=== PATIENT | female | born 1950 | race Caucasian/White ===

== ENCOUNTER 2022-11-05 07:15 | Outpatient (REF) | payer MEDICARE, OTHER, SELFPAY ==
[2022-11-05 08:05] LABS: Bilirubin Urine NEGATIVE (NEGATIVE); Blood Urine NEGATIVE (NEGATIVE); Clarity Urine CLEAR (CLEAR); Color Urine LT. YELLOW (YELLOW); Glucose Urine UA NEGATIVE (NEGATIVE); Ketones Urine NEGATIVE (NEGATIVE); Leukocyte Esterase Urine TRACE (NEGATIVE); Nitrite Urine NEGATIVE (NEGATIVE); Protein Urine NEGATIVE (NEG/TRACE); Specific Gravity Urine 1.015 (1.005-1.025); Urobilinogen Urine 0.2 EU/dL (0.2-1.0)
[2022-11-05 08:38] LABS: Bacteria Urine NONE SEEN #/HPF (NONE SEEN); Mucus Urine NONE SEEN (NONE SEEN); RBC Urine 0-2 #/HPF (0-2); WBC Urine 0-2 #/HPF (NONE SEEN)
[2022-11-05 08:39] LABS: Squamous Epithelial Cell Urine RARE #/LPF (NONE/RARE); Transitional Epi Cells Urine RARE #/LPF (NONE SEEN)
[2022-11-05 08:40] LABS: Cast Seen? NONE SEEN #/LPF (NONE SEEN); Crystals Seen? None Seen #/HPF (None Seen); Urine Culture Indicated ALREADY ORDERED
== END 2022-11-05 07:16 | disposition home or self-care (01) ==
LOC: LAB 07:15
PROVIDERS: PCP Internal Medicine; Visit Provider Internal Medicine
DX: R39.15 Urgency of urination (principal)
CPT/HCPCS: 81001; 87086

== ENCOUNTER 2022-11-24 14:41 | Outpatient (OUT) | payer MEDICARE, OTHER, SELFPAY | END 2022-11-24 14:42 | disposition home or self-care (01) | LOC: PST 14:42 | PROVIDERS: PCP Internal Medicine; Visit Provider Surgery | DX: Z01.818 Encounter for other preprocedural examination (principal); Z12.11 Encounter for screening for malignant neoplasm of colon; R13.14 Dysphagia, pharyngoesophageal phase ==

== ENCOUNTER 2022-12-03 07:36 | Day surgery (SDC) | payer MEDICARE, OTHER, SELFPAY ==
--- NOTE | 2022-12-03 | OP_ITS ---
OPERATION DATE: ??12/03/2022 PREOPERATIVE DIAGNOSIS:? Dysphagia, colorectal screening. POSTOPERATIVE DIAGNOSIS:? Antral gastritis, mild, as well as small hiatal hernia and redundant colon. PROCEDURE:? EGD with antral biopsy and colonoscopy to cecum. SURGEON:? Hayden Boston M.D. ANESTHESIA:? Monitored anesthesia care. ESTIMATED BLOOD LOSS:? Less than 1 mL. INDICATIONS AND CONSENT:? Patient is a 72-year-old female with intermittent dysphagia, as well as need for colorectal screening.? Indications, risks, benefits, alternatives of proceeding with EGD and colonoscopy were explained extensively to the patient, including the risks of bleeding, aspiration, esophageal/gastric/duodenal or colonic perforation or anesthetic complications.? All of her questions were answered.? Informed consent was obtained. PROCEDURE:? Patient brought to the operating room, placed in the left lateral decubitus position.? Monitored anesthesia care was provided.? Bite block was placed in the patient?s mouth.? Scope was inserted into the oropharynx.? Under direct visualization, it was advanced into the esophagus, past the cricopharyngeus, down to the stomach.? The stomach was insufflated with air.? The pylorus was traversed down to the descending portion of the duodenum.? There was no evidence of duodenitis or ulceration.? There was no scarring within the pyloric channel.?? Scope was pulled back into the stomach and retroflexed.? There was noted to be a small, sliding type hiatal hernia.? There was mild antral gastritis without ulcerations or bleeding.? Biopsy was obtained x2 with the pediatric cold biopsy forceps with good hemostasis.? The GE junction was noted at approximately 34 cm.? There was no distal esophagitis or Vicente?s changes. ?The remainder of the esophagus was unremarkable.? The scope was then withdrawn.? Patient was then positioned for colonoscopy.? Rectal exam was performed, which showed no masses or blood.? The scope was inserted into the anal canal.? Under direct visualization, it was advanced.? With the aid of abdominal compression, it was advanced to the cecum where cecal markings were clearly identified.? There was noted to be a good prep.? Upon withdrawal of the scope, mucosal surfaces were carefully examined.? There were no mass lesions or polyps.? No inflammatory changes or ulcerations.? No significant diverticulosis.? There was noted to be a redundant colon with spasm.? The scope was retroflexed in the anal canal.? There was no significant hemorrhoidal disease.? The scope was then withdrawn.? The patient tolerated procedure well, was sent to recovery room in good condition. f/u colonoscopy should be in 10 years if patient is in good health CC:? Dr. Michael GRIMM
[2022-12-03 08:01] VITALS: BP 124/57; PULSE 78; RESP 16; TEMP 36.1; O2SAT 100; BMI 24.5
[2022-12-03] MEDS: LACTATED RINGER'S SOLUTION 1,000 ML 50 ML IV (08:24)
[2022-12-03 10:16] VITALS: BP 95/62; PULSE 78; RESP 18; TEMP 36.1; O2SAT 100
[2022-12-03 10:31] VITALS: BP 102/65; PULSE 72; RESP 16; O2SAT 99
[2022-12-03 10:46] VITALS: BP 122/73; PULSE 72; RESP 16; O2SAT 100
== END 2022-12-03 10:46 | disposition home or self-care (01) ==
PROVIDERS: PCP Internal Medicine; Visit Provider Surgery
PROC: (CPT 43239; principal; 2022-12-03 08:45)
DX: Z12.11 Encounter for screening for malignant neoplasm of colon (principal); R13.14 Dysphagia, pharyngoesophageal phase; K29.50 Unspecified chronic gastritis without bleeding; K44.9 Diaphragmatic hernia without obstruction or gangrene; Q43.8 Other specified congenital malformations of intestine; D64.9 Anemia, unspecified; F41.9 Anxiety disorder, unspecified; K21.9 Gastro-esophageal reflux disease without esophagitis; Z94.89 Other transplanted organ and tissue status; Z86.010 Personal history of colon polyps; E03.9 Hypothyroidism, unspecified; C90.00 Multiple myeloma not having achieved remission; Z86.711 Personal history of pulmonary embolism; G47.30 Sleep apnea, unspecified; G62.9 Polyneuropathy, unspecified; Z79.899 Other long term (current) drug therapy
CPT/HCPCS: 43239; G0121; J2704

== ENCOUNTER 2023-07-30 10:37 | Outpatient (OUT) | payer MEDICARE, OTHER, SELFPAY ==
--- NOTE | 2023-07-30 10:45 | XR_ITS ---
The [address] [address] Patient Name: RYLAND GREENE MRN: [id number] date: 1950 Sex: F Assigned Patient Location: [facility] Current Patient Location: Accession/Order Number: [id number] Exam Date: 07/30/2023 10:55 Report Date: 07/31/2023 08:57 At the request of: ESTRELLA PRIETO Procedure: XR chest 2V EXAMINATION: XR chest 2V HISTORY: Cough R05.9 COMPARISON: XR chest 06/30/2022, CT chest 04/17/2022 FINDINGS: LUNGS: Mild haziness within lateral left lung base partially obscuring the costophrenic angle. VASCULATURE: No increased pulmonary vasculature. PLEURA: No pneumothorax, effusion, or pleural thickening. CARDIAC: No cardiomegaly or cardiac silhouette abnormality. MEDIASTINUM: No visible mass or adenopathy. BONES: Stable dense nodular like areas projecting over left lung secondary to known rib lesions. OTHER: Negative. XR/XR chest 2V IMPRESSION: 1. Trace amount of lingular atelectasis versus infiltrates. Electronically authenticated by: GREG MILLAN Date: 07/31/2023 08:57
== END 2023-07-30 10:38 | disposition home or self-care (01) ==
PROVIDERS: PCP Internal Medicine; Visit Provider Internal Medicine
DX: R05.9 Cough, unspecified (principal)
CPT/HCPCS: 71046

== ENCOUNTER 2023-08-20 16:16 | Outpatient (OUT) | payer MEDICARE, OTHER, SELFPAY ==
--- NOTE | 2023-08-20 16:47 | XR_ITS ---
The [address] [address] Patient Name: RYLAND GREENE MRN: [id number] date: 1950 Sex: F Assigned Patient Location: [facility] Current Patient Location: Accession/Order Number: [id number] Exam Date: 08/20/2023 16:38 Report Date: 08/21/2023 07:08 At the request of: ESTRELLA PRIETO Procedure: XR shoulder LT min 2V PROCEDURE: XR shoulder LT min 2V COMPARISON: None. HISTORY: M25.512 Pain in left shoulder FINDINGS: BONES:No acute fracture or dislocation. Mild acromioclavicular joint osteoarthritis with 3 mm of subacromial spurring. Degenerative spondylosis of the spine SOFT TISSUES:Negative. No visible soft tissue swelling. EFFUSION:None visible. OTHER: Negative. XR/XR shoulder LT min 2V IMPRESSION: Mild osteoarthritis Electronically authenticated by: PATSY REEDER Date: 08/21/2023 07:08
--- NOTE | 2023-08-20 16:47 | XR_ITS ---
The [place] [id number] Patient Name: RYLAND GREENE MRN: [id number] date: 1950 Sex: F Assigned Patient Location: [facility] Current Patient Location: [facility] Accession/Order Number: [id number] Exam Date: 08/20/2023 16:38 Report Date: 08/21/2023 07:31 At the request of: ESTRELLA PRIETO Procedure: XR cervical spine 5V EXAMINATION: XR cervical spine 5V HISTORY: M54.2 Cervicalgia COMPARISON: No relevant comparison available. FINDINGS: BONES: Normal alignment with no acute fracture or spondylolisthesis. Moderate to severe degenerative spondylosis and facet osteoarthropathy DISC SPACES: Normal. No significant disc height narrowing, subluxation, or endplate abnormality. PARASPINOUS: Negative. No paraspinous abnormality is seen. OTHER: No transient spondylolisthesis with flexion or extension XR/XR cervical spine 5V IMPRESSION: Moderate to severe degenerative changes with no dynamic instability Electronically authenticated by: PATSY REEDER Date: 08/21/2023 07:31
== END 2023-08-20 16:17 | disposition home or self-care (01) ==
PROVIDERS: PCP Internal Medicine; Visit Provider Internal Medicine
DX: M25.512 Pain in left shoulder (principal); M54.2 Cervicalgia
CPT/HCPCS: 72050; 73030

== ENCOUNTER 2023-09-04 06:00 | Outpatient (RCR) | payer MEDICARE, OTHER, SELFPAY | END 2023-10-30 15:06 | disposition home or self-care (01) | LOC: PT 06:00 | PROVIDERS: PCP Internal Medicine; Visit Provider Internal Medicine | DX: M54.2 Cervicalgia (principal); M25.519 Pain in unspecified shoulder; M62.81 Muscle weakness (generalized) | CPT/HCPCS: 20561; 97110; 97140; 97161 ==

== ENCOUNTER 2024-01-01 11:34 | Outpatient (OUT) | payer MEDICARE, OTHER, SELFPAY ==
--- NOTE | 2024-01-01 12:01 | CT_ITS ---
The [address] [address] Patient Name: RYLAND GREENE MRN: [id number] date: 1950 Sex: F Assigned Patient Location: LAB Current Patient Location: Accession/Order Number: [id number] Exam Date: 01/01/2024 12:18 Report Date: 01/05/2024 07:38 At the request of: ESTRELLA PRIETO Procedure: CT chest w con EXAMINATION: CT chest w con HISTORY: Persistent Cough, Dyspnea COMPARISON: 04/17/2022 TECHNIQUE: Multi-planar CT images were created with IV contrast. Axial, Coronal, and Sagittal images. Dose reduction techniques were achieved by using automated exposure control and/or adjustment of mA and/or kV according to patient size and/or use of iterative reconstruction technique. FINDINGS: LUNGS: Soft tissue in the trachea likely retained mucus. A few scattered punctate pulmonary nodules the largest 3 mm right upper lobe axial image 41 PLEURA: No mass, effusion, or pneumothorax. VASCULATURE: No abnormality. DAYAN: No mass or adenopathy. MEDIASTINUM: No mass or adenopathy. CARDIAC: No enlargement, pericardial thickening, or significant calcification. AORTA: No aneurysm or dissection. CHEST WALL: No mass or axillary adenopathy. BONES: Remote rib fractures LIMITED ABDOMEN: Diffuse hypoattenuation the liver consistent with hepatic steatosis OTHER: Negative. CT/CT chest w con IMPRESSION: No acute abnormality Electronically authenticated by: PATSY REEDER Date: 01/05/2024 07:38
[2024-01-01 12:08] LABS: Estimated GFR (African America >60 (>=60 mL/min/1.73m^2); Estimated GFR (Non-African Ame >60 (>=60 mL/min/1.73m^2)
== END 2024-01-01 11:35 | disposition home or self-care (01) ==
LOC: LAB 11:35
PROVIDERS: PCP Internal Medicine; Visit Provider Internal Medicine
DX: R05.3 Chronic cough (principal); R06.00 Dyspnea, unspecified; C90.00 Multiple myeloma not having achieved remission
CPT/HCPCS: 36415; 71260; 82565; Q9967

== ENCOUNTER 2024-02-02 10:53 | Outpatient (OUT) | payer MEDICARE, OTHER, SELFPAY ==
--- NOTE | 2024-02-02 11:09 | XR_ITS ---
The [address] [address] Patient Name: RYLAND GREENE MRN: [id number] date: 1950 Sex: F Assigned Patient Location: [facility] Current Patient Location: Accession/Order Number: [id number] Exam Date: 02/02/2024 11:20 Report Date: 02/04/2024 04:32 At the request of: ESTRELLA PRIETO Procedure: XR thoracic spine 3V EXAMINATION: XR thoracic spine 3V HISTORY: Back Pain COMPARISON: CT chest 01/01/2024 FINDINGS: BONES: Mild left convex curvature of thoracic spine. Grossly stable moderate compression fractures of T6, 7, and 8 vertebral bodies. Prior marked compression fractures and vertebroplasty of T12 and L1. DISC SPACES: Multilevel moderate narrowing. PARASPINOUS: Negative. No paraspinous abnormality is seen. OTHER: Negative. XR/XR thoracic spine 3V IMPRESSION: 1. Moderate compression fractures of T6, T7, and T8 vertebral bodies, but grossly stable compared to 01/01/2024. 2. Stable remote marked compression fractures of T12 and L1 with prior vertebroplasty. 3. No appreciable acute abnormality. Multilevel degenerative disc disease. Electronically authenticated by: GREG MILLAN Date: 02/04/2024 04:32
== END 2024-02-02 10:54 | disposition home or self-care (01) ==
LOC: RAD 10:55
PROVIDERS: PCP Internal Medicine; Visit Provider Internal Medicine
DX: M54.9 Dorsalgia, unspecified (principal); M48.54XD Collapsed vertebra, not elsewhere classified, thoracic region, subsequent encounter for fracture with routine healing; M48.56XD Collapsed vertebra, not elsewhere classified, lumbar region, subsequent encounter for fracture with routine healing; M51.34 Other intervertebral disc degeneration, thoracic region
CPT/HCPCS: 72072

== ENCOUNTER 2024-06-22 10:12 | Outpatient (OUT) | payer MEDICARE, OTHER, SELFPAY ==
--- NOTE | 2024-06-22 10:23 | XR_ITS ---
The [place] [id number] Patient Name: RYLAND GREENE MRN: [id number] date: 1950 Sex: F Assigned Patient Location: [facility] Current Patient Location: [facility] Accession/Order Number: [id number] Exam Date: 06/22/2024 11:09 Report Date: 06/22/2024 11:10 At the request of: ESTRELLA PRIETO DO Procedure: XR chest 2V Chest 2 views CLINICAL HISTORY: Chronic cough COMPARISON: CT chest 01/01/2024 FINDINGS: Heart normal in size. No lung consolidation pneumothorax pleural effusion or free air. Healed left-sided rib fractures. Compression deformities involving the thoracic spine similar to the prior study. XR/XR chest 2V IMPRESSION: NO ACUTE CARDIOPULMONARY ABNORMALITY. Impression dictated by: Ike Mack Jr., DRimmaORimma 06/22/2024 11:10 AM Dictation Location: [place] [employer] Electronically authenticated by: [id number] Y Date: 06/22/2024 11:10
== END 2024-06-22 10:13 | disposition home or self-care (01) ==
LOC: RAD 10:16
PROVIDERS: PCP Internal Medicine; Visit Provider Internal Medicine
DX: R05.3 Chronic cough (principal)
CPT/HCPCS: 71046

== ENCOUNTER 2024-08-10 08:29 | Outpatient (REF) | payer MEDICARE, OTHER, SELFPAY ==
--- OUTSIDE RECORDS SUMMARY | 2024-08-03 06:02 | XMS_ITS | Continuity of Care Document ---
Author Organization [facility] Address [address] [place] [address] Phone Support Name Relationship Address Phone [facility] [employer] [address] [place] [address] Wong Javed DO Personal Relationship [address] [place] [address] Rm Tate MD Personal Relationship Unknown Unavailable Care Teams Patient Care Team Team Status: Active Member Role Status Dates Wong Javed DO Primary Care Provider Active Visit Care Team Team Status: Inactive Member Role Status Dilhsad Javed DO Primary Care Provide r, Attending Provider Active Start: June 08, 2024 End: June 08, 2024 Visit Care Team Team Status: Active Member Role Status Dilshad Javed DO Primary Care Provider Active Start: June 15, 2024 Rm Tate MD Attending Provider Active St art: June 15, 2024 Visit Care Team Team Status: Inactive Member Role Status Dilshda Javed DO Primary Care Provide r, Attending Provider Active Start: July 20, 2024 End: July 20, 2024 Patient Care Team Team Status: Inactive Member Role Status Dilshad Javed DO Primary Care Provide r, Attending Provider Active Start: August 03, 2024 End: August 03, 2024 Chief Complaint and Reason for Visit Chief Complaint Admit Date headache, sore throat,cough June 08, 2024 3:13pm 1 week follow up July 20, 2024 11:39 am UA, Frequency, burning August 03, 2024 9 :52am Reason for Visit Admit Date Immunosuppression due to drug therapy Ap ril 2024 3:13pm Acute bronchitis due to other specified organisms June 08, 2024 3:13pm Allergic rhinitis July 20, 2024 11:39 am JOANNE (generalized anxiety disorder) June 242024 11:39am Hypothyroidism July 20, 2024 11:39 am Multiple myeloma July 20, 2024 11:39 am Persistent cough July 20, 2024 11:39 am Allergies, Adverse Reactions, Alerts Allergen Type Severity Reaction Last Updated Verified Status Comments acetaminophen Allergy Unknown Unknown Reaction June 08, 2024 3:17pm Yes Active clindamycin Allergy Unknown Vomiting June 08, 2024 3:17pm Yes Active Onset Date: 10/12/2012 lenalidomide Allergy Unknown Unknown Reaction June 08, 2024 3:17pm Yes Active oxycodone Allergy Unknown Unknown Reaction June 08, 2024 3:17pm Yes Active propoxyphene Allergy Unknown Unknown Reaction June 08, 2024 3:17pm Yes Active Sulfa (Sulfonamide Antibiotics) Allergy Unknown Unknown Reaction June 08, 2024 3:17pm Yes Active sulfamethoxazole Allergy Unknown Rash June 08, 2024 3:17pm Yes Active tramadol Allergy Unknown Rapid heart rate June 08, 2024 3:17pm Yes Active trimethoprim Allergy Unknown Rash June 08, 2024 3:17pm Yes Active zolpidem Allergy Unknown Anxiety June 08, 2024 3:17pm Yes Active codeine Allergy Unknown Unknown Reaction June 08, 2024 3:17pm Yes Active Antihistamine Allergy Unknown Unknown Reaction June 22, 2023 10:56am No Active zolpidem Allergy Unknown Rash October 09, 2023 1:37pm No Active antihistamines Adverse Reaction Unknown Anxiety March 12, 2021 11:00pm No Active Social History Smoking Status Status Start Date End Date Date of Observa tion Never smoked tobacco (finding) December 17, 2023 8:54am Observation Status Observation Response Date of Response Patient Sex Female August 03, 2024 10:01am Assigned Sex Female March Family History Relationship Condition Age at Onset Recorded Date/T rj father Heart disease Unknown Unknown mother History of stroke Unknown Unknown Problems Active Problems Medical Problem Onset Date Status Comments Immunosuppression due to drug therapy Act abraham JOANNE (generalized anxiety disorder) Active Pancytopenia due to chemotherapy Active Chronic pain Active Bone cancer Active myeloma diagnos ed in 2016 Back pain Active Hypothyroidism Active Lower extremity weakness Active Cervical spondylosis Active Anemia associated with chemotherapy Activ e Allergic rhinitis Active Chronic vasomotor rhinitis Active Arthritis of lumbosacral spine Active Multiple myeloma Active Persistent cough Active CXR: normal - T: normal - 06/2024 Inactive/Resolved Problems Medical Problem Onset Date Status Comments Acute pulmonary embolism Resolved Compression fracture Resolved Rash Resolved Medications Medication Status Dose Units Route Directions Qty Days St art Date Stop Date End Date Instructions Clonazepam 0.5 mg tablet Discont inued 0.5 MG PO Twice daily 60 30 June 03, 2023 1:29pm [facility] 2023 4:57p m Levothyroxin e 25 mcg tablet Discont inued 0 .ROUTE .COMPLEX 90 August 20, 2023 5:53pm Augus t 2023 1:43p m Take 1 tablet by mouth once daily Clonazepam 1 mg tablet Discont inued 0.5 MG PO Twice daily 30 2023 4:57pm 2023 5:03p m Clonazepam 1 mg tablet Discont inued 0.5 MG PO Twice daily 30 2023 5:03pm May 02, 2024 9:58a m Sertraline 100 mg tablet Discont inued 150 MG PO Bedtime 135 90 Novemb er 2023 1:04pm Feb 2024 6:44p m Benzonatate 200 mg capsule Discont inued 200 MG PO Three times daily 30 10 Novemb er 2023 1:58pm Feb 2024 10:18 pm Nabumetone 750 mg tablet Active 750 MG PO Twice daily 28 14 Decemb er 2023 11:51a m Ciprofloxaci n Hcl 250 mg tablet Discont inued 250 MG PO Twice daily 10 5 Decemb er 2023 1:00am Feb 2024 10:39 am Benzonatate 200 mg capsule Discont inued 200 MG PO Three times daily 30 2024 10:17p m April 25, 2024 2:03p m Sertraline 100 mg tablet Active 0 .ROUTE .COMPLEX 135 2024 6:44pm TAKE 1 & 1/2 (ONE & ONE-HALF) TABLETS BY MOUTH AT BEDTIME Benzonatate 200 mg capsule Discont inued 200 MG PO Three times daily 30 April 25, 2024 2:03pm May 02, 2024 8:40a m Benzonatate 200 mg capsule Discont inued 200 MG PO Three times daily 30 May 02, 2024 8:40am June 14, 2024 5:50p m Clonazepam 1 mg tablet Discont inued 0.5 MG PO Twice daily May 02, 2024 9:58am May 18, 2024 12:42 pm Gabapentin 100 mg capsule Active 300 MG PO Daily at bedtime May 18, 2024 12:41p m Clonazepam 1 mg tablet Active 0.5 MG PO Twice daily May 18, 2024 12:41p m Benzonatate 200 mg capsule Active 200 MG PO Three times daily 30 June 14, 2024 5:50pm Albuterol Sulfate 90 mcg/actuatio n HFA aerosol inhaler Discont inued 2 PUFF INHALA TION Every 6 hours as needed for cough or wheezing 8.5 June 22, 2024 12:00a m June 22, 2024 2:36p m Inhalational Spacing Device (Aerochamber Mini) spacer Discont inued 0 .ROUTE .MEDSUPPLY June 22, 2024 12:00a m June 22, 2024 2:36p m As directed Inhalational Spacing Device (Aerochamber Mini) spacer Active 0 .ROUTE .MEDSUPPLY June 22, 2024 2:35pm As directed Albuterol Sulfate 90 mcg/actuatio n HFA aerosol inhaler Active 2 PUFF INHALA TION Every 6 hours as needed for cough or wheezing 8.5 June 22, 2024 2:35pm Prednisone 20 mg tablet Discont inued 20 MG PO As Directed 10 29July 13, 2024 12:00a m July 13, 2024 1:33p m 1 tab bid w/ food x 3 days, then qd w/ food x 3 days Prednisone 20 mg tablet Discont inued 20 MG PO As Directed 10 29July 13, 2024 1:33pm July 20, 2024 9:59p m 1 tab bid w/ food x 3 days, then qd w/ food x 3 days Budesonide-F ormoterol (Symbicort) 80-4.5 mcg/actuatio n HFA aerosol inhaler Active 2 PUFF INHALA TION Every 12 hours 10.2 August 01, 2024 11:47a m Levothyroxin e 25 mcg Tablet Discont inued 25 MCG PO Daily Septem gagan 2016 12:00a m August 20, 2023 5:53p m Citalopram 20 mg Tablet Discont inued 20 MG PO Daily Septem gagan 2016 12:00a m Octob er 2016 3:41p m Esomeprazole Magnesium (Nexium) 40 mg Capsule,Fozia yed Release(Dr/E c) Discont inued 40 MG PO Daily Septem gagan 2016 12:00a m Septe mber 2016 9:42a m Gabapentin 100 mg Capsule Discont inued 100 MG PO Three times daily Septem gagan 2016 12:00a m Octob er 2016 3:40p m Clonazepam 0.5 mg Tablet,Disin tegrating Discont inued 0.5 TAB PO Twice daily Septem gagan 2016 12:00a m Octob er 2016 4:34p m Pantoprazole 40 mg tablet,delay ed release (DR/EC) Discont inued 40 MG PO Daily Oct gagan 2016 12:00a m [facility] gagan 2020 6:55p m Hydrocodone- Acetaminophe n 5-325 mg Tablet Discont inued 0.5 TAB PO Three times daily as needed for Pain Octobe r 2016 12:00a m [facility] 2016 3:23p m Clonazepam 0.5 mg Tablet Discont inued 0.5 MG PO [facility] 12:00[facility] m May 26, 2023 10:48 am Hydromorphon e (Dilaudid) 2 mg Tablet Discont inued 2 MG PO Q4H as needed for Pain 2017 1:00am June 10, 2017 9:26a m Warfarin (Coumadin) 2.5 mg tablet Discont inued 2.5 MG PO Twice a Week 2017 7:18am September 04, 2017 6:59a m Warfarin (Coumadin) 5 mg Tablet Discont inued 5 MG PO 5 TIMES PER WEEK June 01, 2017 12:00a m September 04, 2017 6:59a m Sertraline (Zoloft) 100 mg Tablet Discont inued 150 MG PO Daily at bedtime September 19, 2020 12:00a m Febua 2021 3:05a m Gabapentin 300 mg Capsule Discont inued 600 MG PO Daily at bedtime September 19, 2020 12:00a m July 31, 2023 8:35a m Gabapentin 300 mg Capsule Discont inued 300 MG PO Every morning September 19, 2020 12:00a m July 22, 2023 11:09 am Aspirin 81 mg Tablet Discont inued 81 MG PO Daily September 19, 2020 12:00a m Decem gagan 2020 6:55p m Melatonin 5 mg Tablet Discont inued 10 MG PO Bedtime September 19, 2020 12:00a m Decem gagan 2020 6:55p m Mecobalamin (Vitamin B12) (B12 Active) 1,000 mcg Tablet,Chewa ble Active 1000 MCG PO Daily September 19, 2020 12:00a m Sertraline 100 mg tablet Discont inued 150 MG PO Bedtime 2021 1:00am 2023 1:05p m Neomycin-Gorge ymyxin B-Dexameth 3.5 mg/g-10,000 unit/g-0.1 % ointment Discont inued 2021 1:00am 2021 3:33a m Lenalidomide (Revlimid) 10 mg capsule Discont inued 10 MG PO Daily 2021 1:00am July 31, 2023 8:41a m Ascorbic Acid (Vitamin C) (Vitamin C) 1,000 mg Tablet Discont inued 1000 UNITS PO daily Novemb er 2016 12:00a m September 20, 2020 11:29 am Acyclovir 400 mg Tablet Discont inued 400 MG PO Daily Novemb er 2016 12:00a m July 31, 2023 8:36a m Docusate Sodium (Colace) 100 mg Capsule Discont inued 200 MG PO Three times daily as needed for Constipatio n Novemb er 2016 12:00a m Febru krystal 2017 7:18a m Diclofenac Potassium 25 mg Capsule Discont inued 75 MG PO daily Novemb er 2016 12:00a m Novem gagan 2016 2:55p m Warfarin (Coumadin) 2.5 mg Tablet Discont inued 5 MG PO Once 30 Novemb er 2016 1:00am Febru krystal2017 7:18a m Enoxaparin (Lovenox) 80 mg/0.8 mL syringe Discont inued 70 MG SUBCUT Q12H 0.8 Novemb er 2016 1:00am Febru 2017 7:18a m Until INR > 2 for two days Docusate Sodium (Colace) 100 mg Capsule Discont inued 100 MG PO Daily as needed for Constipatio n May 08, 2017 12:00a m June 10, 2017 9:26a m Amitriptylin e 10 mg tablet Discont inued 1 TAB PO Daily at bedtime May 08, 2017 12:00a m September 19, 2020 3:17p m Warfarin 5 mg Tablet Discont inued 1 TAB PO As Directed June 10, 2017 12:00a m September 08, 2017 7:43a m Warfarin 5 mg tablet Discont inued 5 MG PO As Directed September 16, 2017 12:00a m September 19, 2020 3:12p m Rivaroxaban (Xarelto) 10 mg tablet Discont inued TABLET September 16, 2017 12:00a m September 16, 2017 2:31p m Thalidomide (Thalomid) 50 mg capsule Discont inued 50 MG PO Bedtime [facility] er 2020 1:00am Janua ry 2021 3:32a m Levofloxacin 500 mg tablet Discont inued 500 MG PO Daily [facility] er 2020 1:00am Dece gagan 2020 3:21p m UNTIL 02/11 Oxybutynin Chloride 5 mg tablet extended release 24hr Discont inued 5 MG PO Daily [facility] er 2020 1:00am July 22, 2023 11:09 am Nystatin (Nystop) 100,000 unit/gram Powder Discont inued 1 APPLIC TOPICA L Three times daily 15 [facility] er 2020 1:00am Janua ry 2021 3:33a m Use until rash is resolved Levofloxacin 750 mg tablet Discont inued 750 MG PO Daily 7 7 Decemb er 2020 1:00am Janua ry 2021 3:31a m Azithromycin 250 mg tablet Discont inued 250 MG PO As Directed 6 5 July 22, 2023 12:00a m July 31, 2023 8:37a m Gabapentin 100 mg capsule Discont inued 300 MG PO Daily at bedtime July 31, 2023 12:00a m May 18, 2024 12:42 pm [employer] Orally q HS; Note: Source Status: Taking; Provider: Tello Back ( ) Loperamide (Imodium A-D) 2 mg tablet Discont inued 2 MG PO Four times daily July 31, 2023 12:00a m July 31, 2023 8:42a m Albuterol Sulfate 90 mcg/actuatio n HFA aerosol inhaler Discont inued 2 PUFF INHALA TION Every 4 hours July 31, 2023 12:00a m July 31, 2023 8:41a m Benzonatate 200 mg capsule Discont inued 200 MG PO Three times daily July 31, 2023 12:00a m July 31, 2023 8:41a m Phenazopyrid ine 200 mg tablet Discont inued 200 MG PO Three times daily July 31, 2023 12:00a m July 31, 2023 8:42a m Acyclovir 400 mg tablet Discont inued 400 MG PO Twice daily July 31, 2023 12:00a m Febua ry 2024 10:25 am Levofloxacin 750 mg tablet Discont inued 750 MG PO Daily 5 5 July 31, 2023 12:00a m Augus t 2023 1:45p m Benzonatate 200 mg capsule Discont inued 200 MG PO Three times daily 30 July 31, 2023 12:00a m Novem gagan 2023 1:58p m Cephalexin 500 mg capsule Discont inued 500 MG PO Three times daily 12 09 Sept gagan 2023 12:00a m Octob er 2023 12:14 pm Azithromycin 250 mg tablet Discont inued 250 MG PO .COMPLEX 6 5 Octobe r 2023 12:00a m Decem gagan 2023 11:54 am 2 tabs on first day followed by 1 tab on days 2-5 Azithromycin 250 mg tablet Discont inued 250 MG PO .COMPLEX 6 5 r 2024 1:00am Febru krystal 2024 12:49 pm 2 tabs on first day followed by 1 tab on days 2-5 Azithromycin 250 mg tablet Discont inued 250 MG PO .COMPLEX 6 5 June 08, 2024 12:00a m July 20, 2024 9:59p m 2 tabs on first day followed by 1 tab on days 2-5 Clonazepam 0.5 mg tablet Discont inued 0.5 MG PO Twice daily May 26, 2023 12:00a m May 26, 2023 12:56 pm Clonazepam 0.5 mg tablet Discont inued 0.5 MG PO Twice daily 180 May 26, 2023 12:55p m June 02, 2023 4:37p m Clonazepam 0.5 mg tablet Discont inued 0.5 MG PO Twice daily 60 June 02, 2023 4:37pm June 03, 2023 1:30p m Nabumetone 750 mg tablet Discont inued 750 MG PO Twice daily 28 August 28, 2023 12:00a m Decem gagan 2023 11:52 am Azithromycin 250 mg tablet Discont inued 250 MG PO As Directed 6 October 09, 2023 12:00a m Octob er 2023 12:14 pm Levothyroxin e 25 mcg tablet Active 25 MCG PO Daily October 09, 2023 1:46pm Azithromycin 250 mg tablet Discont inued 250 MG PO .COMPLEX 6 5 ry 2024 12:49p m June 08, 2024 3:17p m 2 tabs on first day followed by 1 tab on days 2-5 Budesonide-F ormoterol (Symbicort) 80-4.5 mcg/actuatio n HFA aerosol inhaler Discont inued 2 PUFF INHALA TION Every 12 hours 10.2 July 20, 2024 12:00a m August 01, 2024 11:47 am Immunizations Immunization Event Date Not Given Reason Dose Number Insurance Policy Issue Clerk Lot Number Vaccine Information Statement (VIS) Detail COVID-19 mRNA-1273 (Moderna) March 10, 2020 COVID-19 mRNA-1273 (Moderna) April 06, 2020 DTap, unspecified May 23, 2016 influenza, unspecified formulation December 06, 2014 influenza, unspecified formulation December 06, 2015 influenza, unspecified formulation December 15, 2016 influenza, unspecified formulation December 08, 2017 influenza, unspecified formulation December 16, 2018 influenza, unspecified formulation November 16, 2019 influenza, unspecified formulation November 25, 2021 Pneumococcal Conjugate Vaccine, 13 valent April 05, 2015 Pneumococcal Polysacc. Vaccine, 23 valent December 12, 2013 Tetanus, Diphtheria adult, 5 Lf pres free abs November 26, 2012 Tetanus, Diphtheria adult, 5 Lf pres free abs December 12, 2013 Shingles (Zoster) June 07, 2014 Shingles (Zoster) March 06, 2021 Medical Equipment Device Date Implanted Device Details KYPHON XPEDE BONE CEMENT December 12, 2016 CONFIDENCE KIT NO NEEDLES March 30, 2017 Relevant Diagnostic Tests and/or Laboratory Data Laboratory Results Test Date/Time Result Interpretation Reference Range Result Comment Performing Site POC SARS-CoV-2 RNA (WILLIAM) June 08, 2024 3:28pm Negative Serum Immunofixati on June 15, 2024 10:29am No M protein is identified. No M protein is identified. Albumin (Send Out) June 15, 2024 10:29am 4.20 g/dL 3.43-5.41 Absolute CD3 Count June 15, 2024 10:29am 853 cells/uL Below low normal [phone] Free [place]/Lambda Light Chain Ratio June 15, 2024 10:29am 0.80 0.26-1.65 Immunoglobul in A June 15, 2024 10:29am 92 mg/dL 70-400 Serum Total Protein June 15, 2024 10:29am 6.4 g/dL 6.3-8.0 Alanine Aminotransfe rase (ALT/SGPT) June 15, 2024 10:29am 10 U/L 7-38 Basophils # (Auto) June 15, 2024 10:29am 0.03 k/uL <0.11 Leuk/Lymph Sign Pathologist (Misc) June 15, 2024 10:29am Reviewed by Rosangela Zuniga MD [id number] ulins June 15, 2024 10:29am 0.32 g/dL 0.18-0.43 Positive Lymphocyte Count (Cell Imm June 15, 2024 10:29am 19 % Below low normal 34-61 Free Lambda Light Chains, Quant June 15, 2024 10:29am 10.6 mg/L 5.7-26.3 Rarely, increased serum free light chains levels may not be detected or accurately quantified due to prozone phenomenon or in high viscosity samples using this immunoturbidime tric assay. Correlation with other laboratory results and clinical findings is recommended. The Lambda Free Light Chain was performed using the Binding Site Optilite immunoturbidime tric method. Result obtained with different assay methods or kits cannot be used interchangeably . Immunoglobul in G June 15, 2024 10:29am 694 mg/dL Below low normal 700-1600 Albumin June 15, 2024 10:29am 4.3 g/dL 3.9-4.9 Basophils (%) (Auto) June 15, 2024 10:29am 0.6 % [id number] ulins June 15, 2024 10:29am 0.63 g/dL 0.42-0.98 Percent CD3 Cells June 15, 2024 10:29am 69 % 60-89 Free [place] Light Chains, Quant June 15, 2024 10:29am 8.5 mg/L 3.3-19.4 Rarely, increased serum free light chains levels may not be detected or accurately quantified due to prozone phenomenon or in high viscosity samples using this immunoturbidime tric assay. Correlation with other laboratory results and clinical findings is recommended. The [place] Free Light Chain was performed using the Binding Site Optilite immunoturbidime tric method. Result obtained with different assay methods or kits cannot be used interchangeably . Immunoglobul in M June 15, 2024 10:29am 118 mg/dL 40-230 Aspartate Amino Transf (AST/SGOT) June 15, 2024 10:29am 19 U/L 13-35 Eosinophils # (Auto) June 15, 2024 10:29am 0.16 k/uL <0.46 Beta Globulins June 15, 2024 10:29am 0.67 g/dL 0.61-1.17 Absolute CD3/CD4 Count June 15, 2024 10:29am 237 cells/uL Below low normal 533-1674 Total Bilirubin June 15, 2024 10:29am 0.5 mg/dL 0.2-1.3 Eosinophils (%) (Auto) June 15, 2024 10:29am 3.2 % Gamma Globulins June 15, 2024 10:29am 0.58 g/dL 0.53-1.51 Carbon Dioxide Level June 15, 2024 10:29am 31 mmol/L Above high normal 22-30 Hemoglobin June 15, 2024 10:29am 12.8 g/dL 11.5-15.5 Protein Electrophore sis Note June 15, 2024 10:29am No definitive M protein is identified on protein electrophor esis. No definitive M protein is identified on protein electrophor esis. Chloride Level June 15, 2024 10:29am 98 mmol/L 98-107 Lymphocytes # (Auto) June 15, 2024 10:29am 1.26 k/uL 1.00-4.00 Protein Electrophore sis M-Kit June 15, 2024 10:29am 0.00 g/dL <=0.00 Creatinine June 15, 2024 10:29am 0.80 mg/dL 0.58-0.96 Lymphocytes (%) (Auto) June 15, 2024 10:29am 25.0 % Miscellaneou s Test 6 June 15, 2024 10:29am See comment Not Applicable. Glucose Level June 15, 2024 10:29am 95 mg/dL 74-99 The [place] Diabetes Association (ADA) provides guidance for cutoff values for fasting glucose and random glucose. The ADA defines fasting as no caloric intake for at least 8 hours. Fasting plasma glucose results between 100 to 125 mg/dL indicate increased risk for diabetes (prediabetes).F asting plasma glucose results greater than or equal to 126 mg/dL meet the criteria for diagnosis of diabetes. In the absence of unequivocal hyperglycemia, results should be confirmed by repeat testing. In a patient with classic symptoms of hyperglycemia or hyperglycemic crisis, random plasma glucose results greater than or equal to 200 mg/dL meet the criteria for diagnosis of diabetes.Refere nce: Standards of Medical Care in Diabetes 2016, [place] Diabetes Association. Diabetes Care. 2016.39(Suppl 1). Monocytes # (Auto) June 15, 2024 10:29am 0.37 k/uL <0.87 Miscellaneou s Test Comment June 15, 2024 10:29am Reviewed by Rosangela Zuniga MD Potassium Level June 15, 2024 10:29am 3.5 mmol/L Below low normal 3.7-5.1 Neutrophils # (Auto) June 15, 2024 10:29am 3.19 k/uL 1.45-7.50 Neutrophils (%) (Auto) June 15, 2024 10:29am 63.4 % Sodium Level June 15, 2024 10:29am 139 mmol/L 136-144 Nucleated Red Blood Cells # June 15, 2024 10:29am <0.01 k/uL <0.01 Blood Urea Nitrogen June 15, 2024 10:29am 12 mg/dL 7-21 Platelet Count June 15, 2024 10:29am 149 k/uL Below low normal 150-400 Alkaline Phosphatase June 15, 2024 10:29am 93 U/L 34-123 Mean Corpuscular Hemoglobin June 15, 2024 10:29am 30.9 pg 26.0-34.0 Calcium Level June 15, 2024 10:29am 10.1 mg/dL 8.5-10.2 Mean Corpuscular Hemoglobin Concent June 15, 2024 10:29am 33.4 g/dL 30.5-36.0 Anion Gap June 15, 2024 10:29am 10 mmol/L 8-15 Mean Corpuscular Volume June 15, 2024 10:29am 92.5 fL 80.0-100.0 Estimated GFR (CKD-EPI) June 15, 2024 10:29am 76 mL/min/1.73 m??? >=60 Estimated Glomerular Filtration Rate (eGFR) is calculated using the 2020 CKD-EPI creatinine equation. This equation utilizes serum creatinine, sex, and age as parameters. The creatinine assay has traceable calibration to isotope dilution-mass spectrometry. Refer to KDIGO guidelines for clinical interpretation. In patients with unstable renal function, e.g. those with acute kidney injury, the eGFR may not accurately reflect actual GFR. Red Blood Count June 15, 2024 10:29am 4.14 m/uL 3.90-5.20 Hematocrit June 15, 2024 10:29am 38.3 % 36.0-46.0 Monocytes (%) (Auto) June 15, 2024 10:29am 7.4 % Corrected White Blood Count June 15, 2024 10:29am 5.03 k/uL 3.70-11.00 Nucleated RBC Relative Count (auto) June 15, 2024 10:29am 0.0 /100{WBC} Red Cell Distribution Width June 15, 2024 10:29am 12.9 % 11.5-15.0 Mean Platelet Volume June 15, 2024 10:29am 9.3 fL 9.0-12.7 Differential Comment June 15, 2024 10:29am Auto Immature Granulocyte # (Auto) June 15, 2024 10:29am <0.03 k/uL <0.10 Immature Granulocyte % (Auto) June 15, 2024 10:29am 0.4 % Vital Signs Vital Reading Result Reference Range Collection Date/Time Height 63 [in_i] June 08 3:20pm Weight 61.34 kg June 08 3:20pm Heart Rate 92 /min 60-100 June 08 3:20pm Respiratory rate 12 /min 12-24 June 08, 2024 3:20pm BP Systolic 114 mm[Hg] 100-140 June 08 3:20pm BP Diastolic 75 mm[Hg] 60-100 June 08 3:20pm BMI (Body Mass Index) 23.9 kg/m2 June 08, 2024 3:20pm Height 63 [in_i] July 20, 2024 11:52am Weight 61.29 kg July 20, 2024 11:52am Heart Rate 86 /min 60-100 July 20, 2024 11:52am Respiratory rate 12 /min 12-24 July 20, 2 025 11:52am BP Systolic 95 mm[Hg] 100-140 July 20, 2024 11:52am BP Diastolic 61 mm[Hg] 60-100 July 20, 2024 11:52am BMI (Body Mass Index) 23.9 kg/m2 July 202024 11:52am Advance Directives Advance Directive Response Recorded Date/ Time Advance Directives Yes December 17, 2023 8:54am Insurance Providers Guarantor Matilda Owens Address [address] [address] Contact Info. Home Phone: Payer Policy Id Coverage Id Subscriber's Name Subscriber Id Effective Date Expiration Date Medicare [id number] Matilda Owens [id number] Medicare [employer] [id number] Matilda Owens [id number] Medicare Nonpatient [id number] Matilda Owens [id number] Encounters Encounter Location(s) Arrival/Admit Date Discharge/Depart Date Provider(s) Departed Physician/Prov ider Office Visit [facility] Physician [facility] June 08, 2024 3:13pm June 08, 2024 3:58pm Wong Javed DO Non-patient / Non-visit [facility] Physician [facility] June 15, 2024 10:29am Rm Tate MD Departed Physician/Prov ider Office Visit [facility] July 20, 2024 11:39am July 20, 2024 12:34pm Wong Javed DO Departed Physician/Prov ider Office Visit [facility] August 03, 2024 9:52am August 03, 2024 10:01am Wong Javed DO Recent Diagnosis Onset Date Admit Date Immunosuppression due to drug therapy June 08, 2024 3:13pm Acute bronchitis due to other specified organism s June 08, 2024 3:13pm Allergic rhinitis July 20, 2024 11:39am JOANNE (generalized anxiety disorder) July 20, 2024 11:39am Hypothyroidism July 20, 2024 1 1:39am Multiple myeloma July 20, 2024 11:39am Persistent cough July 20, 2024 11:39am Assessments Diagnosis Onset Date Resolution Status Admit Date Immunosuppression due to kris g therapy acute June 08, 2024 3:13pm Acute bronchitis due to othe r specified organisms deleted June 08, 2024 3:13pm Allergic rhinitis acute June 11:39am JOANNE (generalized anxiety disorder) a cute July 20, 2024 11:39am Hypothyroidism acute July 20, 2024 11:39am Multiple myeloma acute June 11:39am Persistent cough acute June 11:39am Plan of Treatment Author Wong [facility] Authored June 08, 2024 3:4 5pm I have instructed this patie nt to use Robitussin or Mucinex for cough, saline and Flonase NS for congestion and Tylenol for pain and fever. Continue antibiotics until all the medication has been taken. Report to the ER if develop any CP or SOB She completed CAR-T for Multiple Myeloma Treatment to avoid severe infection. Author Wong [facility] Authored July 20, 2024 10:05 pm Began w/ URI in early May,. Cough is generally nonproductive w/ thick sputum expectorated on occasion. Denies CP, SOB, palpitations, Orthopnea or PND Denies fever, chills or additional symptoms of intercurrent infection CXR: normal - 05/2024 CT: normal - 06/2024 Schedule PFT Refer to Pulmonology Completed CAR-T immunotherapy. No s/s recurrence f/u Oncology Instructed on healthy diet and low intensity exercise. Continue Clonazepam and Sertraline w/o interruption Clinically euthyroid, monitor TSH yearly Continue Flonase daily. Future Tests Future scheduled test information is unavailable Pending Tests Pending diagnostic test information is unavailable Future Visits Future appointment information is unavailable Referrals to Other Providers Reason for Referral Referral Start Date Provider Provider Contact Information Provider Address R05.3 - Chronic cough July 20, 2024 Nya Esposito DO Work Phone: [phone] [facility] [address] Future Procedures Procedure Name Ordered Date Scheduled Date Complete Pulmonary Function July 20, 2024 10:05 pm Future Medications Future medication information is unavailable Patient Instructions Patient instructions are unavailable
--- OUTSIDE RECORDS SUMMARY | 2024-08-10 08:35 | XMS_ITS | Clinical Summary ---
Author Organization [facility] Address [address] [place] [address] Care Team Providers Care Basket Braider Name Role Phone Unavailable Primary Care Provider Unavailabl e Social History Tobacco Use Types Packs/Day Years Used Date Smoking Tobacco: Never Assessed Comments Unknown Sex and Gender Information Value Date Recorded Sex Assigned at Not on file Legal Sex Female 12:25 PM EDT Gender Identity Not on file Sexual Orientation Not on file Plan of Treatment Not on file Insurance MEDICARE
--- OUTSIDE RECORDS SUMMARY | 2024-08-10 08:35 | XMS_ITS | Encounter Summary ---
Author Organization [facility] Address [address] [place] [address] Care Team Providers Care Director Summer Sessions Name Role Phone Wong Javed DO Primary Care Provider [phone] Rm Tate MD Unavailable [phone] Gracia Bruner MD Unavailable France Boswell RN Unavailable Unavailable Source Comments In the event this information is protected by the Federal Confidentiality of Alcohol and Drug AbusePatient Records regulations: The Federal rules restrict any use of the information to criminally investigate or prosecute any alcohol or drug abuse patient.[facility] Reason for Visit * Reason Comments Refill Request Encounter Details Date Type Department Care Team (Late st Contact Info) Description 04/04/2024 Refill Hematology/Oncology [address] [place] [address] [place] [address] Rm Tate MD [address] [facility] [place] [address] Refill Request Social History Tobacco Use Types Packs/Day Years Used Date Smoking Tobacco: Never Passive Smoke Exposure: Past Smokeless Tobacco: Never Alcohol Use Standard Drinks/Week Comments Yes 0 (1 standard drink = 0.6 oz pur e alcohol) socially PHQ-2 Answer Date Recorded PHQ-2 score 0 03/09/2024 Area Deprivation Index Answer Date Bryan rded National Score (1-100), lower number is lower ri sk Not on file 01/28/2020 State Score (1-10), lower number is lower risk N ot on file 01/28/2020 Data from: https://www.neighborhoodatlas.medicine.[facility]/. 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 Answer Date of Assessment Author No 01/06/2022 11:27 AM Emperatriz Gonzales RN * Are you blind or do you have serious difficulty seeing, even when wearing glasses? Answer Date of Assessment Author No 01/06/2022 11:27 AM Emperatriz Gonzales RN * Do you have serious difficulty walking or climbing stairs? Answer Date of Assessment Author No 01/06/2022 11:27 AM Emperatriz Gonzales RN * Do you have difficulty dressing or bathing? Answer Date of Assessment Author No 01/06/2022 11:27 AM Emperatriz Gonzales RN * Because of a physical, mental, or emotional condition, do you have difficulty doing errands alone such as visiting a doctor's office or shopping? Answer Date of Assessment Author No 01/06/2022 11:27 AM Emperatriz Gonzales RN documented as of this encounter Mental Status * Because of a physical, mental, or emotional condition, do you have serious difficulty concentrating, remembering, or making decisions? Answer Entry Date Author No 01/06/2022 11:27 AM Emperatriz Gonzales RN documented in this encounter Plan of Treatment Upcoming Encounters Date Type Department Care Team (Latest Contact Info) Description 09/30/2024 9:45 AM EDT Visit (SP) Office Hematology [address] [place], [place] [id number] Rm Tate MD [address] [place] [address] Tate 09/29/24, labs 1 week prior documented as of this encounter Visit Diagnoses Not on filedocumented in this encounter Care Teams Director Summer Sessions Relationship Specialty Start Date End Date Wong Javed DO [address] [place] [address] PCP - General Internal Medicine 11/04/16 Rm Tate MD [address] [place] [address] Physician Hematology/Oncology 03/01/19 [place] [address] [place] [address] Physician Blood and Marrow Transplant 09/17/21 France Boswell, HAMZAH Specialty Land Management Supervisor Hematology/Oncology 10/22/23 Dr Hailee Cartagena [address] [address] Physician Oncology 03/05/23 documented as of this encounter
--- OUTSIDE RECORDS SUMMARY | 2024-08-10 08:35 | XMS_ITS | Clinical Summary ---
Author Organization [facility] Address [address] [place] [address] Care Team Providers Care Cap Lining Machine Operator Name Role Phone Unavailable Primary Care Provider Unavailabl e Social History Tobacco Use Types Packs/Day Years Used Date Smoking Tobacco: Never Assessed Comments Unknown Sex and Gender Information Value Date Recorded Sex Assigned at Not on file Legal Sex Female 7:13 PM EDT Gender Identity Not on file Sexual Orientation Not on file Last Filed Vital Signs Vital Sign Reading Time Taken Comments Blood Pressure 116/72 10/27/2017 12:00 PM EDT Pulse - - Temperature - - Respiratory Rate - - Oxygen Saturation - - Inhaled Oxygen Concentration - - Weight 62.1 kg (137 lb) 10/27/2017 12:00 PM EDT Height 157.5 cm (5' 2 ) 10/27/2017 12:00 PM EDT Body Mass Index 25.06 10/27/2017 12:00 PM EDT Plan of Treatment Health Maintenance Due Date Last Done Comments Pneumococcal Vaccine: 65+ Years Completed 06/24/2022, 12/15/2016, 04/05/2015, Additional history exists Influenza Vaccine Completed 12/01/2023, , 11/25/2021, Additional history [place] [address]
--- OUTSIDE RECORDS SUMMARY | 2024-08-10 08:36 | XMS_ITS | Encounter Summary ---
Author Organization [facility] Address [address] [place] [address] Care Team Providers Care Firmware Test Engineer Name Role Phone Wong Javed Primary Care Provider Verónica Shepard RN Unavailable [phone] Rm Tate MD Unavailable [phone] Mary Bear PA-C Unavailable [phone] Gracia Bruner MD Unavailable Dorinda Daly RN Unavailable [phone] Tahira Carrillo Unavailable [phone] France Boswell RN Unavailable Unavailable Source Comments In the event this information is protected by the Federal Confidentiality of Alcohol and Drug AbusePatient Records regulations: The Federal rules restrict any use of the information to criminally investigate or prosecute any alcohol or drug abuse patient.[facility] Encounter Details Date Type Department Care Team (Latest Contact Info) Description 02/11/2021 H&P External-NonCCF Provider, GELACIO Zhang Do not enter address information under generic External Provider. Social History Tobacco Use Types Packs/Day Years Used Date Smoking Tobacco: Never Smokeless Tobacco: Never Alcohol Use Standard Drinks/Week Comments No 0 (1 standard drink = 0.6 oz pur e alcohol) PHQ-2 Answer Date Recorded PHQ-2 score 1 01/29/2021 Area Deprivation Index Answer Date Bryan rded National Score (1-100), lower number is lower ri sk Not on file 01/28/2020 State Score (1-10), lower number is lower risk N ot on file 01/28/2020 Data from: https://www.neighborhoodatlas.medicine.[facility]/. 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 No / Unsure 02/08/2021 1:40 PM EST documented as of this encounter Functional Status * Are you deaf or do you have serious difficulty hearing? Answer Date of Assessment Author No 02/03/2021 1:46 PM EST Kitty Timmons RN * Are you blind or do you have serious difficulty seeing, even when wearing glasses? Answer Date of Assessment Author No 02/03/2021 1:46 PM EST Kitty Timmons RN * Do you have serious difficulty walking or climbing stairs? Answer Date of Assessment Author No 02/03/2021 1:46 PM Kitty Jiang RN * Do you have difficulty dressing or bathing? Answer Date of Assessment Author No 02/03/2021 1:46 PM Kitty Jiang RN * Because of a physical, mental, or emotional condition, do you have difficulty doing errands alone such as visiting a doctor's office or shopping? Answer Date of Assessment Author No 02/03/2021 1:46 PM Kitty Jiang RN documented as of this encounter Mental Status * Because of a physical, mental, or emotional condition, do you have serious difficulty concentrating, remembering, or making decisions? Answer Entry Date Author No 02/03/2021 1:46 PM EST Kitty Timmons RN documented in this encounter Plan of Treatment Upcoming Encounters Date Type Department Care Team (Latest Contact Info) Description 09/30/2024 9:45 AM EDT Visit (SP) Office Hematology [address] [place] [address] Rm Tate MD [address] [place] [address] [address] Tate 09/29/24, labs 1 week prior documented as of this encounter Visit Diagnoses Not on filedocumented in this encounter Additional Health Concerns Infection Onset Date Last Indicated Resolved Time COVID-19 Rule-Out 01/29/2021 01/28/2021 02/18/2021 8:51 PM EST COVID-19 Rule-Out 12/30/2021 12/30/2021 12/30/2021 4:25 PM EST documented as of this encounter Care Teams Firmware Test Engineer Relationship Specialty Start Date End Date Wong Javed DO [address] [place] [address] PCP - General Internal Medicine 11/04/16 Verónica Shepard RN [address] [place] [address] [place] [address] Specialty Gear Shaper Set Up Operator Hematology/Oncology 02/04/17 09/15/23 Rm Tate MD [address] [place] [address] Physician Hematology/Oncology 03/01/19 Mary Bear PAStacyC [address] [place] [address] [place] [address] Physician Ore Crusher Hematology/Oncology 03/01/19 [place] [address] [place] [address] Physician Blood and Marrow Transplant 09/17/21 Dorinda Daly, HAMZAH [address] [place] [address] Specialty Gear Shaper Set Up Operator Blood and Marrow Transplant 09/17/21 04/03/22 Tahira Carrillo LISW [address] [place] [address] Project Manager Finance Blood and Marrow Transplant 10/09/21 05/28/22 France Boswell, HAMZAH Specialty Gear Shaper Set Up Operator Hematology/Oncology 10/22/23 Dr Hailee Cartagena [address] [address] Physician Oncology 03/05/23 documented as of this encounter
--- OUTSIDE RECORDS SUMMARY | 2024-08-10 08:36 | XMS_ITS | Encounter Summary ---
Author Organization [facility] Address [address] [place] [address] Care Team Providers Care Performance Test Architect Name Role Phone Wong Javed Primary Care Provider [phone] Verónica Shepard RN Unavailable [phone] Rm Tate MD Unavailable [phone] Mary Bear PA-C Unavailable [phone] Gracia Bruner MD Unavailable Dorinda Daly RN Unavailable [phone] Tahira Carrillo Unavailable [phone] France Boswell RN Unavailable Unavailable Source Comments In the event this information is protected by the Federal Confidentiality of Alcohol and Drug AbusePatient Records regulations: The Federal rules restrict any use of the information to criminally investigate or prosecute any alcohol or drug abuse patient.[facility] Encounter Details Date Type Department Care Team (Late st Contact Info) Description 01/23/2021 Tumor Board Hematology/Oncology [address] [place] [address] Cynthia Flores APRN.HOT AIR FURNACE INSTALLER REPAIRER [address] [place] [id number] Social History Tobacco Use Types Packs/Day Years Used Date Smoking Tobacco: Never Smokeless Tobacco: Never Alcohol Use Standard Drinks/Week Comments No 0 (1 standard drink = 0.6 oz pur e alcohol) PHQ-2 Answer Date Recorded PHQ-2 score 0 09/21/2020 Area Deprivation Index Answer Date Bryan rded National Score (1-100), lower number is lower ri sk Not on file 01/28/2020 State Score (1-10), lower number is lower risk N ot on file 01/28/2020 Data from: https://www.neighborhoodatlas.medicine.[facility].edu/. 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 No / Unsure 01/23/2021 1:58 PM EST documented as of this encounter Plan of Treatment Upcoming Encounters Date Type Department Care Team (Latest Contact Info) Description 09/30/2024 9:45 AM EDT Visit (SP) Office Hematology [address] [place], [place] [id number] Rm Tate MD [address] [place] [address] [address] Tate 09/29/24, labs 1 week prior documented as of this encounter Visit Diagnoses Not on filedocumented in this encounter Additional Health Concerns Infection Onset Date Last Indicated Resolved Time COVID-19 Rule-Out 01/29/2021 01/28/2021 02/18/2021 8:51 PM EST COVID-19 Rule-Out 12/30/2021 12/30/202112/3012/30/2021 4:25 PM EST documented as of this encounter Care Teams Performance Test Architect Relationship Specialty Start Date End Date Wong Javed DO [address] [place] [address] PCP - General Internal Medicine 11/04/16 Verónica Shepard RN [address] [place] [address] Specialty Heel Gummer Hematology/Oncology 02/04/17 09/15/23 Rm Tate MD [address] [facility] [place] [address] Physician Hematology/Oncology 03/01/19 Mary Bear, PAStacyC [address] [address] Physician Cut Out Machine Operator Hematology/Oncology 03/01/19 [place] [address] [place] [address] Physician Blood and Marrow Transplant 09/17/21 Dorinda Daly, HAMZAH [address] [place] [address] Specialty Heel Gummer Blood and Marrow Transplant 09/17/21 04/03/[address] [place] [address] Hat Marker Blood and Marrow Transplant 10/09/21 05/28/22 France Boswell, HAMZAH Specialty Heel Gummer Hematology/Oncology 10/22/23 Dr Hailee Cartagena [address] [place] [address] Physician Oncology 03/05/23 documented as of this encounter
--- OUTSIDE RECORDS SUMMARY | 2024-08-10 08:36 | XMS_ITS ---
Author Organization [facility] Address [address] [place] [id number] Care Team Providers Care Carburizer Name Role Phone Wong Javed DO Primary Care Provider [phone] Rm Tate MD Unavailable Gracia Bruner MD Unavailable France Boswell RN Unavailable Unavailable Active Problems * This document contains information received from the source organization and may not represent a complete record from that organization. Patient Care Coordination No te Formatting of this note migh t be different from the original. 10/07/21 My Journey Binder offered. Pt. declined- already has binder. ONCOLOGY PATIENT EDUCATION NOTE TOPIC: Chemotherapy, Medications: Darzalex, Carfilzomib READINESS TO LEARN: COGNITIVE ABILITY: Alert and oriented MOTIVATION TO LEARN: Interested FAMILY SUPPORT: High - Very involved in pt care INSTRUCTION PROVIDED TO: Patient and Spouse INSTRUCTION PROVIDED BY: Nurse Coordinator PATIENT LEARNS BEST BY: Multiple Methods FACTORS AFFECTING LEARNING: None PHYSICAL LIMITATIONS AFFECTING LEARNING: None LEARNING RESPONSE DIAGNOSIS: Multiple Myeloma METHOD OF INSTRUCTION: Individual instruction Written instruction - handouts Verbal instruction PATIENT/FAMILY RESPONSE: Verbalizes understanding of: CHEMOTHERAPY-Regimen, toxicity and side effects INFECTION MANAGEMENT-Signs and symptoms of an infection and importance of contacting the physician MEDICAL REGIMEN-Importance of following prescribed medical regimen MEDICATION PRESCRIBED-Accurate knowledge of prescribed medication prior to discharge MEDICATION ROUTE-Correct route for administration of the prescribed medication MEDICATION SIDE EFFECTS-Side effects associated with the medication that warrant a call to the physician PATIENT SAFETY PRINCIPLES SYMPTOM MANAGEMENT-Correct actions to take to manage symptoms associated with his/her disease/illness WORSENING CONDITION-Signs and symptoms of a worsening condition that warrant a call to the physician Information received as demonstrated by interest and questions FOLLOW UP PLAN: Patient instructed to call with any further issues Recommend - Recommend continued instruction and follow up as directed Follow up phone call. Contact information given. SUPPLEMENTAL MATERIAL: Written material was provided at this visit with the following information: - Chemotherapy education was provided by a pharmacist NO - Side effect management information was provided/discussed including but not limited to: abdominal discomfort, anemia, appetite changes, arthralgia, bowel habit changes, chest pain, diet, electrolyte disturbances, fatigue, headache, hypersensitivity reaction, infection, myalgia, nausea/vomitting, neutropenia, rash, risk for DVT, shortness of breath, skin changes, taste changes, thrombocytopenia YES - Provided important phone numbers and contacts during and after hours. YES - Provided information on symptoms that require immediate assistance. YES - Provided Chemotherapy when to call handouts YES - Preventing infection. YES - Treatment schedule and confirmation of appointment times. YES - Available support groups. YES - The importance of contraception during the course of chemotherapy YES - Prescriptions for anti-emetics or treatment prep was given: Compazine and Zofran. YES - Neutropenic fever protocol discussed with patient, which included the importance of reporting any fever of 100.4F (38.0C) or greater to the healthcare team as noted on the provided wallet card and/or magnet. 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 Overview (01/02/2022): 12/31: 38.4F associated sx of Neurotox BMT protocol ordered Zosyn (12/31-01/02) Blood Cx NTD, UA-neg/UC neg CXR-tiny Pl Effusions Multiple myeloma not having achieved remission 1 03/01/2021 History of engineered cell therapy infusion 08/2021 Overview (01/10/2022): Protocol: Abecma for MM Care Path Lymphodepleting regimen: FluCy Date of cellular therapy infusion: 12/30/2021 Insomnia 12/30/2021 Overview (12/30/2021): Continue home trazodone At risk for infection due to immunosuppression 1 03/01/2021 Overview (01/02/2022): Acy, Cipro & Keppra Empiric Zosyn (12/31-01/02) Pancytopenia due to antineoplastic chemotherapy 12/30/2021 Overview (12/30/2021): Transfuse RBC's and Platelets per protocol, Neupogen per protocol, Hgb<7, plts<10 GERD (gastroesophageal reflux disease) 2 Encounter for chemotherapy management 01/29/2021 Overview (02/01/2021): Admitted for C1D1 VTD PACE on 01/29 Thalidomide 50mg qhs Dex 40mg D1-4 velcade (1mg/m2) D 1,4,8 Cisplatin (5mg/m2), etoposide (30mg/m2), cyclophosphamide (10mg/m2) Day 1-4 Plan - Scheduled for neulasta 02/05 in [place] - orders per [facility] discharge follow-up 01/29/2021 Overview (02/01/2021): Will need Levaquin ppx neulasta (Misty 02/05) Day 8 velcade [place] 02/05 Remove PICC prior to d/c 2/weekly labs and PRN transfusions (ordered) Hypothyroidism 01/29/2021 Overview (01/29/2021): Home med: synthroid 25mcg Plan - continue home synthroid Neuropathy 01/29/2021 Overview (01/30/2021): Home med gabapentin 200mg BID Plan - continue home gabapentin Multiple myeloma in relapse 01/29/2021 Hypokalemia 02/10/2020 Nocturnal leg cramps 07/22/2017 Anxiety 04/01/2017 Overview (12/30/2021): Home meds: zoloft 100mg and klonopin 0.5mg BID Plan - continue home meds Other pulmonary embolism without acute cor pulmo nale 01/12/2017 Multiple myeloma 12/01/2016 Overview (12/30/2021): Multiple myeloma diagnosed October 2016 when patient presented with back pain and MRI showed multiple bony abnormalities. Bone marrow November 2016 with 36% plasma cell involvement. Fish with deletion 13 and no other abnormalities. Normal cytogenetics Therapy: 1. VRD started 11/2016-05/2018 and then developed neuropathy and also rash to Revlimid per Dr. Faust 2. Pomalidomide and Dex on 06/2018. But her disease was progressing as well at the time of the switch. 3. Kyprolis, Darzalex and Dex 07/11/2019- Dex at 20 mg weekly-11/16/2019 with progression. 4. KCD- Started 12/02/2019- Cytoxan stopped 05/2020 due to increased GI side effects.- Last therapy 08/03/2020- Progression 07/2020 5. BOSTON regimen 09/21/2020- Dose of Xpovio reduced to 80 mg weekly mid cycle 1. - M proteins 11/2020 with progression. Was considered for CAR-T but the timing is unavailable at this time 6. Blenrep 12/11/2020-01/22/2021- Progression. 7. VTD- PACE 01/29/2021 8. KCD plus Rev 03/05/2021 9. VTD- PACE 01/29/2021 10. KCD plus Rev 03/05/2021, Cytoxan stopped Day 15 of cycle 1 due to tolerance issues. 11. Melina added to KRD- 04/02/2021. Lenalidomide and Kyprolis was held secondary to cytopenia and restart with dose modifications with cycle 3-05/29/2021, her carfilzomib dose is 56 mg per metered squared once weekly and currently she is on 5 mg every day of the lenalidomide 21 out of a 28-day regimen and tolerating well. Rev changed to 5 mg every other day 09/17/2021 due to GI side effects 12. ABECMA CAR T therapy 12/30/21 Hypercalcemia 11/17/2016 Anemia 11/14/2016 Bone pain 11/14/2016 Current Treatment and Therapy Plans No current plan information found. Past Treatment and Therapy Plans BMT CHEMO Plan Name Start Date Discontinue Date Treatment Medications Discontinue Reason Plan Provider Cycles AMB/IP CAR T-CELL ABECMA WITH BENDAMUSTINE 12/27/19 22 04/03/2022 allopurinol (ZYLOPRIM)bendamu heydi iv piggyback in NaCl 0.9% 500 mL (BELRAPZO)idecabt agene vicleucel (ABECMA)pentamidi ne (NEBUPENT)SILtuxi mab iv piggyback in D5W (SYLVANT) Pgbktocilizumab iv piggyback in NaCl 0.9% 100 mL (ACTEMRA) Other Gracia Bruner MD 1 of 1 cycle started AMB/IP CAR T-CELL ABECMA 12/26/1909/26/2021 allopurinol (ZYLOPRIM)cycloph osphamide iv piggyback (CYTOXAN)fludarab ine iv piggyback (FLUDARA)idecabta gene vicleucel (ABECMA)tocilizum ab iv piggyback in NaCl 0.9% 100 mL (ACTEMRA) Other Gracia Bruner MD Treatment not started BMT NON-CHEMO Plan Name Start Date Discontinue Date Treatment Medications Discontinue Reason Plan Provider Cycles AMB CAR T CELL OUTPATIENT STANDARD ORDERS 01/11/20 22 01/14/2022 No medications scheduled. Treatment Complete Gracia Bruner MD 1 of 1 cycle started NON-CHEMO 1 Plan Name Start Date Discontinue Date Treatment Medications Discontinue Reason Plan Provider Cycles AMB IMMUNE GLOBULIN 0.4 D1 - Q28D 04/15/2022 06/11/2022 immune globulin (GAMMAGARD)imm une globulin iv infusion 10% (GAMMAGARD) Rm Olmos MD 2 of 6 cycles started BONE MODIFYING AGENT: $ - Q3 MONTHS IF CRCL IS GREATER THAN 30 ML/MIN 9 04/08/2022 zoledronic xw-fxovmgwt-7. 9NaCl (ZOMETA)zoledr onic acid (ZOMETA)zoledr onic acid iv piggyback (ZOMETA) Other Rm Tate MD 25 of 25 cycles started NON-CHEMO 2 Plan Name Start Date Discontinue Date Treatment Medications Discontinue Reason Plan Provider Cycles AMB APHERESIS CAR T-CELL 11/19/2021 08/30/2022 No medications scheduled. Other Sebastian Fitzpatrick MD 1 of 1 cycle started ONCOLOGY REGIMEN Plan Name Start Date Discontinue Date Treatment Medications Discontinue Reason Plan Provider Cycles AMB DARATUMUMAB HYALURONIDASE SC 1800 D1,8,15,22 THEN D1,15 THEN D1 CARFILZOMIB 20/ D1,8,15 - Q28D 04/02/19 22 01/03/2022 carfilzomib iv piggyback in D5W (KYPROLIS)daratumuma b 1,800 mg - hyaluronidase-fihj 30,000 units (DARZALEX FASPRO) Treatment Complete Rm Tate MD 9 of 12 cycles started AMB DARATUMUMAB HYALURONIDASE SC 1800 D1,8,15,22 THEN D1,15 THEN D1 CARFILZOMIB 20/56 D1,2,8,9,15,16 - Q28D 04/02/19 22 04/02/2021 carfilzomib iv piggyback in D5W (KYPROLIS)daratumuma b 1,800 mg - hyaluronidase-fihj 30,000 units (DARZALEX FASPRO) Other Rm Tate MD Treatment not started AMB CARFILZOMIB D1,2,8,9,15,16 CYCLOPHOSPHAMIDE 300 IV D1,8,15 - Q28D 022 04/02/2021 carfilzomib iv piggyback in D5W (KYPROLIS)cyclophosp hamide iv piggyback (CYTOXAN)palonosetro n (ALOXI) Rm Olmos MD 2 of 9 cycles started IP/AMB MULTIPLE MYELOMA VTD-PACE 021 02/26/2021 bortezomib ((VELCADE))bortezomi b (VELCADE)CISplatin etoposide cyclophosphamide iv piggyback or iv infusionDOXOrubicin iv infusion (ADRIAMYCIN)filgrast im (NEUPOGEN)fosaprepit ant (EMEND)pegfilgrastim (NEULASTA)thalidomid e (THALOMID) Treatment Complete Rm Tate MD 1 of 3 cycles started BELANTAMAB MAFODOTIN-BLMF 2.5 D1 - Q21D 202001/24/2021 belantamab mafodotin-blmf iv piggyback (BLENREP) Treatment Failure Rm Tate MD 3 of 6 cycles started BORTEZOMIB 1.3 D1,8,15,22 - Q28D 021 11/29/2020 bortezomib ((VELCADE))bortezomi b (VELCADE)palonosetro n (ALOXI) Treatment Failure Rm Tate MD 2 of 16 cycles started MELPHALAN FLUFENAMIDE 40 D1 - Q28D 021 09/12/2020 melphalan flufenamide iv piggyback in NaCl 0.9% (PEPAXTO)palonosetro n (ALOXI)pegfilgrastim (NEULASTA) Other Rm Tate MD Treatment not started CARFILZOMIB 70 D1,8,15 - Q28D 020 09/10/2020 carfilzomib iv piggyback in D5W (KYPROLIS) Treatment Failure Rm Tate MD 14 of 14 cycles started BORTEZOMB 1.3 D1,8,15-Q28D 201606/28/2018 bortezomib (VELCADE) 2.5 mg/mL SQ syringe Treatment Failure Alexys Faust 12 of 16 cycles started ONCOLOGY REGIMEN SECONDARY Plan Name Start Date Discontinue Date Treatment Medications Discontinue Reason Plan Provider Cycles AMB DARATUMUMAB HYALURONIDASE SC 1800 D1,8,15,22 THEN D1,15 THEN D1 Q28D 04/02/2021 04/02/2021 daratumumab 1,800 mg - hyaluronidase -[facility] 30,000 units (DARZALEX FASPRO) Other Rm Tate MD Treatment not started DARATUMUMAB 8 MG/KG D1,2 THEN 16 MG/KG D8,15,22 THEN D1,15 THEN D1 Q28D 0 12/02/2019 daratumumab iv piggyback (DARZALEX)mon telukast (SINGULAIR) Treatment Failure Rm Tate MD 5 of 12 cycles started Lifetime Dose Tracking * Chemical Lifetime Dose Automatic Entry Manual Entr y doxorubicin 39.505 mg/m2 (63.2 mg) 39.505 mg/m2 (63.2 mg) 0 mg/m2 (0 mg) Resolved Problems Problem Noted Date Diagnosed Date Resolved Date Neutropenic sepsis 12/31/2021 2 Overview (12/31/2021): See Neurotox & CRS Platelets decreased 01/29/2021 01/03/20 23 Overview (01/30/2021): 2/2 chemo, MM Plan - daily CBC with diff - transfuse for hgb <7 and plt <10; no transfusional requirements needed today Drug rash 02/02/2017 01/10/2022
--- OUTSIDE RECORDS SUMMARY | 2024-08-10 08:36 | XMS_ITS | Clinical Summary ---
Author Organization [facility] Address [address] [place] [address] Care Team Providers Care Media Services Specialist Name Role Phone Wong Javed DO Primary Care Provider [phone] Rm Tate MD Unavailable [phone] Gracia Bruner MD Unavailable France Boswell RN Unavailable Unavailable Allergies Active Allergy Reactions Criticality Noted Date Comments Zolpidem Tartrate Hives 11/14/2016 Diphenhydramine Hcl Intolerance 01/19/2017 Restless/tachycar dic Benadryl OK Clindamycin Hives 11/14/2016 Propoxyphene N-Acetaminophen Mental Status Change 11/14/2016 Linezolid Anaphylaxis 01/25/2018 Oxycodone-Acetaminophen Mental Status Change Lenalidomide Rash 02/09/2017 Sulfa (Sulfonamide Antibiotics) Intolerance 05/19/2012 Tramadol Intolerance 11/14/2016 Codeine Intolerance 11/14/2016 Medications * This document contains information received from the source organization and may not represent a complete record from that organization. clonazePAM (KLONOPIN) 0.5 mg tablet Take 0.5 mg by mouth twice daily. 7 Active levothyroxine (SYNTHROID) 25 mcg tablet Take 25 mcg by mouth once daily. 7 Active cyanocobalamin , vitamin B-12, 1,000 mcg/mL drop Take by mouth. Active sertraline (ZOLOFT) 100 mg tablet 100 mg. 0 Active Ascorbic Acid (VITAMIN C) 500 mg chew Take 500 mg by mouth once daily. Active gabapentin (NEURONTIN) 100 mg capsule Take 1 capsule by mouth once daily for 90 days. 90 capsule 5 025 Active pomalidomide (POMALYST) 4 mg capsule Take 1 capsule once daily for 21 days followed by 7 days off. 21 capsule 0 021 Discontinued gabapentin (NEURONTIN) 100 mg capsule TAKE 3 CAPSULES BY MOUTH ONCE DAILY AT BEDTIME 90 capsule 5 025 Discontinued Active Problems Patient Care Coordination No te Formatting of [...] Plan - Scheduled for neulasta 02/05 in [place] - orders per [facility] discharge follow-up 01/29/2021 Overview (02/01/2021): Will need Levaquin ppx neulasta ([place] 02/05) Day 8 velcade [place] 02/05 Remove PICC prior to d/c 2/weekly [...] Hypercalcemia 11/17/2016 Anemia 11/14/2016 Bone pain 11/14/2016 Resolved Problems Problem Noted Date Diagnosed Date Resolved Date Neutropenic sepsis 12/31/2021 2 Overview (12/31/2021): See Neurotox & CRS Platelets decreased 01/29/2021 01/03/20 23 Overview (01/30/2021): 2/2 chemo, MM Plan - daily CBC with diff - transfuse for hgb <7 and plt <10; no transfusional requirements needed today Drug rash 02/02/2017 01/10/2022 Encounters Date Type Department Care Team Description 08/01/2024 Refill [address]ematology [id number] [place] [address] [place] [address] Rm Tate MD Refill Request 07/08/2024 Telephone Hematology [address] [place] [id number] Leyla Blevins RN Results; Program Manager Slp - Other 07/07/2024 1:49 PM EDT - 07/07/2024 11:59 PM EDT Hospital Encounter Radiology Pet CT [address] [facility] [place] [address] Multiple myeloma not having achieved remission (HCC) [C90.00] Discharge Disposition: Home 06/30/2024 Telephone Hematology [id number] [place], [place] [address], [place] [address] Rm Tate MD 06/29/2024 4:15 PM EDT Visit (SP) Office Hematology [address] [place] [address] [place] [address] Rm Tate MD Multiple myeloma not having achieved remission (HCC) (Primary Dx); Lung crackles 06/29/2024 Travel 06/26/2024 Refill Hematology/Oncology [address] [facility] [facility] [place] [address] Rm Tate MD Refill Request 06/22/2024 Telephone Hematology [address] [place] [address] [place] [address] Rm Tate MD 06/19/2024 Refill Hematology/Oncology [address] [facility] [facility] [place] [address] Rm Tate MD Refill Request 06/18/2024 Results Follow-Up Hematology [id number] [place] [address] [place] [address] Rm Tate MD from Last 3 Months Immunizations Immunization Administration Dates Next Due COVID-19 original vaccine, b ooster dose, monovalent (MODERNA) 10/10/2020 COVID-19 original vaccine, f ull dose, monovalent (MODERNA) 12/01/2023,07/16/2021,03/18/2021,10/10,04/06/2020,03/10/2020 COVID-19 vaccine, age 12+ yr ([employer] COMIRNAT) 12/12/2022 COVID-19 vaccine, age 12+ yr , bivalent (MODERNA) 11/02/2021 COVID-19 vaccine, unspecifie d formulation 04/22/2020,03/26/2020 Haemophilus influenzae b (Hi b PRP-T) vaccine, 4-dose series (ACTHIB, HIBERIX) 11/25/2022,09/26/2022,07/26/2022 diphtheria tetanus pertussis (DTaP) vaccine, unspecified formulation 05/23/2016 hepatitis A-hepatitis B (Hep A-HepB) vaccine (TWINRIX) 12/26/2022,08/24/2022,06/24/2022 influenza (HD-IIV3) vaccine, age 65+ yr, high dose, trivalent, PF (FLUZONE HIGH-DOSE) 12/01/2023,11/25/2017,12/15/2016,12/05 influenza (HD-IIV4) vaccine, age 65+ yr, high dose, quadrivalent, PF (FLUZONE HIGH-DOSE) 12/05/2020,11/16/2019 influenza (aIIV4) vaccine, a ge 65+ yr, quadrivalent, PF (FLUAD QUAD) 12/12/2022 influenza vaccine, unspecifi ed formulation 11/25/2021,12/16/2018,12/08/2017,12/05,12/06/2014 pneumococcal conjugate (PCV) vaccine, unspecified formulation 12/15/2016 pneumococcal conjugate (PCV1 3) vaccine, 13 valent (PREVNAR 13) 04/05/2015 pneumococcal conjugate (PCV2 0) vaccine, 20 valent (PREVNAR 20) 06/24/2022 pneumococcal polysaccharide (PPV23) vaccine, 23 valent (PNEUMOVAX 23) 12/12/2013 poliovirus (IPV) vaccine, in activated (IPOL) 11/25/2022,09/26/2022,07/26/2022 tetanus diphtheria (Td) vacc ine, age 7+ yr, 2 Lf tetanus (TDVAX) 10/25/2022,08/24/2022 tetanus diphtheria (Td) vacc ine, age 7+ yr, 5 Lf tetanus, PF (TENIVAC) 12/12/2013,11/26/2012 tetanus diphtheria pertussis (Tdap) vaccine, age 7+ yr (ADACEL, BOOSTRIX) 06/24/2022,05/23/2016 zoster (RZV) vaccine, recomb inant (SHINGRIX) 12/26/2022,11/07/2022,09/07/2021,03/06 zoster (ZVL) vaccine, live (ZOSTAVAX) 03/06/2021 ,06/07/2014 Family History Medical History Relation Comments Hip Surgery Brother 1 Knee surgery Brother 1 legally blind Brother 1 Abdominal hernia Brother 2 Kidney stones Daughter 1 No Known Problems Daughter 2 Arthritis Father Heart disease Father Diabetes Maternal Grandmother Hypothyroidism Mother Stroke Mother Diabetes Paternal Grandmother Relation Status Comments Brother 1 Brother 2 Daughter 1 Alive Daughter 2 Alive Father Maternal Grandmother Mother Paternal Grandmother Social History Tobacco Use Types Packs/Day Years Used Date Smoking Tobacco: Never Passive Smoke Exposure: Past Smokeless Tobacco: Never Tobacco Cessation:Counseling Given: Not Answered Alcohol Use Standard Drinks/Week Comments Yes 0 (1 standard drink = 0.6 oz pur e alcohol) socially PHQ-2 Answer Date Recorded PHQ-2 score 0 06/29/2024 Area Deprivation Index Answer Date Bryan rded National Score (1-100), lower number is lower ri sk Not on file 01/28/2020 State Score (1-10), lower number is lower risk N ot on file 01/28/2020 Data from: https://www.neighborhoodatlas.medicine.[facility].edu/. 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[employer] Not on file Not on file Not on file Last Filed Vital Signs Vital Sign Reading Time Taken Comments Blood Pressure 108/57 06/29/2024 4:04 PM EDT Pulse 85 06/29/2024 4:04 PM EDT Temperature 36.3 C (97.4 F) 06/29/2024 4:04 PM EDT Respiratory Rate 18 03/09/2024 9:32 AM EST Oxygen Saturation 97% 06/29/2024 4:04 PM EDT Inhaled Oxygen Concentration - - Weight 60.2 kg (132 lb 13.2 oz) 06/29/2024 4:04 PM EDT Height 153.5 cm (5' 0.43 ) 03/09/2024 9:32 AM ES T Body Mass Index 25.57 03/09/2024 9:32 AM EST Plan of Treatment Upcoming Encounters Date Type Department Care Team (Latest Contact Info) Description 09/30/2024 9:45 AM EDT Visit (SP) Office Hematology [address] [place] [address] Rm Tate MD [address] [place], [place] [id number] Schedule OV with Dr. Tate 09/29/24, labs 1 week prior Health Maintenance Due Date Last Done Comments Cervical Cancer Screening 1959 Annual PCP Team Chronic Dise ase Visit 1966 Depression Screening 1966 Medicare Annual Wellness Visit 03/26/2013 Bone Density Screening 2013 RSV Vaccine (1 - 1-dose 75+ series) 2023 Covid-19 Vaccine ( season) 2024 12/01/2023, 12/12/2022, 11/02/2021, Additional history exists Advance Directive Discussion 02/24/2024 Diabetes Screening 06/16/2027 06/15/2024, 0 03/01/2024, 01/06/2024, Additional history exists DTaP,Tdap,Td Vaccine (6 - Td or Tdap) 10/25/2032 10/25/2022, 08/24/2022, 06/24/2022, Additional history exists Hepatitis C Screening Completed 12/03/2021 , 12/03/2021, 04/02/2021 Pneumococcal Vaccine: 50+ Completed 2022, 12/15/2016, 04/05/2015, Additional history exists Influenza Vaccine Completed 12/01/2023, , 11/25/2021, Additional history exists Shingrix Vaccine Completed 01/25/2024, 04/2022, 11/07/2022, Additional history exists Procedures Procedure Name Priority Date/Time Associated Diagnosis Comments CT CHEST WO IVCON Routine 07/07/2024 2:4 6 PM EDT Multiple myeloma not having achieved remission (HCC) Lung crackles PROTEIN ELECTROPHORESIS SERUM (P) Routine 06/15/2024 10:29 AM EDT Multiple myeloma not having achieved remission (HCC) PROTEIN TOTAL BLD Routine 06/15/2024 10: 29 AM EDT Multiple myeloma not having achieved remission (HCC) KAPPA/CASAREZ,FREE,SER Routine 06/15/2024 1 0:29 AM EDT Multiple myeloma not having achieved remission (HCC) IMMUNOFIXATION SCREEN, SERUM Routine 06/15/2024 10:29 AM EDT Multiple myeloma not having achieved remission (HCC) IMMUNOGLOBULINS PREM Routine 06/15/2024 1 0:29 AM EDT Multiple myeloma not having achieved remission (HCC) CD4 ABSOLUTE COUNT Routine 06/15/2024 10 :29 AM EDT Multiple myeloma not having achieved remission (HCC) PROTEIN ELECTROPHORESIS SERUM W/INTERP Routine 06/15/2024 10:29 AM EDT Multiple myeloma not having achieved remission (HCC) MONOCLONAL PROTEIN, SERUM (BLOOD) Routine 06/15/2024 10:29 AM EDT Multiple myeloma not having achieved remission (HCC) COMPREHENSIVE METABOLIC PANEL Routine 06/15/2024 10:29 AM EDT Multiple myeloma not having achieved remission (HCC) CBC + DIFF Routine 06/15/2024 10:29 AM EDT Multiple myeloma not having achieved remission (HCC) HEPATITIS C ANTIBODY IA WITH CONFIRMATION Routine 12/03/2021 2:27 PM EDT Multiple myeloma, remission status unspecified (HCC) from Last 3 Months or Most Recently Relevant to Health Maintenance Results * CT CHEST WO IVCON (07/07/2024 2:46 PM EDT) Anatomical Region Laterality Modality Chest Nuclear Medicine , Nuclear Medicine 07/07/2024 2:46 PM EDT Impressions 07/08/2024 12:14 PM EDT IMPRESSION: 1. Several bilateral scattered sclerotic foci involving several bilateral ribs and sternum, stable in appearance from prior PET/CT examination of 09/02/2023, as above. 2. No suspicious enlarging pulmonary nodule or substantial intrathoracic adenopathy. 3. Evidence for prior granulomatous disease. Transcribe Date/Time: Jul 08 2024 8:59A Dictated by: CHRISTA MONGE MD This examination was interpreted and the report reviewed and electronically signed by: CHRISTA MONGE MD on Jul 08 2024 12:12PM EST Thank you for allowing us to participate in the care of your patient. Should there be any questions regarding this interpretation, please call [phone]. If you are unable to reach us at the number above, please feel free to contact [facility] at [phone]. Narrative 07/08/2024 12:14 PM EDT * * *Final Report* * * DATE OF EXAM: Jul 07 2024 2:46PM [facility] [id number] - CT CHEST WO IVCON / PROCEDURE REASON: multiple diagnoses * * * * Physician Interpretation * * * * RESULT: EXAMINATION: CHEST CT WITHOUT CONTRAST CLINICAL HISTORY: Multiple myeloma Technique: Spiral CT acquisition of the chest from the thoracic inlet to the upper abdomen without contrast. MQ: CTCWOR_4 CT Dose-Length Product: 185 mGy*cm CT Dose Reduction Employed: Automated exposure control (AEC) Comparison: PET/CT 09/02/2023 RESULT: Limitations: None. Lines, tubes, and devices: None. Lung parenchyma , airways, and pleural space: No consolidative process or pleural effusion. The trachea and major airways appear patent. Scattered bilateral calcified granulomata are identified. No suspicious enlarging nodule is appreciated. Lower neck, lymph nodes, and mediastinum: The visualized thyroid gland is stable. No substantial supraclavicular or axillary lymphadenopathy is identified. Subcentimeter mediastinal lymph nodes are identified, none of which appear pathologically enlarged. No substantial mediastinal or hilar adenopathy is identified. Left hilar granulomatous calcification is again appreciated. Heart, pericardium, and thoracic vessels: The thoracic aorta is normal in caliber. No substantial pericardial effusion is appreciated. Bones/Soft Tissues: Moderate degenerative change within the thoracic spine is appreciated. Vertebroplasty changes at the lower thoracic spine, moderate compression deformities of several mid thoracic vertebral bodies, stable. Scattered sclerotic foci are appreciated involving several bilateral ribs and sternum, unchanged. Healed fracture at the posterior aspect of the 8th rib 8th through 10th ribs are again appreciated. Upper Abdomen: Limited unenhanced images through the upper abdomen are stable. Assistant Project Engineer (topogram) images: No additional findings. Procedure Note Provider, [facility] [place] - 07/08/2024 * * *Final Report* * * DATE OF EXAM: Jul 07 2024 2:46PM [facility] 0541 - CT CHEST WO IVCON / PROCEDURE REASON: multiple diagnoses * * * * Physician Interpretation * * * * RESULT: EXAMINATION: CHEST CT WITHOUT CONTRAST CLINICAL HISTORY: Multiple myeloma Technique: Spiral CT acquisition of the chest from the thoracic inlet to the upper abdomen without contrast. MQ: CTCWOR_4 CT Dose-Length Product: 185 mGy*cm CT Dose Reduction Employed: Automated exposure control (AEC) Comparison: PET/CT 09/02/2023 RESULT: Limitations: None. Lines, tubes, and devices: None. Lung parenchyma , airways, and pleural space: No consolidative process or pleural effusion. The trachea and major airways appear patent. Scattered bilateral calcified granulomata are identified. No suspicious enlarging nodule is appreciated. Lower neck, lymph nodes, and mediastinum: The visualized thyroid gland is stable. No substantial supraclavicular or axillary lymphadenopathy is identified. Subcentimeter mediastinal lymph nodes are identified, none of which appear pathologically enlarged. No substantial mediastinal or hilar adenopathy is identified. Left hilar granulomatous calcification is again appreciated. Heart, pericardium, and thoracic vessels: The thoracic aorta is normal in caliber. No substantial pericardial effusion is appreciated. Bones/Soft Tissues: Moderate degenerative change within the thoracic spine is appreciated. Vertebroplasty changes at the lower thoracic spine, moderate compression deformities of several mid thoracic vertebral bodies, stable. Scattered sclerotic foci are appreciated involving several bilateral ribs and sternum, unchanged. Healed fracture at the posterior aspect of the 8th rib 8th through 10th ribs are again appreciated. Upper Abdomen: Limited unenhanced images through the upper abdomen are stable. Assistant Project Engineer (topogram) images: No additional findings. IMPRESSION IMPRESSION: 1. Several bilateral scattered sclerotic foci involving several bilateral ribs and sternum, stable in appearance from prior PET/CT examination of 09/02/2023, as above. 2. No suspicious enlarging pulmonary nodule or substantial intrathoracic adenopathy. 3. Evidence for prior granulomatous disease. Transcribe Date/Time: Jul 08 2024 8:59A Dictated by: CHRISTA MONGE MD This examination was interpreted and the report reviewed and electronically signed by: CHRISTA MONGE MD on Jul 08 2024 12:12PM EST Thank you for allowing us to participate in the care of your patient. Should there be any questions regarding this interpretation, please call [phone]. If you are unable to reach us at the number above, please feel free to contact [facility] at [phone]. us Rm Tate MD CT-PAMA Final Result * IMMUNOFIXATION SCREEN, SERUM (06/15/2024 10:29 AM EDT) MPA Result No M protein is identified. No M protein is identified. 06/17/2024 9:42 AM EDT [facility] Staff Review (MPA) Reviewed by Rosangela Zuniga MD 06/17/2024 9:42 AM EDT [facility] Blood BLOOD SPECIMEN / Unknown Venipuncture / Unknown 06/15/2024 10:29 AM EDT 06/15/2024 10:29 AM EDT us Rm Tate MD LABORATORY Final Result [facility] [address] [facility] [address] [address] [place] [address], [place] * PROTEIN ELECTROPHORESIS SERUM (P) (06/15/2024 10:29 AM EDT) Albumin for SPE 4.20 3.43 - 5.41 g/dL 06/17/2024 7:53 AM EDT [facility] Alpha 1 Globulin 0.32 0.18 - 0.43 g/dL 06/17/2024 7:53 AM EDT [facility] Alpha 2 Globulin 0.63 0.42 - 0.98 g/dL 06/17/2024 7:53 AM EDT [facility] Beta Globulin 0.67 0.61 - 1.17 g/dL 06/17/2024 7:53 AM EDT [facility] Gamma Globulin 0.58 0.53 - 1.51 g/dL 06/17/2024 7:53 AM EDT [facility] Interpretation (Prot Electro) No definitive M protein is identified on protein electrophores is. No definitive M protein is identified on protein electrophores is. 06/17/2024 7:53 AM EDT [facility] M-Protein Location 06/17/2024 7:53 AM EDT [facility] Comment:Not Applicable. M-Protein Concentration 0.00 <=0.00 g/dL 06/17/2024 7:53 AM EDT [facility] SPE Staff Review Reviewed by Rosangela Zuniga MD 06/17/2024 7:53 AM EDT [facility] Blood BLOOD SPECIMEN / Unknown Venipuncture / Unknown 06/15/2024 10:29 AM EDT 06/15/2024 10:29 AM EDT Narrative [facility] - 06/17/2024 7:53 AM EDT Serum electrophoresis test was performed using the Fonix V8 NEXUS capillary electrophoresis method. Results obtained with different assay methods or kits cannot be used interchangeably. us Rm Tate MD LABORATORY Final Result [facility] [address] [place] [address], [place] * KAPPA/CASAREZ,FREE,SER (06/15/2024 10:29 AM EDT) [place] Free, Serum 8.5 3.3 - 19.4 mg/L 06/16/2024 2:45 PM EDT [facility] Comment: Rarely, increased serum free light chains levels may not be detected or accurately quantified due to prozone phenomenon or in high viscosity samples using this immunoturbidimetric assay. Correlation with other laboratory results and clinical findings is recommended. The [place] Free Light Chain was performed using the Binding Site Optilite immunoturbidimetric method. Result obtained with different assay methods or kits cannot be used interchangeably. Lambda Free, Serum 10.6 5.7 - 26.3 mg/L 06/16/2024 2:45 PM EDT [facility] Comment: Rarely, increased serum free light chains levels may not be detected or accurately quantified due to prozone phenomenon or in high viscosity samples using this immunoturbidimetric assay. Correlation with other laboratory results and clinical findings is recommended. The Lambda Free Light Chain was performed using the Binding Site Optilite immunoturbidimetric method. Result obtained with different assay methods or kits cannot be used interchangeably. K/L Ratio, Serum 0.80 0.26 - 1.65 06/16/2024 2:45 PM EDT [facility] Blood BLOOD SPECIMEN / Unknown Venipuncture / Unknown 06/15/2024 10:29 AM EDT 06/15/2024 10:29 AM EDT us Rm Tate MD LABORATORY Final Result [facility] [address] [facility] [address] [address], [place] * (ABNORMAL) CD4 ABSOLUTE COUNT (06/15/2024 10:29 AM EDT) CD3+ T Cell % 69 60 - 89 % 06/16/2024 3:11 PM EDT [facility] CD3+ T Cell # 853(L) 958 - 2,388 cells/uL 06/16/2024 3:11 PM EDT [facility] CD3+CD4+ T Cell % 19(L) 34 - 61 % 06/16/2024 3:11 PM EDT [facility] CD3+CD4+ T Cell # 237(L) 533 - 1,674 cells/uL 06/16/2024 3:11 PM EDT [facility] Blood BLOOD SPECIMEN / Unknown Venipuncture / Unknown 06/15/2024 10:29 AM EDT 06/15/2024 10:29 AM EDT Narrative [facility] - 06/16/2024 3:11 PM EDT Clinical interpretation of lymphocyte subsets must be made with caution. Relative and absolute values may be profoundly affected by immunosuppressive or cytotoxic therapy, and be abnormal in a wide variety of infectious, inflammatory, autoimmune and neoplastic disorders. The following number of cluster designated antibodies were used for the definition of the above reported populations: CD3 and CD4. (CD45 used for gating.) This test was developed and its performance characteristics determined by [facility] [place] ([facility]). It has not been cleared or approved by the FDA. [facility] is regulated under CLIA as qualified to perform high-complexity testing. This test is used for clinical purposes. It should not be regarded as investigational or for research. us Rm Tate MD LABORATORY Final Result [facility] [address] [facility] [address] [address], * PROTEIN, TOTAL (06/15/2024 10:29 AM EDT) [facility] Protein, Total 6.4 6.3 - 8.0 g/dL 06/15/2024 6:54 PM EDT [facility] Blood BLOOD SPECIMEN / Unknown Venipuncture / Unknown 06/15/2024 10:29 AM EDT 06/15/2024 10:29 AM EDT us Rm Tate MD LABORATORY Final Result Performing Organization Address [facility]/ZIP Co de Phone Number [facility] [address] [place] [address], [place] * (ABNORMAL) IMMUNOGLOBULINS,IGG,IGA,IGM (06/15/2024 10:29 AM EDT) IgG 694(L) 700 - 1,600 mg/dL 06/15/2024 8:39 PM EDT [facility] IgA 92 70 - 400 mg/dL 06/15/2024 8:39 PM EDT [facility] IgM 118 40 - 230 mg/dL 06/15/2024 8:39 PM EDT [facility] Blood BLOOD SPECIMEN / Unknown Venipuncture / Unknown 06/15/2024 10:29 AM EDT 06/15/2024 10:29 AM EDT us Rm Tate MD LABORATORY Final Result Performing Organization Address City/[facility]/ZIP Co de Phone Number [facility] [address] [place] [address], [place] * (ABNORMAL) COMPREHENSIVE METABOLIC PANEL (06/15/2024 10:29 AM EDT) Protein, Total 6.7 6.3 - 8.0 g/dL 06/15/2024 11:12 AM EDT [facility] Albumin 4.3 3.9 - 4.9 g/dL 06/15/2024 11:12 AM EDT [facility] Calcium, Total 10.1 8.5 - 10.2 mg/dL 06/15/2024 11:12 AM EDT [facility] Bilirubin, Total 0.5 0.2 - 1.3 mg/dL 06/15/2024 11:12 AM EDT [facility] Alkaline Phosphatase 93 34 - 123 U/L 06/15/2024 11:12 AM T [facility] AST 19 13 - 35 U/L 06/15/2024 11:12 AM [facility] ALT 10 7 - 38 U/L 06/15/2024 11:12 AM [facility] Glucose 95 74 - 99 mg/dL 06/15/2024 11:12 AM [facility] Comment: The [place] [employer] (ADA) provides guidance for cutoff values for fasting glucose and random glucose. The ADA defines fasting as no caloric intake for at least 8 hours. Fasting plasma glucose results between 100 to 125 mg/dL indicate increased risk for diabetes (prediabetes). Fasting plasma glucose results greater than or equal to 126 mg/dL meet the criteria for diagnosis of diabetes. In the absence of unequivocal hyperglycemia, results should be confirmed by repeat testing. In a patient with classic symptoms of hyperglycemia or hyperglycemic crisis, random plasma glucose results greater than or equal to 200 mg/dL meet the criteria for diagnosis of diabetes. Reference: Standards of Medical Care in Diabetes 2016, [place] [employer]. Diabetes Care. 2016.39(Suppl 1). BUN 12 7 - 21 mg/dL 06/15/2024 11:12 AM [facility] Creatinine 0.80 0.58 - 0.96 mg/dL 06/15/2024 11:12 AM [facility] Sodium 139 136 - 144 mmol/L 06/15/2024 11:12 AM [facility] Potassium 3.5(L) 3.7 - 5.1 mmol/L 06/15/2024 11:12 AM [facility] Chloride 98 98 - 107 mmol/L 06/15/2024 11:12 AM [facility] CO2 31(H) 22 - 30 mmol/L 06/15/2024 11:12 AM [facility] Anion Gap 10 8 - 15 mmol/L 06/15/2024 11:12 AM [facility] Estimated Glomerular Filtration Rate 76 >=60 mL/min/1. 73m 06/15/2024 11:12 AM EDT [facility] Comment:Estimated Glomerular Filtration Rate (eGFR) is calculated using the 2020 CKD-EPI creatinine equation. This equation utilizes serum creatinine, sex, and age as parameters. The creatinine assay has traceable calibration to isotope dilution- mass spectrometry. Refer to KDIGO guidelines for clinical interpretation. In patients with unstable renal function, e.g. those with acute kidney injury, the eGFR may not accurately reflect actual GFR. Blood BLOOD SPECIMEN / Unknown Venipuncture / Unknown 06/15/2024 10:29 AM EDT 06/15/2024 10:29 AM EDT us Rm Tate MD LABORATORY Final Result [facility] [address] [place] [address] * (ABNORMAL) COMPLETE BLOOD COUNT AND DIFFERENTIAL (06/15/2024 10:29 AM EDT) WBC 5.03 3.70 - 11.00 k/uL 06/15/2024 10:42 AM EDT [facility] RBC 4.14 3.90 - 5.20 m/uL 06/15/2024 10:42 AM EDT [facility] Hemoglobin 12.8 11.5 - 15.5 g/dL 06/15/2024 10:42 AM EDT [facility] Hematocrit 38.3 36.0 - 46.0 % 06/15/2024 10:42 AM EDT [facility] MCV 92.5 80.0 - 100.0 fL 06/15/2024 10:42 AM EDT [facility] MCH 30.9 26.0 - 34.0 pg 06/15/2024 10:42 AM EDT [facility] MCHC 33.4 30.5 - 36.0 g/dL 06/15/2024 10:42 AM EDT [facility] RDW-CV 12.9 11.5 - 15.0 % 06/15/2024 10:42 AM EDT [facility] Platelet Count 149(L) 150 - 400 k/uL 06/15/2024 10:42 AM EDT [facility] MPV 9.3 9.0 - 12.7 fL 06/15/2024 10:42 AM EDT [facility] Neutrophils % 63.4 % 06/15/2024 10:42 AM EDT [facility] Abs Neut 3.19 1.45 - 7.50 k/uL 06/15/2024 10:42 AM EDT [facility] Lymphocytes % 25.0 % 06/15/2024 10:42 AM EDT [facility] Abs Lymph 1.26 1.00 - 4.00 k/uL 06/15/2024 10:42 AM EDT [facility] Monocytes % 7.4 % 06/15/2024 10:42 AM EDT [facility] Abs [place] 0.37 <0.87 k/uL 06/15/2024 10:42 AM EDT [facility] Eosinophils % 3.2 % 06/15/2024 10:42 AM EDT [facility] Abs Eosin 0.16 <0.46 k/uL 06/15/2024 10:42 AM EDT [facility] Basophils % 0.6 % 06/15/2024 10:42 AM EDT [facility] Abs Baso 0.03 <0.11 k/uL 06/15/2024 10:42 AM EDT [facility] Immature Granulocytes % 0.4 % 06/15/2024 10:42 AM EDT [facility] Abs Immature Gran <0.03 <0.10 k/uL 025 10:42 AM EDT [facility] NRBC 0.0 /100 WBC 06/15/2024 10:42 AM EDT [facility] Absolute nRBC <0.01 <0.01 k/uL 06/15/2024 10:42 AM EDT [facility] Diff Type Auto 06/15/2024 10:42 AM EDT [facility] Blood BLOOD SPECIMEN / Unknown Venipuncture / Unknown 06/15/2024 10:29 AM EDT 06/15/2024 10:29 AM EDT Rm Tate MD LABORATORY Final Result [facility] [address] [place] [address] * HEP C AB IA W/CONF SCRN (12/03/2021 2:27 PM EDT) [facility] Hep C Antibody IA Negative Negative 12/04/2021 10:17 AM EDT [facility] Comment:The result suggests no evidence of active infection with Hepatitis C virus. Should recent infection be suspected, repeat testing may be considered 4-6 weeks after this draw. 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 Advance Directive(s) 10/15/2021 Advance Directives * Full Code (Latest Code Status on File) Date Activated Date Inactivated Comments 01/02/2022 2:42 PM 01/06/2022 5:21 PM Question Answer Comments Full Code Order Discussed With: Patient * DNR-CCA Date Activated Date Inactivated Comments 01/29/2021 4:04 PM 02/03/2021 5:19 PM Question Answer Comments DNR Order Discussed With: Patient and Decision S urrogate Maker Care Teams Media Services Specialist Relationship Specialty Start Date End Date Wong Javed DO [address] [place] [address] PCP - General Internal Medicine 11/04/16 Rm Tate MD [address] [place] [address] Physician Hematology/Oncology 03/01/19 [place] [address] [place] [address] Physician Blood and Marrow Transplant 09/17/21 France Boswell, HAMZAH Specialty Program Manager Slp Hematology/Oncology 10/22/23 Dr Hailee Cartagena [address] [place] [address] Physician Oncology 03/05/23
--- OUTSIDE RECORDS SUMMARY | 2024-08-10 08:37 | XMS_ITS | Encounter Summary ---
Author Organization [facility] Address [address] [place] [id number] Care Team Providers Care Bed And Breakfast Innkeeper Name Role Phone Wong Javed Primary Care Provider [phone] Verónica Shepard RN Unavailable [phone] Rm Tate MD Unavailable [phone] Mary Bear PA-C Unavailable [phone] Gracia Bruner MD Unavailable Dorinda Daly RN Unavailable [phone] Tahira Carrillo Unavailable [phone] France Boswell RN Unavailable Unavailable Source Comments In the event this information is protected by the Federal Confidentiality of Alcohol and Drug AbusePatient Records regulations: The Federal rules restrict any use of the information to criminally investigate or prosecute any alcohol or drug abuse patient.[facility] Encounter Details Date Type Department Care Team (Latest Contact Info) Description 09/21/2020 H&P External-NonCCF Provider, GELACIO Zhang Do not [...] N ot on file 01/28/2020 Data from: [email or web address].[email or web address].[email or web address].[email or web address] Last address used for calculation Not on file 01/28/2020 Comments No Sex and Gender Information Value Date Recorded Sex Assigned at Female 10/07/2021 9:30 AM EDT Legal Sex Female 9:02 AM EDT Gender Identity Female 10/07/2021 9:30 AM EDT Sexual Orientation Straight 10/07/2021 9: 30 AM EDT Occupation Industry Job Start Date Job End Date [employer] Not on file Not on file Not on file COVID-19 Exposure Response Date Recorded In the last month, have you been in contact with someone who was confirmed or suspected to have Coronavirus / COVID-19? No / Unsure 09/21/2020 9:19 AM EDT documented as of this encounter Plan of Treatment Upcoming Encounters Date Type Department Care Team (Latest Contact Info) Description 09/30/2024 9:45 AM EDT Visit (SP) Office Hematology [address] [place] [address] Rm Tate MD [address] [place] [address] [address] [address] Tate 09/29/24, labs 1 week prior documented as of this encounter Visit Diagnoses Not on filedocumented in this encounter Additional Health Concerns Infection Onset Date Last Indicated Resolved Time COVID-19 Rule-Out 01/29/2021 01/28/2021 02/18/2021 8:51 PM EST COVID-19 Rule-Out 12/30/2021 12/30/2021 12/30/2021 4:25 PM EST documented as of this encounter Care Teams Bed And Breakfast Innkeeper Relationship Specialty Start Date End Date Wong Javed DO [address] [place] [address] PCP - General Internal Medicine 11/04/16 Verónica Shepard, RN [address] [place] [address] [place] [address] Specialty Potato Spotter Hematology/Oncology 02/04/17 09/15/23 Rm Tate MD [address] [place] [address] [place] [address] Physician Hematology/Oncology 03/01/19 Mary Bear, PAStacyC [address] [place] [address] [place] [address] Physician Patient Relations Coordinator Hematology/Oncology 03/01/19 [place] [address] [place] [address] Physician Blood and Marrow Transplant 09/17/21 Dorinda Daly, HAMZAH [address] [place] [address] Specialty Potato Spotter Blood and Marrow Transplant 09/17/21 04/03/22 Tahira Carrillo LISW [address] [place], [place] [id number] Utility Worker [place] Blood and Marrow Transplant 10/09/21 05/28/22 France Boswell, HAMZAH Specialty Potato Spotter Hematology/Oncology 10/22/23 Dr Hailee Cartagena [address] [address] Physician Oncology 03/05/23 documented as of this encounter
--- OUTSIDE RECORDS SUMMARY | 2024-08-10 08:37 | XMS_ITS | Data Portability ---
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 Phone WONG JAVED Primary Care Provider Assessment Encounter Date Assessment Date Assessment LastModified by Organization Details LastModified Time 04/01/2023 04/01/2023 ASSESSMENT -urinary frequency, urgency, dysuria X1 days -denies fever, N/V, or abdominal pain PLAN -RX: macrobid -Lab: urine culture DIAGNOSIS [email or web address] Not available 04/01/2023 10:43:53 04/30/2023 04/30/2023 ASSESSMENT -patient walk-in URGENT CARE VISIT evaluation for upper respiratory symptoms -reports nasal drainage, dry cough x 1 day -denies SOB, wheezing, or CP PLAN -rest, fluids, warm tea, tylenol prn -CoVid 19 (PCR) reflex to rpp done -rx: benzonatate, ipratropium -fu: pcp DIAGNOSIS [email or web address] Not available 04/30/2023 14:24:46 05/24/2024 05/24/2024 ASSESSMENT -patient walk-in URGENT CARE VISIT evaluation for nausea and diarrhea x 3 days -reports symptoms initially began as uri symptoms PLAN -rx: Zofran -fu: pcp Wong Javed DIAGNOSIS Not available 05/24/2024 14:25:39 Plan of Treatment Reminders Order Date Submit Date Provider Last Modified By Organization Details Last Modified Time Details Appointments None recorded. Lab culture, urine 2023 024 [facility], [address] [place] [address], [id number], 07:35:45 SARS CoV 2 RNA, QL, nasopharynx 2023 024 YASH[facility], [address], [place], [address], 09:36:28 culture, urine 2023 024 [facility], [address] , [place], [address], 11:02:59 Referral urologist referral 2023 024 [email or web address] Not available 13:17:29 Procedures None recorded. Surgeries None recorded. Imaging None recorded. Medication Orders ondansetron 4 mg disintegrat ing tablet 2024 025 [facility] [address] [place], [address], 5 13:31:38 Macrobid 100 mg capsule 2023 025 [facility] [address] [place], [address], 5 13:14:00 doxycycline hyclate 100 mg capsule 2023 024 [facility] [address] [place], [address], 4 09:28:08 Medrol (Collin) 4 mg tablets in a dose pack 2023 024 [facility] [address] [place], [address], 4 09:28:11 Claritin 10 mg tablet 2023 024 [facility] [address] [place], [address], 09:33:12 azelastine 137 mcg (0.1 %) nasal spray 2023 024 [facility] [address] [place], [address], 4 09:33:52 benzonatate 200 mg capsule 2023 [facility] [address] [place], [address], 4 15:32:20 ipratropium bromide 42 mcg (0.06 %) nasal spray 2023 [facility] [address] [place], [address], 4 15:32:18 Macrobid 100 mg capsule 2023 024 [email or web address] 3 [facility] [address] [place], [address], 5 13:13:53 Patient TargetsNo targets recorded. Patient Instructions Encounter Date Encounter Id Patient Instructions Last Modified By Organization Details Last Modified Time 04/01/2023 [id number] URINARY TRACT INFECTION A urinary tract infection, or UTI, is a general term for an infection anywhere between the kidneys and the urethra (where urine comes out). Most UTIs are bladder infections. They often cause pain or burning when you urinate. UTIs are caused by bacteria and can be cured with antibiotics. Be sure to complete your treatment so that the infection goes away. Follow-up care is a mckeon part of your treatment and safety. TODAY, we obtained your URINE and it was SENT for a URINE CULTURE. Please BE SURE to return and / or call if you SYMPTOMS DO NOT IMPROVE. It's also a good idea to know your test results and keep a list of the medicines you take. How can you care for yourself at home? Take your antibiotics as directed. Do not stop taking them just because you feel better. You need to take the full course of antibiotics. Drink extra water and other fluids for the next day or two. This may help wash out the bacteria that are causing the infection. (If you have kidney, heart, or liver disease and have to limit fluids, talk with your doctor before you increase your fluid intake.) Avoid drinks that are carbonated or have caffeine. They can irritate the bladder. Urinate often. Try to empty your bladder each time. To relieve pain, take a hot bath or lay a heating pad set on low over your lower belly or genital area. Never go to sleep with a heating pad in place. TO PROVENT UTIs Drink plenty of water each day. This helps you urinate often, which clears bacteria from your system. (If you have kidney, heart, or liver disease and have to limit fluids, talk with your doctor before you increase your fluid intake.) Urinate when you need to. Urinate right after you have sex. Change sanitary pads often. Avoid douches, bubble baths, feminine hygiene sprays, and other feminine hygiene products that have deodorants. After you use the toilet, wipe from front to back. When should you call for help: Return to our office or seek immediate medical care if: Symptoms such as fever, chills, nausea, or vomiting get worse or appear for the first time. You have new pain in your back just below your rib cage. This is called flank pain. There is new blood or pus in your urine. You have any problems with your antibiotic medicine. Watch closely for changes in your health, and be sure to contact your doctor or nurse call line if: You do not feel better after 2 days on an antibiotic. Your symptoms go away but then come back. Not available 04/01/2023 10:09:09 1. Patient to follow up with PRIMARY CARE and or here if the symptoms do not improve. 2. Patient directed to RETURN ANYTIME if have question/concern. 3. Patient instructed that [facility] PRIMARY CARE IS OPEN EVERY DAY, EVERY HOLIDAY, AND EVERY WEEKEND FROM 8 AM to 8 PM - [phone] extension 1 4. Patient directed to CALL 911/and/or GO IMMEDIATELY to the emergency dept if symptoms worsen. Not available 04/01/2023 10:09:09 04/30/2023 [id number] Viral Respirator y Infection: Care Instructions Viruses are very small organisms. They grow in number after they enter your body. There are many types that cause different illnesses, such as colds and the mumps. The symptoms of a viral respiratory infection often start quickly. They include a fever, sore throat, and runny nose. You may also just not feel well. Or you may not want to eat much. Most viral respiratory infections are not serious. They usually get better with time and self-care. Antibiotics are not used to treat a viral infection. That's because antibiotics will not help cure a viral illness. In some cases, antiviral medicine can help your body fight a serious viral infection. Follow-up care is a mckeon part of your treatment and safety. Be sure to make and go to all appointments, and call your doctor if you are having problems. It's also a good idea to know your test results and keep a list of the medicines you take. How can you care for yourself at home? Rest as much as possible until you feel better. Be safe with medicines. Take your medicine exactly as prescribed. Call your doctor if you think you are having a problem with your medicine. You will get more details on the specific medicine your doctor prescribes. Take an vkbc-kry-hgcgywz pain medicine, such as acetaminophen (Tylenol), ibuprofen (Advil, Motrin), or naproxen (Aleve), as needed for pain and fever. Read and follow all instructions on the label. Do not give aspirin to anyone younger than 20. It has been linked to Stiven syndrome, a serious illness. Drink plenty of fluids, enough so that your urine is light yellow or clear like water. Hot fluids, such as tea or soup, may help relieve congestion in your nose and throat. If you have kidney, heart, or liver disease and have to limit fluids, talk with your doctor before you increase the amount of fluids you drink. Try to clear mucus from your lungs by breathing deeply and coughing. Gargle with warm salt water once an hour. This can help reduce swelling and throat pain. Use 1 teaspoon of salt mixed in 1 cup of warm water. Do not smoke or allow others to smoke around you. If you need help quitting, talk to your doctor about stop-smoking programs and medicines. These can increase your chances of quitting for good. To avoid spreading the virus Cough or sneeze into a tissue. Then throw the tissue away. If you don't have a tissue, use your hand to cover your cough or sneeze. Then clean your hand. You can also cough into your sleeve. Wash your hands often. Use soap and warm water. Wash for 15 to 20 seconds each time. If you don't have soap and water near you, you can clean your hands with alcohol wipes or gel. When should you call for help? Call your doctor now or seek immediate medical care if: You have a new or higher fever. Your fever lasts more than 48 hours. You have trouble breathing. You have a fever with a stiff neck or a severe headache. You are sensitive to light. You feel very sleepy or confused. Watch closely for changes in your health, and be sure to contact your doctor if: You do not get better as expected. [email or web address] Not available 04/30/2023 14:15:23 1. Patient to follow up with PRIMARY CARE and or here if the symptoms do not improve. 2. Patient directed to RETURN ANYTIME if have question/concern. 3. Patient instructed that [facility] IS OPEN EVERY DAY, EVERY HOLIDAY, AND EVERY WEEKEND FROM 8 AM to 8 PM - [phone] extension 1 4. Patient directed to CALL 911/and/or GO IMMEDIATELY to the emergency dept if symptoms worsen [email or web address] Not available 04/30/2023 14:01:58 05/06/2023 [id number] allergies: care instructions Not available 05/06/2023 16:19:55 managing your allergies: care instructions Not available 05/06/2023 16:19:55 cough: care instructions Not available 05/06/2023 15:50:24 1. Patient to follow up here for laboratory and medication review/evaluation /treatment 2. Patient directed to RETURN ANYTIME if have question/concern 3. Patient instructed that [facility] IS OPEN EVERY DAY, 8 AM to 8 PM, EVERY WEEKEND AND HOLIDAY - [phone] 4. Patient directed to CALL 911/and/or GO IMMEDIATELY to the emergency dept if symptoms worsen. Not available 05/06/2023 15:51:54 05/27/2023 [id number] URINARY TRACT INFECTION A urinary tract infection, or UTI, is a general term for an infection anywhere between the kidneys and the urethra (where urine comes out). Most UTIs are bladder infections. They often cause pain or burning when you urinate. UTIs are caused by bacteria and can be cured with antibiotics. Be sure to complete your treatment so that the infection goes away. Follow-up care is a mckeon part of your treatment and safety. TODAY, we obtained your URINE and it was SENT for a URINE CULTURE. Please BE SURE to return and / or call if you SYMPTOMS DO NOT IMPROVE. It's also a good idea to know your test results and keep a list of the medicines you take. How can you care for yourself at home? Take your antibiotics as directed. Do not stop taking them just because you feel better. You need to take the full course of antibiotics. Drink extra water and other fluids for the next day or two. This may help wash out the bacteria that are causing the infection. (If you have kidney, heart, or liver disease and have to limit fluids, talk with your doctor before you increase your fluid intake.) Avoid drinks that are carbonated or have caffeine. They can irritate the bladder. Urinate often. Try to empty your bladder each time. To relieve pain, take a hot bath or lay a heating pad set on low over your lower belly or genital area. Never go to sleep with a heating pad in place. TO PROVENT UTIs Drink plenty of water each day. This helps you urinate often, which clears bacteria from your system. (If you have kidney, heart, or liver disease and have to limit fluids, talk with your doctor before you increase your fluid intake.) Urinate when you need to. Urinate right after you have sex. Change sanitary pads often. Avoid douches, bubble baths, feminine hygiene sprays, and other feminine hygiene products that have deodorants. After you use the toilet, wipe from front to back. When should you call for help: Return to our office or seek immediate medical care if: Symptoms such as fever, chills, nausea, or vomiting get worse or appear for the first time. You have new pain in your back just below your rib cage. This is called flank pain. There is new blood or pus in your urine. You have any problems with your antibiotic medicine. Watch closely for changes in your health, and be sure to contact your doctor or nurse call line if: You do not feel better after 2 days on an antibiotic. Your symptoms go away but then come back. [email or web address] Not available 05/27/2023 09:31:54 1. Patient to follow up here for laboratory and medication review/evaluation /treatment 2. Patient directed to RETURN ANYTIME if have question/concern 3. Patient instructed that [facility] OPEN EVERY DAY, 8 AM to 8 PM, EVERY WEEKEND AND HOLIDAY - [phone] 4. Patient directed to CALL 911/and/or GO IMMEDIATELY to the emergency dept if symptoms worsen. 1. Patient to follow up with PRIMARY CARE and or here if the symptoms do not improve. 2. Patient directed to RETURN ANYTIME if have question/concern. 3. Patient instructed that [facility] EVERY DAY, EVERY HOLIDAY, AND EVERY WEEKEND FROM 8 AM to 8 PM - [phone] extension 1 4. Patient directed to CALL 911/and/or GO IMMEDIATELY to the emergency dept if symptoms worsen. [email or web address] Not available 05/27/2023 09:31:54 05/24/2024 [id number] nausea and vomiting: care instructions Not available 05/24/2024 14:26:17 1. Patient to follow up with PRIMARY CARE and or here if the symptoms do not improve. 2. Patient directed to RETURN ANYTIME if have question/concern. 3. Patient instructed that [facility] OPEN EVERY DAY, EVERY HOLIDAY, AND EVERY WEEKEND FROM 8 AM to 8 PM - [phone] extension 1 4. Patient directed to CALL 911/and/or GO IMMEDIATELY to the emergency dept if symptoms worsen. Not available 05/24/2024 13:24:18 Reason for Referral Urologist Referral for Blood in urine Referring Physician: Magaly Sinclair, Family Medicine, Encounter Date: 05/27/2023 Results Created Date Observation Date Name Description Value Unit Range Abnormal Flag Note LastModifiedBy Organization Detail LastModifiedTime 04/01/19 24 04/03/2023 CULTU RE, URINE , ROUTI NE culture, urine, routine SEE NOTE CULTU RE, URINE , ROUTI NE Micro Numbe r: [id number] Test Statu s: Final Speci men Sourc e: Urine Speci men Quali ty: Adequ ate Resul t: Mixed genit al soraya isola caitlin. These super ficia l bacte norah are not indic ative of a urina ry tract infec tion. No furth er organ ism ident ifica tion is warra nted on this speci men. If clini jason indic ated, recol lect clean -catc h, mid-s tream urine and trans jennifer immed iatel y to Urine Cultu re Trans port Tube. Not Available [facility] [address], [place], [address], 04/03/2023 02:27:07 04/30/19 24 04/30/2023 RPP - VIRAL abnormal status negative Not Available [facility] [address], [place], [address], 05/01/2023 09:36:29 04/30/19 24 05/01/2023 RPP - BACTE RIAL streptococcu s pneumoniae NOT DETECT ED Not Available [facility] [address], [place], [address], 05/01/2023 09:36:28 04/30/19 24 05/01/2023 RPP - BACTE RIAL bordetella pertussis/ho lmesii NOT DETECT ED not detect ed Not Available [facility] [address], [place], [address], 05/01/2023 09:36:28 04/30/19 24 05/01/2023 RPP - BACTE RIAL chlamydophil a pneumoniae NOT DETECT ED not detect ed Not Available [facility] [address], [place], [address], 05/01/2023 09:36:28 04/30/19 24 05/01/2023 RPP - BACTE RIAL haemophilus influenzae NOT DETECT ED not detect ed Not Available [facility] [address], [place], [address], 05/01/2023 09:36:28 04/30/19 24 05/01/2023 RPP - BACTE RIAL klebsiella pneumoniae NOT DETECT ED not detect ed Not Available [facility] - [facility] Facility [address], [place], [address], 05/01/2023 09:36:28 04/30/19 24 05/01/2023 RPP - BACTE RIAL legionella (pneumophila NOT DETECT ED not detect ed Not Available [facility] Facility [address], [place], [address], 05/01/2023 09:36:28 04/30/19 24 05/01/2023 RPP - BACTE RIAL moraxella catarrhalis NOT DETECT ED not detect ed Not Available [facility] Facility [address], [place], [address], 05/01/2023 09:36:28 04/30/19 24 05/01/2023 RPP - BACTE RIAL mycoplasma pneumoniae NOT DETECT ED not detect ed Not Available [facility] Facility [address], [place], [address], 05/01/2023 09:36:28 04/30/19 24 05/01/2023 RPP - BACTE RIAL salmonella spp NOT DETECT ED not detect ed Not Available [facility] [address], [place], [address], 05/01/2023 09:36:28 04/30/19 24 05/01/2023 RPP - BACTE RIAL staphylococc us aureus NOT DETECT ED not detect ed Not Available [facility] Facility [address], [place], [address], 05/01/2023 09:36:28 04/30/19 24 05/01/2023 RPP - BACTE RIAL streptococcu s pneumoniae NOT DETECT ED not detect ed Not Available [facility] Facility [address], [place], [address], 05/01/2023 09:36:28 04/30/19 24 05/01/2023 COVID 19 (RT-P CR) 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 first test for condition N Not Available [facility] [address], [place], [address], 05/01/2023 09:36:27 04/30/19 24 05/01/2023 COVID 19 (RT-P CR) 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 Not Available [facility] [address], [place], [address], 05/01/2023 09:36:27 04/30/19 24 05/01/2023 COVID 19 (RT-P CR) 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 symptomatic Y Not Available [facility] [address], [place], [address], 05/01/2023 09:36:27 04/30/19 24 05/01/2023 COVID 19 (RT-P CR) 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 date of symptom onset Not Available [facility] [address], [place], [address], 05/01/2023 09:36:27 04/30/19 24 05/01/2023 COVID 19 (RT-P CR) 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 hospitalized because of this condition N Not Available [facility] [address], [place], [address], 05/01/2023 09:36:27 04/30/19 24 05/01/2023 COVID 19 (RT-P CR) 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 in ICU N Not Available [facility] [address], [place], [address], 05/01/2023 09:36:27 04/30/19 24 05/01/2023 COVID 19 (RT-P CR) 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 resides in A congregate care setting N Not Available [facility] [address], [place], [address], 05/01/2023 09:36:27 04/30/19 24 05/01/2023 COVID 19 (RT-P CR) 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 status N Not Available [facility] [address], [place], [address], 05/01/2023 09:36:27 04/30/19 24 05/01/2023 COVID 19 (RT-P CR) 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 covid-19 (PCR) NOT DETECT ED negative Not Available [facility] [address], [place], [address], 05/01/2023 09:36:27 04/30/19 24 05/01/2023 COVID 19 (RT-P CR) 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 covid-19 (PCR) NEGATI VE not detect ed negative Not Available [facility] [address], [place], [address], 05/01/2023 09:36:27 05/27/19 24 05/29/2023 CULTU RE, URINE , ROUTI NE culture, urine, routine SEE NOTE CULTU RE, URINE , ROUTI NE Micro Numbe r: [id number] Test Statu s: Final Speci men Sourc e: Urine Speci men Quali ty: Adequ ate Resul t: No Growt h A alecia yoo t has been faxed to the [facility] wing: Faxed to: [phone] on: 05/28 07:08 Not Available [facility] [address], [place], [address], 05/29/2023 07:35:45 Result Notes None recorded. Problems Name Problem SNOMED Code Status Onset Date Resolution Date Notes Provider Name and Address Organization Details Recorded Time Herpes zoster 8930869 [facility] 2023 [facility] 4 10:16:45 Anxiety 11538928 Active 2023 [facility] 4 10:16:52 Depressive disorder 48214802 Active 2023 [facility] 4 10:17:01 Hypothyroidism 77992969 Active 2023 [facility] 4 10:17:10 Problem Notes None recorded. Procedures Surgical History Date Name Laterality Status Provider Name and Address Organization Details Recorded Time 05/27/19 24 Urine dip stick completed Magaly Sinclair, [place], [address], [place], [place], [address] [place] [address], [facility] 05/27/2023 09:26:21 04/01/19 24 Urine dip stick completed Bhavani Reyes NP, [address], [place], [place], [address] [place] [address], [facility] 04/01/2023 10:47:53 chimeric antigen receptor T-cell immunotherapy completed Wilder Mcguire [facility] 04/01/2023 10:18:50 Imaging Results None recorded. Procedure Notes None recorded. Medical Equipment None Reported. Allergies Allergen ID Allergen Name Allergen Category Reaction Reaction Severity Criticality Documentation Date Start Date Code Code System Note Provider Name and Address Organization Details Recorded Time 41148 Bactrim medicatio n Not available Not available Not available 04/01/2023 05653 9 RxNorm [facility] 4 10:10:24 70740 Substance with sulfonami de structure and antibacte rial mechanism of action (substanc e) medicatio n Not available Not available Not available 04/01/2023 32365 8003 SNOMED [facility] 4 10:13:25 83111 clindamyc in Not available Not available Not available Not available 04/01/2023 2582 RxNorm Wilder salazar, [facility], [facility] 4 10:14:14 08175 Darvocet- N medicatio n Not available Not available Not available 04/01/2023 40108 UNK Wilder salazar, [facility], [facility] 4 10:14:20 20440 acetamino phen / oxycodone medicatio n Not available Not available Not available 04/01/2023 98228 3 RxNorm Wilder salazar, [facility], [facility] 4 10:14:27 64504 tramadol medicatio n Not available Not available Not available 04/01/2023 74856 RxNorm Wilder salazar, [facility], [facility] 4 10:14:31 90947 Tylenol with Codeine medicatio n Not available Not available Not available 04/01/2023 83026 6 RxNorm Wilder salazar, [facility], [facility] 4 10:14:40 87703 linezolid medicatio n Not available Not available Not available 04/01/2023 20042 6 RxNorm Wilder salazar, [facility], [facility] 4 10:15:36 Medications Name Sig Start Date Stop Date Status Note LastModified by Organization Details LastModified Time doxycycline hyclate 100 mg capsule Take 1 capsule twice a day by oral route for 7 days. 05/26 completed Not Available Not Available Not Available benzonatate 200 mg capsule Take 1 capsule 3 times a day by oral route. 05/05 completed Not Available Not Available Not Available Claritin 10 mg tablet Take 1 tablet every day by oral route. 05/26 completed Not Available Not Available Not Available Medrol (Collin) 4 mg tablets in a dose pack as directed 05/26 completed Not Available Not Available Not Available clonazepam 0.5 mg tablet Take 1 tablet twice a day by oral route. active Not Available Not Available No t Available acyclovir 400 mg tablet Take 1 tablet twice a day by oral route. active Not Available Not Available No t Available levothyroxi ne 25 mcg tablet Take 1 tablet every day by oral route. active Not Available Not Available No t Available Macrobid 100 mg capsule Take 1 capsule every 12 hours by oral route. 05/24 completed Not Available Not Available Not Available gabapentin 300 mg capsule Take 1 capsule every day by oral route. active Not Available Not Available No t Available azelastine 137 mcg (0.1 %) nasal spray Dimock 2 sprays twice a day by intranasa l route. 05/26 completed Not Available Not Available Not Available ipratropium bromide 42 mcg (0.06 %) nasal spray Dimock 2 sprays 3 times a day by intranasa l route for 5 days. 05/05 completed Not Available Not Available Not Available Zoloft 100 mg tablet Take 1 tablet every day by oral route. active Not Available Not Available No t Available ondansetron 4 mg disintegrat ing tablet Place 2 tablets twice a day by transling ual route for 5 days. 2024 active Not Available Not Available Not Avai lable Vitals Date Recorded Respiratory rate Heart rate Oxygen saturation Oxygen saturation in Arterial blood by Pulse oximetry Body temperature Body weight Body mass index (BMI) Body height Systolic blood pressure Diastolic blood pressure Provider Name and Address Organization Details Last Updated DateTime 4 18 /min 67 /min 97 % 97 % 97.3 [degF] 91157.8 2 g 25 kg/m2 152.4 cm 111 mm[Hg] 70 mm[Hg] Wilder CHILDERS [facility] 4 10:39:17 Date Recorded Body height Respiratory rate Body mass index (BMI) Body weight Heart rate Body temperature Oxygen saturation Oxygen saturation in Arterial blood by Pulse oximetry Systolic blood pressure Diastolic blood pressure Provider Name and Address Organization Details Last Updated DateTime 4 152.4 cm 18 /min 25.2 kg/m2 69587.4 2 g 101 /min 98 [degF] 97 % 97 % 100 mm[Hg] 69 mm[Hg] Marilin Boston [facility] 4 13:57:54 Date Recorded Body height Body temperature Respiratory rate Heart rate Body mass index (BMI) Body weight Oxygen saturation Oxygen saturation in Arterial blood by Pulse oximetry Systolic blood pressure Diastolic blood pressure Provider Name and Address Organization Details Last Updated DateTime 4 152.4 cm 98.1 [degF] 18 /min 92 /min 25.2 kg/m2 40568.4 2 g 96 % 96 % 117 mm[Hg] 72 mm[Hg] Christine Martinezjarret [facility] 4 15:31:43 Date Recorded Body height Heart rate Respiratory rate Body temperature Body mass index (BMI) Body weight Oxygen saturation Oxygen saturation in Arterial blood by Pulse oximetry Systolic blood pressure Diastolic blood pressure Provider Name and Address Organization Details Last Updated DateTime 5 152.4 cm 97 /min 18 /min 98.6 [degF] 26 kg/m2 52247.7 9 g 98 % 98 % 106 mm[Hg] 68 mm[Hg] Bailey Eugene [facility] 5 13:11:48 Date Recorded Body height Provider Name an d Address Organization Details Last Updated DateTime 05/27/2023 152.4 cm Magaly Sinclair, WINCHER, [address], [place], [address], [facility] 05/27/2023 09:21:40 Date Recorded Respiratory rate Body temperature Heart rate Body mass index (BMI) Body weight Oxygen saturation Oxygen saturation in Arterial blood by Pulse oximetry Systolic blood pressure Diastolic blood pressure Provider Name and Address Organization Details Last Updated DateTime 4 18 /min 95 [degF] 81 /min 25.4 kg/m2 86287.0 1 g 95 % 95 % 93 mm[Hg] 57 mm[Hg] JOSHUA Mackenzie [facility], [facility] 4 09:38:45 Social History None recorded. Functional Status Question Answer Note LastModified by Organization D etails LastModified Time What is your level of alcohol consumption? None Information not available 04/01/2023 Mental Status None recorded. Family History Nothing Reported. Medical History Condition Response Coronary Artery Disease N Other N Gout N Blood Diseases N Kidney Stones N Hyperthyroidism N Blood Transfusion N Stomach or Peptic Ulcer N Emphysema N Depression Y COPD N Anxiety Disorder Y Hemorrhoids N Autoimmune disease N Muscle, Joint, or Bone Problems N Obesity N Vision or Eye Problems N Arthritis N Hiatal hernia N Restless Leg Syndrome N Infertility N Blood Clot N Mental Disorder N Peripheral Vascular Disease I73.9 N Cancer Y Stroke N Headaches N Fibromyalgia N Kidney Disease N Ear or Hearing Problems N Hospitalizations N Varicocele N Eating Disorder N Skin Problems N Emergency Room Visit N MRSA exposure N Constipation N Cystocele N Rheumatic Fever N Respiratory / Lung Disorder N Tuberculosis N AIDS/HIV N Cataract N Asthma N Hepatitis N Pulmonary Embolism N Chronic Peripheral Venous Hypertension I87.399 N Chronic Ear Infections N Chicken Pox N Autism Spectrum Disorder (ASD) N Thrombophilias N Leukemia N Breast Cancer N Hypothyroidism Y Glaucoma N Defects or Inherited Disease N Developmental or Behavioral Disorders N Breast Problem N Difficulty Swallowing N Transient Ischemic Attack (TIA) N Anesthesia Complications N Meniere's disease N Rectocele N Head Injury/Concussion N Chronic Kidney Disease (CKD) N Congenital Anomalies N Chrohn's Disease N Endometriosis N Bladder or Kidney Problems N High Cholesterol N Heart Disorder N Liver Disease N Allergies/Hayfever N Colitis N Epilepsy (Seizure ) N Prostate Cancer N Angina N GI Problems N ADD/ADHD N Neurology Disorder N Nasal Polyp N Anemia N Essential Tremor N Colon Polyps N Mental Illness N Ovarian Cancer N Diabetes N Bedwetting N Inherited disorder(s) N Heart Murmur N Congestive Heart Failure (CHF) N BPH Benign Prostrate Hypertrophy N Insomnia N Eczema N Abuse/Domestic Violence N Diverticulitis N Psoriasis N Reflux/GERD N Sleep Apnea N Macula degeneration N Heart Disease N Hypertension N Pre-Eclampsia N Osteoporosis N Gynecological HistoryNo gynecological history recorded. Obstetrics History GPAL:G 0 P 0 0 0 0 Immunizations Vaccine Type Date Status Note Provider Nam e and Address Organization Details Recorded Time COVID-19, mRNA, LNP-S, PF, 100 mcg/0.5mL dose or 50 mcg/0.25mL dose 1 completed ALVARADO Mckinley [facility] 04/30/2023 13:56:48 COVID-19, mRNA, LNP-S, PF, 100 mcg/0.5mL dose or 50 mcg/0.25mL dose 1 completed Marilin Lape [facility] 04/30/2023 13:56:48 pneumococcal polysaccharide PPV23 9 completed Marilin Lape null, [facility] 04/30/2023 13:56:48 Influenza, split virus, trivalent, preservative 8 completed Marilin Lape null, [facility] 04/30/2023 13:56:49 Past Encounters Encounter ID Performer Location Encounter Start Date Encounter Closed Date Diagnosis/Indication Diagnosis SNOMED-CT Code Diagnosis ICD10 Code Diagnosis Note [id number] Bhavani Reyes NP, [address] [address] 04/01/2023 09:59:33 04/01/2023 10:45:31 Urinary tract infectious disease 30521708 N39.0 Dysuria 58473829 R30.0 Increased frequency of urination 853387089 R35.0 Microscopic hematuria 19 1713298 R31.29 Likely related to UTI, if it does not resolve with TX, please RTC or PCP for further testing. [id number] Akanksha Lazo NP, [address] [address] 04/30/2023 13:50:01 04/30/2023 14:18:42 Acute upper respiratory infection 54342944 J06.9 Suspected COVID-19 81671 4004 Z20.822 Discussed appropriat e quarantine per [facility]. Results will be available in [facility] 24-48 hours. If SOB or CP develop, proceed to ER. Dry cough 71310853 R05.9 Posterior rhinorrhea 758 21322 R09.82 [id number] Magaly Sinclair NP, [address] [address] 05/06/2023 15:25:54 05/06/2023 15:52:39 Productive cough-yellow sputum 043387666 R09.3 Posterior rhinorrhea 758 39210 R09.82 Environmental allergy 42 5873527 T78.49XA [id number] Magaly Sinclair, SUZANNE, S [address] [place] [address] 05/27/2023 09:20:20 05/27/2023 09:51:11 Urgent desire to urinate 86108477 R39.15 Dysuria 62049149 R30.0 Urinary tr act infectious disease 54169586 N39.0 Urine leuk ocyte test = ++ 187049650 R82.998 Blood in urine 03114348 R31.9 patient returning to [place] Thursday05/30/2023 and will follow up with her PCP [id number] Linh Rangel NP,S [facility] [address] [facility] [address] [place] [address] 05/24/2024 12:50:06 05/24/2024 13:40:10 Nausea 164372162 R11.0 B.R.A.T DIET -I recommende d to keep a LIQUID DIET for 24-48 hours-then move to a B.R.A.T. diet.-this diet is used to help control diarrhea and vomiting symptoms.- Frequent feeding of tea, flat carbonated beverages are encouraged . In 2 days, if you can tolerate clear liquids, you may have:-*Ban anas *Rice *Applesauc e *Mccool (or other simple starches like crackers, soups, noodles, or potatoes). -rest the bowel by AVOID high fiber foods, fatty foods, milk products (dairy products), meats, caffeine, and alcohol until your symptoms are resolved.- drink plenty of fluid (half water + half Gatorade or Propel or PowerAid). Fruit juices such as apple, grape, and prune juice can make diarrhea worse and should be avoided.-D O NOT continue on this diet for more than 2 days without checking with your doctor.-fu : Melyssa Gomez SIS Acute uppe r respiratory infection 07453571 J06.9 Health Concerns Section Related Observation LastModified by Organization Detai ls LastModified Time None Recorded Concern Status LastModified by Organization Details LastModified Time None Recorded Advance Directives Directive None Recorded Payers Insurance Date Sequence Insurance Name Policy Number Policy Varma Covered Member ID Varma Member ID Guarantor Name 05/31/2024 2 [facility] (MEDICARE SUPPLEMENT) Matilda Owens [id number] Matilda Owens 05/24/2024 1 MARTÍN [facility] - MEDICARE-[address] (MEDICARE) Matilda Owens [id number] Matilda Owens Notes Date Note Type Note Provider Name and Address Organization Details Recorded Time 04/01/2023 text/html Bladder Problem( s) Symptom(s) IM FMReported bypatient.Presentati on:urinary frequency;painful urination Severity:worsening;m oderate - urge to urinate 2-3 x every hour Onset:acute, present for < 1 week Duration/Timing:void s 4-10 times a day; occurs at night/while sleeping Context:improve with medication; history of bladder infections Alleviating Factors:nothing gets better Aggravating Factors:nothing makes it worse Associated Symptoms:no urine odor; no blood in the urine; no fever; no chills; no abdominal pain; no back pain; no pain in the flank; no incontinence; no dribbling; no straining; no constipation; no diarrhea;pain during urination;urgency to urinate;feeling of incomplete emptying of bladder;nocturia times per night Medication reconciliation done. Bhavani Reyes, SUZANNE, [address], [place], [address], [facility], [facility] 04/01/2023 10:48:03 04/30/2023 text/html Upper Respirator y (URI) Symptoms IM FMReported bypatient.Location:[facility]; nasal Presentation:nasal discharge;dry cough Severity:no pain Duration:constant Onset/Timing:onset date (04/29/2023); symptoms lasting less than 2 weeks Context:no sick contacts; no foreign travel; no recent injury; non-smoker Alleviating Factors:nothing helps Aggravating Factors:nothing makes it worse Associated Symptoms:no chest pain; no fever; no chills; no chest wall pain/discomfort; no shortness of breath; no sputum production; no wheezing; no cyanosis; no fatigue; no sweats; no rash; no nausea; no vomiting; no diarrhea;morning cough;sore throat;headache;chil ls; pt is also complaining of body aches. medication reconciliation done Akanksha Lazo NP, [address], [place], [address], [facility] [employer] & [facility], [facility] 04/30/2023 14:25:10 05/06/2023 text/html Upper Respirator y (URI) Symptoms IM FMReported bypatient.Location:[facility]; nasal Presentation:chest congestion;productiv e cough Severity:no pain Duration:constant Onset/Timing:onset date (04/29/2023); symptoms lasting less than 2 weeks Context:no sick contacts; no foreign travel; no recent injury; non-smoker Alleviating Factors:nothing helps Aggravating Factors:nothing makes it worse Associated Symptoms:no chest pain; no fever; no chills; no chest wall pain/discomfort; no shortness of breath; no sore throat; no wheezing; no headache; no cyanosis; no fatigue; no sweats; no rash; no nausea; no vomiting; no diarrhea;yellow sputum;morning cough medication reconciliation done pt was seen on 04/30/23 and her nasal swab came back for all negative Magaly Sinclair NP, [address], [place], [address], [facility] [employer] [facility], [facility] 05/06/2023 16:20:10 05/27/2023 text/html Bladder Problem( s) Symptom(s) IM FMReported bypatient.Presentati on:urinary frequency;painful urination Severity:moderate - urge to urinate 2-3 x every hour Onset:symptoms started 2 days ago Context:history of bladder infections Alleviating Factors:nothing gets better Aggravating Factors:nothing makes it worse Associated Symptoms:pain during urination;urgency to urinate;feeling of incomplete emptying of bladder medication reconciliation completed Magaly Sinclair NP, [address], [place], [address], [facility] [employer] & [facility] 05/27/2023 09:49:38 05/24/2024 text/html Nausea IM FMReported bypatient.Associated Pain/LocationNo pain: 0/10;epigastric Symptoms Severity:worsening Onset/Timing:gradual onset (05/21/2024) Contextno drug/alcohol abuse; no one else with similar symptoms; no well water;possible food source; history of multiple myeloma. Patient states she has intolerance to lactose. Alleviating factors:nothing gives relief Aggravating factors:nothing makes it worse Associated Symptoms:diarrhea;vo miting; headache, chills, sweats Medication reconciliation done. Linh Rangel NP,S [address], [place], [address], [facility], [facility] 05/24/2024 14:26:41 OBGyn Episode No OBEpisode recorded.
--- OUTSIDE RECORDS SUMMARY | 2024-08-10 08:37 | XMS_ITS | Encounter Summary ---
Author Organization [facility] Address [address] [place] [address] Care Team Providers Care Belt Maker Name Role Phone Wong Javed DO Primary Care Provider [phone] Rm Tate MD Unavailable Gracia Bruner MD Unavailable France Boswell RN Unavailable Unavailable Source Comments In the event this information is protected by the Federal Confidentiality of Alcohol and Drug AbusePatient Records regulations: The Federal rules restrict any use of the information to criminally investigate or prosecute any alcohol or drug abuse patient.[facility] Reason for Visit * Reason Onset Date Comments Refill Request 08/01/2024 Encounter Details Date Type Department Care Team (Late st Contact Info) Description 08/01/2024 Refill Hematology [address] [facility] [place] [address] Rm Tate MD [address] [place] [address] Refill Request Social History Tobacco Use [...] N ot on file 01/28/2020 Data from: https://www.neighborhoodatlas.medicine.[place].[facility]/. 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 Requested Prescriptions Pending Prescriptions Disp Refills gabapentin (NEURONTIN) 100 mg capsule 90 capsule 0 Sig: Take 1 capsule by mouth once daily for 90 days. Beverly Hartman APRN.CNP PDMP website checked and validated. All prescriptions have been APPROPRIATELY filled. No suspiciousactivity was identified. 08/01/2024 by Beverly Hartman APRN.CNP * Telephone Encounter - Laurie Hickey - 08/01/2024 10:06 AM EDT Patient phones requesting refills as follows: Requested Prescriptions Pending Prescriptions Disp Refills gabapentin (NEURONTIN) 100 mg capsule 90 capsule 0 Please review and advise. Laurie Feliciano documented in this encounter Plan of Treatment Upcoming Encounters Date Type Department Care Team (Latest Contact Info) Description 09/30/2024 9:45 AM EDT Visit (SP) Office Hematology [address] [place] [address] Rm Tate MD [address] [place] [address] [address] Tate 09/29/24, labs 1 week prior documented as of this encounter Visit Diagnoses Not on filedocumented in this encounter Care Teams Belt Maker Relationship Specialty Start Date End Date Wong Javed DO [address] [place] [address] PCP - General Internal Medicine 11/04/16 Rm Tate MD [address] [place] [address] Physician Hematology/Oncology 03/01/19 [place] [address] [place] [id number] Physician Blood and Marrow Transplant 09/17/21 France Boswell, HAMZAH Specialty Mold Construction Supervisor Hematology/Oncology 10/22/23 Dr Hailee Cartagena [facility] [place] [address] Physician Oncology 03/05/23 documented as of this encounter
--- OUTSIDE RECORDS SUMMARY | 2024-08-10 08:37 | XMS_ITS | Encounter Summary ---
Author Organization [facility] Address [address] [place] [address] Care Team Providers Care Forestry Conservation Worker Name Role Phone Wong Javed Primary Care Provider [phone] Verónica Shepard RN Unavailable [phone] Rm Tate MD Unavailable [phone] Mary Bear PA-C Unavailable [phone] Gracia Bruner MD Unavailable Dorinda Daly RN Unavailable [phone] Tahira Carirllo Unavailable [phone] France Boswell RN Unavailable Unavailable Source Comments In the event this information is protected by the Federal Confidentiality of Alcohol and Drug AbusePatient Records regulations: The Federal rules restrict any use of the information to criminally investigate or prosecute any alcohol or drug abuse patient.[facility] Encounter Details Date Type Department Care Team (Latest Contact Info) Description 03/15/2021 H&P External-NonCCF Provider, GELACIO Zhang Do not [...] N ot on file 01/28/2020 Data from: https://www.neighborhoodatlas.medicine.[facility]/. 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 Unable to assess 03/18/2021 9:06 AM EST documented as of this encounter Functional Status * Are you deaf or do you have serious difficulty hearing? Answer Date of Assessment Author No 02/03/2021 1:46 PM Kitty Jiang RN * Are you blind or do you have serious difficulty seeing, even when wearing glasses? Answer Date of Assessment Author No 02/03/2021 1:46 PM Kitty Jiang RN * Do you have serious difficulty [...] 9:45 AM EDT Visit (SP) Office Hematology [address] [place] [address] Rm Tate MD [address] [place] [address] [address] Tate 09/29/24, labs 1 week prior documented as of this encounter Visit Diagnoses Not on filedocumented in this encounter Additional Health Concerns Infection Onset Date Last Indicated Resolved Time COVID-19 Rule-Out 12/30/2021 12/30/2021 12/30/2021 4:25 PM EST documented as of this encounter Care Teams Forestry Conservation Worker Relationship Specialty Start Date End Date Wong Javed DO [address] [place] [address] PCP - General Internal Medicine 11/04/16 Verónica Shepard RN [address] [place] [address] [place] [address] Specialty Optometric Tech Hematology/Oncology 02/04/17 09/15/23 Rm Tate MD [address] [place] [address] Physician Hematology/Oncology 03/01/19 Mary Bear, PAStacyC [address] [place] [address] [place] [address] Physician Lmsw Hematology/Oncology 03/01/19 [place] [address] [place] [address] Physician Blood and Marrow Transplant 09/17/21 [place] [address] [place] [address] Specialty Optometric Tech Blood and Marrow Transplant 09/17/21 04/03/22 Tahira Carrillo LISW [address] [place] [address] Edger Runner Blood and Marrow Transplant 10/09/21 05/28/22 France Boswell, HAMZAH Specialty Optometric Tech Hematology/Oncology 10/22/23 Dr Hailee Cartagena [address] [place] [address] Physician Oncology 03/05/23 documented as of this encounter
--- OUTSIDE RECORDS SUMMARY | 2024-08-10 08:37 | XMS_ITS | Encounter Summary ---
Author Organization [facility] Address [address] [place] [address] Care Team Providers Care Lens Assistant Name Role Phone Wong Javed DO Primary Care Provider [phone] Rm Tate MD Unavailable [phone] Gracia Bruner MD Unavailable France Boswell RN Unavailable Unavailable Source Comments In the event this information is protected by the Federal Confidentiality of Alcohol and Drug AbusePatient Records regulations: The Federal rules restrict any use of the information to criminally investigate or prosecute any alcohol or drug abuse patient.[facility] Encounter Details Date Type Department Care Team (Late st Contact Info) Description 06/22/2024 Telephone Hematology [address] [place], [place] [id number] Rm Tate MD [address] [place] [address] Social History Tobacco Use Types Packs/Day Years [...] N ot on file 01/28/2020 Data from: https://www.neighborhoodatlas.medicine.[facility]/. 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 * Telephone Encounter - Cindy Borjas - 06/22/2024 8:50 AM EDT Lali is calling Rm Tate MD today to report that she is sick and will not be able to make her appointment today. Lali states she has contacted her PCP and will be getting a chest Xray today. Lali rescheduled for 06/29. Patient has been identified by name and birthdate. Person calling: self Call patient at: on cell [phone] (home) [phone] (cell) Was an appointment scheduled: No Closing statement: Results or non-symptom based questions: Thank you for calling [facility], your call will be returned within the next business day. Cindy Borjas documented in this encounter Plan of Treatment Upcoming Encounters Date Type Department Care Team (Latest Contact Info) Description 09/30/2024 9:45 AM EDT Visit (SP) Office Hematology [address] [place] [address] Rm Tate MD [address] [place] [address] [address] Tate 09/29/24, labs 1 week prior documented as of this encounter Visit Diagnoses Not on filedocumented in this encounter Care Teams Lens Assistant Relationship Specialty Start Date End Date Wong Javed DO [address] [place] [address] PCP - General Internal Medicine 11/04/16 Rm Tate MD [address] [place] [address] Physician Hematology/Oncology 03/01/19 [place] [address] [place] [address] Physician Blood and Marrow Transplant 09/17/21 France Boswell, RN Specialty Public Aid Eligibility Assistant Hematology/Oncology 10/22/23 Dr Hailee Cartagena [address] [address] Physician Oncology 03/05/23 documented as of this encounter
[2024-08-10 10:20] LABS: Bilirubin Urine NEGATIVE (NEGATIVE); Blood Urine TRACE-I (NEGATIVE); Clarity Urine CLEAR (CLEAR); Color Urine YELLOW (YELLOW); Glucose Urine UA NEGATIVE (NEGATIVE); Ketones Urine NEGATIVE (NEGATIVE); Leukocyte Esterase Urine TRACE (NEGATIVE); Nitrite Urine NEGATIVE (NEGATIVE); Protein Urine NEGATIVE (NEG/TRACE); Specific Gravity Urine 1.025 (1.005-1.025); Urobilinogen Urine 0.2 EU/dL (0.2-1.0); pH Urine 5.5 (5.0-9.0)
[2024-08-10 10:36] LABS: Bacteria Urine TRACE #/HPF (NONE SEEN); Cast Seen? SEEN #/LPF (NONE SEEN); Crystals Seen? None Seen #/HPF (None Seen); Hyaline Casts Urine RARE; Mucus Urine TRACE (NONE SEEN); RBC Urine 0-2 #/HPF (0-2); Squamous Epithelial Cell Urine FEW #/LPF (NONE/RARE)
== END 2024-08-10 08:30 | disposition home or self-care (01) ==
LOC: LAB 08:29
PROVIDERS: PCP Internal Medicine; Visit Provider Internal Medicine
DX: R30.0 Dysuria (principal)
CPT/HCPCS: 81001; 87086

== ENCOUNTER 2024-08-16 14:40 | Outpatient (OUT) | payer MEDICARE, OTHER, SELFPAY ==
--- OUTSIDE RECORDS SUMMARY | 2024-08-16 14:47 | XMS_ITS | Clinical Summary ---
Author Organization [facility] Address [address] [place] [address] Care Team Providers Care Recycling Center Operator Name Role Phone Unavailable Primary Care [...]
--- OUTSIDE RECORDS SUMMARY | 2024-08-16 14:47 | XMS_ITS | Encounter Summary ---
Author Organization [facility] Address [address] [place] [address] Care Team Providers Care Data Communications Engineer Name Role Phone Wong Javed DO Primary Care Provider [phone] Rm Tate MD Unavailable Gracia Bruner MD Unavailable France Boswell RN Unavailable Unavailable Source Comments In the event this information is protected by the Federal Confidentiality of Alcohol and Drug AbusePatient Records regulations: The Federal rules restrict any use of the information to criminally investigate or prosecute any alcohol or drug abuse patient.[facility] Reason for Visit * Reason Comments Refill Request Encounter Details Date Type Department Care Team (Late st Contact Info) Description 04/04/2024 Refill Hematology/Oncology [address] [place] [address] [place] [address] Rm Tate MD [address] [facility] [place] [address] Refill Request Social History Tobacco [...] N ot on file 01/28/2020 Data from: https://www.neighborhoodatlas.medicine.[facility]/. 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 [address] [place] [address] lab 09/30/2024 9:45 AM EDT Visit (SP) Office Hematology [address] [place] [address] Rm Tate MD [address] [place] [address] Tate 09/29/24, labs 1 week prior documented as of this encounter Visit Diagnoses Not on filedocumented in this encounter Care Teams Data Communications Engineer Relationship Specialty Start Date End Date Wong Javed DO [address] [place] [address] PCP - General Internal Medicine 11/04/16 Rm Tate MD [address] [place] [address] Physician Hematology/Oncology 03/01/19 [place] [address] [place] [address] Physician Blood and Marrow Transplant 09/17/21 France Boswell, HAMZAH Specialty Film Cleaner Hematology/Oncology 10/22/23 Dr Hailee Cartagena [address] [address] Physician Oncology 03/05/23 documented as of this encounter
--- OUTSIDE RECORDS SUMMARY | 2024-08-16 14:47 | XMS_ITS | Clinical Summary ---
Author Organization [facility] Address [address] [place] [address] Care Team Providers Care Floor Renovator Name Role Phone Unavailable Primary Care Provider [...] , 11/25/2021, Additional history [place] [address]
--- OUTSIDE RECORDS SUMMARY | 2024-08-16 14:48 | XMS_ITS ---
Author Organization [facility] Address [address] [place] [address] Care Team Providers Care Roll Form Operator Name Role Phone Wong Javed DO Primary Care Provider [phone] Rm Tate MD Unavailable [phone] Gracia Bruner MD Unavailable France Boswell RN [...] Plan - Scheduled for neulasta 02/05 in [place] - orders per [facility] discharge follow-up 01/29/2021 Overview (02/01/2021): Will need Levaquin ppx neulasta (Misty 02/05) Day 8 velcade [place] 02/05 Remove PICC prior to d/c 2/weekly [...] AMB IMMUNE GLOBULIN 0.4 D1 - Q28D 3 06/11/2022 immune globulinimmune globulin iv infusion 10% (GAMMAGARD) Other Rm Tate MD 2 of 6 cycles started BONE MODIFYING AGENT: $ - Q3 MONTHS IF CRCL IS GREATER THAN 30 ML/MIN 02/12/20 19 04/08/2022 zoledronic yv-ysikredl-2.9Na Cl (ZOMETA)zoledroni c acid (ZOMETA)zoledroni c acid iv piggyback (ZOMETA) Other Rm Tate [...] 1800 D1,8,15,22 THEN D1,15 THEN D1 CARFILZOMIB / D1,8,15 - Q28D 04/02/19 22 01/03/2022 carfilzomib [...] (KYPROLIS)cyclophosp hamide iv piggyback (CYTOXAN)palonosetro n (ALOXI) Other Rm Tate MD 2 of 9 cycles started IP/AMB [...] 04/02/2021 04/02/2021 daratumumab 1,800 mg - hyaluronidase -fihj 30,000 units (DARZALEX FASPRO) Other Rm Tate [...]
--- OUTSIDE RECORDS SUMMARY | 2024-08-16 14:49 | XMS_ITS | Encounter Summary ---
Author Organization [facility] Address [address] [place] [address] Care Team Providers Care Numerical Control Operator Name Role Phone Wong Javed Primary Care Provider [phone] Verónica Shepard RN Unavailable [phone] Rm Tate MD Unavailable [phone] Mary Bear PA-C Unavailable [phone] Gracia Bruner MD Unavailable Dorinda Daly RN Unavailable [phone] Tahira Carrillo Unavailable [phone] France Boswell RN Unavailable Unavailable Source Comments In the event this information is protected by the Federal Confidentiality of Alcohol and Drug AbusePatient Records regulations: The Federal rules restrict any use of the information to criminally investigate or prosecute any alcohol or drug abuse patient.[facility] Encounter Details Date Type Department Care Team (Late st Contact Info) Description 01/23/2021 Tumor Board Hematology/Oncology [address] [place] [address] Cynthia Flores APRN.STUFFER [id number] [place] [id number] Social History Tobacco Use Types Packs/Day Years [...] N ot on file 01/28/2020 Data from: https://www.neighborhoodatlas.medicine.[facility].edu/. 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 Tate 09/29/24, labs 1 week prior documented as of this encounter Visit Diagnoses Not on filedocumented in this encounter Additional Health Concerns Infection Onset Date Last Indicated Resolved Time COVID-19 Rule-Out 01/29/2021 01/28/2021 02/18/2021 8:51 PM EST COVID-19 Rule-Out 12/30/2021 12/30/2021 12/30/2021 4:25 PM EST documented as of this encounter Care Teams Numerical Control Operator Relationship Specialty Start Date End Date Wong Javed DO [address] [place] [address] PCP - General Internal Medicine 11/04/16 Verónica Shepard RN [address] [place] [address] Specialty Academic Hospitalist Hematology/Oncology 02/04/17 09/15/23 Rm Tate MD [address] [place] [address] [place] [address] Physician Hematology/Oncology 03/01/19 Mary Bear, PA-C [address] [place] [address] Physician Rehabilitation Clerk Hematology/Oncology 03/01/19 [place] [address] [place] [address] Physician Blood and Marrow Transplant 09/17/21 Dorinda Daly, HAMZAH [address] [place] [address] Specialty Academic Hospitalist Blood and Marrow Transplant 09/17/21 04/03/22 Tahira Carrillo LISW [address] [place], [place] [id number] Aurist Blood and Marrow Transplant 10/09/21 05/28/22 France Boswell, HAMZAH Specialty Academic Hospitalist Hematology/Oncology 10/22/23 Dr Hailee Cartagena [address] [address] Physician Oncology 03/05/23 documented as of this encounter
--- OUTSIDE RECORDS SUMMARY | 2024-08-16 14:49 | XMS_ITS | Clinical Summary ---
Author Organization [facility] Address [address] [place] [address] Care Team Providers Care Bath Steward Name Role Phone Wong Javed DO Primary Care Provider [phone] Rm Tate MD Unavailable [phone] Gracia Bruner MD Unavailable France Boswell RN [...] Plan - Scheduled for neulasta 02/05 in [place] - orders per [facility] discharge follow-up 01/29/2021 Overview (02/01/2021): Will need Levaquin ppx neulasta ([place] 02/05) Day 8 velcade [place] 02/05 Remove PICC prior to d/c 2/weekly [...] Department Care Team Description 08/01/2024 Refill Hematology [id number] [place] [address] [place] [address] Rm Tate MD Refill Request 07/08/2024 Telephone Hematology [address] [place] [address] Leyla Blevins RN Results; Metal Tank Builder - Other 07/07/2024 1:49 PM EDT - 07/07/2024 11:59 PM EDT Hospital Encounter Radiology Pet CT [address] [facility] [place] [address] Multiple myeloma not having achieved remission (HCC) [C90.00] Discharge Disposition: Home 06/30/2024 Telephone Hematology [id number] [place], [place] [address] [address] Rm Tate MD 06/29/2024 4:15 PM EDT Visit (SP) Office Hematology [address] [place] [address] [place] [address] Rm Tate MD Multiple myeloma not having achieved remission (HCC) (Primary Dx); Lung crackles 06/29/2024 Travel 06/26/2024 Refill Hematology/Oncology [address] [facility] [address] Rm Tate MD Refill Request 06/22/2024 Telephone Hematology [address] [place] [address] [place] [address] Rm Tate MD 06/19/2024 Refill Hematology/Oncology [address] [facility] [place] [address] Rm Tate MD Refill Request 06/18/2024 Results Follow-Up Hematology [id number] [place] [address] [place] [address] Rm Tate MD from Last 3 Months Immunizations Immunization Administration Dates Next Due COVID-19 original vaccine, b ooster dose, monovalent (MODERNA) 10/10/2020 COVID-19 original vaccine, f ull dose, monovalent (MODERNA) 12/01/2023,07/16/2021,03/18/2021,10/10,04/06/2020,03/10/2020 COVID-19 vaccine, age 12+ yr (Inadco-Edevate COMIRNAT) 12/12/2022 COVID-19 vaccine, age 12+ yr [...] N ot on file 01/28/2020 Data from: https://www.neighborhoodatlas.medicine.[facility].edu/. 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 [address] lab 09/30/2024 9:45 AM EDT Visit (SP) Office Hematology [address] [place] [address] Rm Tate MD [address] [place] [address] [address] Tate 09/29/24, labs [...] any questions regarding this interpretation, please call [phone]. If you are unable to reach us at the number above, please feel free to contact [facility] at [phone]. Narrative 07/08/2024 12:14 PM EDT * * *Final Report* * * DATE OF EXAM: Jul 07 2024 2:46PM [facility] 0541 - CT CHEST WO IVCON / [...] images through the upper abdomen are stable. Shop Blacksmith (topogram) images: No additional findings. Procedure Note Provider, [facility] - 07/08/2024 * * *Final Report* * * DATE OF EXAM: Jul 07 2024 2:46PM [facility] 0541 - CT CHEST WO IVCON / [...] images through the upper abdomen are stable. Shop Blacksmith (topogram) images: No additional findings. IMPRESSION IMPRESSION: [...] any questions regarding this interpretation, please call [phone]. If you are unable to reach us at the number above, please feel free to contact [facility] at [phone]. us Rm Tate MD CT-PAMA Final Result * IMMUNOFIXATION SCREEN, SERUM (06/15/2024 10:29 AM EDT) [facility] Result No M protein is identified. No M protein is identified. 06/17/2024 9:42 AM EDT [facility] Staff Review ([facility]) Reviewed by Rosangela Zuniga MD 06/17/2024 9:42 AM EDT [facility] Blood BLOOD SPECIMEN / Unknown Venipuncture / Unknown 06/15/2024 10:29 AM EDT 06/15/2024 10:29 AM EDT us Rm Tate MD LABORATORY Final Result [facility] [address] [address], [place] * PROTEIN ELECTROPHORESIS SERUM (P) (06/15/2024 10:29 AM EDT) Albumin for SPE 4.20 3.43 - 5.41 g/dL 06/17/2024 7:53 AM EDT [facility] Alpha 1 Globulin 0.32 0.18 - 0.43 g/dL 06/17/2024 7:53 AM EDT [facility] Alpha 2 Globulin 0.63 0.42 - 0.98 g/dL 06/17/2024 7:53 AM EDT [facility] Beta Globulin 0.67 0.61 - 1.17 g/dL 06/17/2024 7:53 AM EDT [facility] Gamma Globulin 0.58 0.53 - 1.51 g/dL 06/17/2024 7:53 AM EDT [facility] Interpretation (Prot Electro) No definitive M protein is identified on protein electrophores is. No definitive M protein is identified on protein electrophores is. 06/17/2024 7:53 AM EDT [facility] M-Protein Location 06/17/2024 7:53 AM EDT [facility] Comment:Not Applicable. M-Protein Concentration 0.00 <=0.00 g/dL 06/17/2024 7:53 AM EDT [facility] SPE Staff Review Reviewed by Rosangela Zuniga MD 06/17/2024 7:53 AM EDT [facility] Blood BLOOD SPECIMEN / Unknown Venipuncture / Unknown 06/15/2024 10:29 AM EDT 06/15/2024 10:29 AM EDT Narrative [facility] - 06/17/2024 7:53 AM EDT Serum electrophoresis test was performed using the ReachForce V8 NEXUS capillary electrophoresis method. Results obtained with different assay methods or kits cannot be used interchangeably. us Rm Tate MD LABORATORY Final Result [facility] [address] [place] [address], [place] * KAPPA/CASAREZ,FREE,SER (06/15/2024 10:29 AM EDT) [place] Free, Serum 8.5 3.3 - 19.4 mg/L 06/16/2024 2:45 PM EDT [facility] Comment: Rarely, increased serum free light chains levels may not be detected or accurately quantified due to prozone phenomenon or in high viscosity samples using this immunoturbidimetric assay. Correlation with other laboratory results and clinical findings is recommended. The [place] Free Light Chain was performed using the Binding Site Optilite immunoturbidimetric method. Result obtained with different assay methods or kits cannot be used interchangeably. Lambda Free, Serum 10.6 5.7 - 26.3 mg/L 06/16/2024 2:45 PM EDT [facility] Comment: Rarely, increased serum free [...] 0.26 - 1.65 06/16/2024 2:45 PM EDT [facility] Blood BLOOD SPECIMEN / Unknown Venipuncture / Unknown 06/15/2024 10:29 AM EDT 06/15/2024 10:29 AM EDT us Rm Tate MD LABORATORY Final Result [facility] [address] [facility] [address] [place] [address], [place] * (ABNORMAL) CD4 ABSOLUTE COUNT (06/15/2024 10:29 AM EDT) [facility] CD3+ T Cell % 69 60 - 89 % 06/16/2024 3:11 PM EDT [facility] CD3+ T Cell # 853(L) 958 - 2,388 cells/uL 06/16/2024 3:11 PM EDT [facility] CD3+CD4+ T Cell % 19(L) 34 - 61 % 06/16/2024 3:11 PM EDT [facility] CD3+CD4+ T Cell # 237(L) 533 - 1,674 cells/uL 06/16/2024 3:11 PM EDT [facility] Blood BLOOD SPECIMEN / Unknown Venipuncture / Unknown 06/15/2024 10:29 AM EDT 06/15/2024 10:29 AM EDT Narrative [facility] - 06/16/2024 3:11 PM EDT [...] developed and its performance characteristics determined by [facility]'s Jonathon JRimma [facility] Pathology and Laboratory Medicine [place] (- PLMI). It has not been cleared or approved by the FDA. -[facility] is regulated under CLIA as qualified to perform high-complexity testing. This test is used for clinical purposes. It should not be regarded as investigational or for research. Rm Tate MD LABORATORY Final Result [facility] [address] [facility] [address] [place] [address], [place] * PROTEIN, TOTAL (06/15/2024 10:29 AM EDT) Protein, Total 6.4 6.3 - 8.0 g/dL 06/15/2024 6:54 PM EDT [facility] Blood BLOOD SPECIMEN / Unknown Venipuncture / Unknown 06/15/2024 10:29 AM EDT 06/15/2024 10:29 AM EDT Rm Tate MD LABORATORY Final Result [facility] [address] [place] [address], [place] * (ABNORMAL) IMMUNOGLOBULINS,IGG,IGA,IGM (06/15/2024 10:29 AM EDT) [facility] IgG 694(L) 700 - 1,600 mg/dL 06/15/2024 8:39 PM EDT [facility] IgA 92 70 - 400 mg/dL 06/15/2024 8:39 PM EDT [facility] IgM 118 40 - 230 mg/dL 06/15/2024 8:39 PM EDT [facility] Blood BLOOD SPECIMEN / Unknown Venipuncture / Unknown 06/15/2024 10:29 AM EDT 06/15/2024 10:29 AM EDT us Rm Tate MD LABORATORY Final Result [facility] [address] [place] [address], [place] * (ABNORMAL) COMPREHENSIVE METABOLIC PANEL (06/15/2024 10:29 AM EDT) Pathologist [facility] Protein, Total 6.7 6.3 - 8.0 g/dL 06/15/2024 11:12 AM EDT [facility] Albumin 4.3 3.9 - 4.9 g/dL 06/15/2024 11:12 AM EDT [facility] Calcium, Total 10.1 8.5 - 10.2 mg/dL 06/15/2024 11:12 AM [facility] Bilirubin, Total 0.5 0.2 - 1.3 mg/dL 06/15/2024 11:12 AM [facility] Alkaline Phosphatase 93 34 - 123 U/L 06/15/2024 11:12 AM [facility] AST 19 13 - 35 U/L 06/15/2024 11:12 AM [facility] ALT 10 7 - 38 U/L 06/15/2024 11:12 AM [facility] Glucose 95 74 - 99 mg/dL 06/15/2024 11:12 AM [facility] Comment: The [place] Diabetes Association (ADA) provides guidance for cutoff [...] Standards of Medical Care in Diabetes 2016, [place] [employer] Association. Diabetes Care. 2016.39(Suppl 1). BUN 12 7 - 21 mg/dL 06/15/2024 11:12 AM [facility] Creatinine 0.80 0.58 - 0.96 mg/dL 06/15/2024 11:12 AM [facility] Sodium 139 136 - 144 mmol/L 06/15/2024 11:12 AM [facility] Potassium 3.5(L) 3.7 - 5.1 mmol/L 06/15/2024 11:12 AM [facility] Chloride 98 98 - 107 mmol/L 06/15/2024 11:12 AM [facility] CO2 31(H) 22 - 30 mmol/L 06/15/2024 11:12 AM EDT [facility] Anion Gap 10 8 - 15 mmol/L 06/15/2024 11:12 AM EDT [facility] Estimated Glomerular Filtration Rate 76 >=60 mL/min/1. 73m 06/15/2024 11:12 AM EDT [facility] Comment:Estimated Glomerular Filtration Rate (eGFR) [...] us Rm Tate MD LABORATORY Final Result [facility] [address] [place] [address] * (ABNORMAL) COMPLETE BLOOD COUNT AND DIFFERENTIAL (06/15/2024 10:29 AM EDT) WBC 5.03 3.70 - 11.00 k/uL 06/15/2024 10:42 AM EDT [facility] RBC 4.14 3.90 - 5.20 m/uL 06/15/2024 10:42 AM EDT [facility] Hemoglobin 12.8 11.5 - 15.5 g/dL 06/15/2024 10:42 AM EDT [facility] Hematocrit 38.3 36.0 - 46.0 % 06/15/2024 10:42 AM EDT [facility] MCV 92.5 80.0 - 100.0 fL 06/15/2024 10:42 AM EDT [facility] MCH 30.9 26.0 - 34.0 pg 06/15/2024 10:42 AM EDT [facility] MCHC 33.4 30.5 - 36.0 g/dL 06/15/2024 10:42 AM EDT [facility] RDW-CV 12.9 11.5 - 15.0 % 06/15/2024 10:42 AM EDT [facility] Platelet Count 149(L) 150 - 400 k/uL 06/15/2024 10:42 AM EDT [facility] MPV 9.3 9.0 - 12.7 fL 06/15/2024 10:42 AM EDT [facility] Neutrophils % 63.4 % 06/15/2024 10:42 AM EDT [facility] Abs Neut 3.19 1.45 - 7.50 k/uL 06/15/2024 10:42 AM EDT [facility] Lymphocytes % 25.0 % 06/15/2024 10:42 AM EDT [facility] Abs Lymph 1.26 1.00 - 4.00 k/uL 06/15/2024 10:42 AM EDT [facility] Monocytes % 7.4 % 06/15/2024 10:42 AM EDT [facility] Abs Loup 0.37 <0.87 k/uL 06/15/2024 10:42 AM EDT [facility] Eosinophils % 3.2 % 06/15/2024 10:42 AM EDT [facility] Abs Eosin 0.16 <0.46 k/uL 06/15/2024 10:42 AM EDT [facility] Basophils % 0.6 % 06/15/2024 10:42 AM EDT [facility] Abs Baso 0.03 <0.11 k/uL 06/15/2024 10:42 AM EDT [facility] Immature Granulocytes % 0.4 % 06/15/2024 10:42 AM EDT [facility] Abs Immature Gran <0.03 <0.10 k/uL 025 10:42 AM EDT [facility] NRBC 0.0 /100 WBC 06/15/2024 10:42 AM EDT [facility] Absolute nRBC <0.01 <0.01 k/uL 06/15/2024 10:42 AM EDT [facility] Diff Type Auto 06/15/2024 10:42 AM EDT [facility] Blood BLOOD SPECIMEN / Unknown Venipuncture / Unknown 06/15/2024 10:29 AM EDT 06/15/2024 10:29 AM EDT Rm Tate MD LABORATORY Final Result [facility] [address] [place] [address] * HEP C AB IA W/CONF SCRN (12/03/2021 2:27 PM EDT) Hep C Antibody IA Negative Negative 12/04/2021 10:17 AM EDT [facility] Comment:The result suggests no evidence of active infection with Hepatitis C virus. Should recent infection be suspected, repeat testing may be considered 4-6 weeks after this draw. Blood BLOOD SPECIMEN / Unknown Venipuncture / Unknown 12/03/2021 2:27 PM EDT 12/03/2021 2:27 PM EDT Rm Tate MD LABORATORY Final Result [facility] [address] [place] [address], from Last 3 Months or Most Recently Relevant to Health Maintenance Insurance MEDICARE MEDICARE RAILROAD [facility] MEDICARE [facility] [place] [address] MEDICARE RAILROAD Advance Directives Documents on File Type Date Recorded Patient Pulmonary Physician Expl anation Advance Directive(s) 10/15/2021 Advance Directives * Full Code (Latest Code Status on File) Date Activated Date Inactivated Comments 01/02/2022 2:42 PM 01/06/2022 5:21 PM Question Answer Comments Full Code Order Discussed With: Patient * DNR-CCA Date Activated Date Inactivated Comments 01/29/2021 4:04 PM 02/03/2021 5:19 PM Question Answer Comments DNR Order Discussed With: Patient and Decision S urrogate Maker Care Teams Bath Steward Relationship Specialty Start Date End Date Wong Javed DO [address] [place] [address] PCP - General Internal Medicine 11/04/16 Rm Tate MD [address] [place] [address] Physician Hematology/Oncology 03/01/19 [place] [address] [place] [address] Physician Blood and Marrow Transplant 09/17/21 France Boswell, HAMZAH Specialty Metal Tank Builder Hematology/Oncology 10/22/23 Dr Hailee Cartagena [address] [place] [address] Physician Oncology 03/05/23
--- OUTSIDE RECORDS SUMMARY | 2024-08-16 14:49 | XMS_ITS | Encounter Summary ---
Author Organization [facility] Address [address] [place] [address] Care Team Providers Care Books Salesperson Name Role Phone Wong Javed Primary Care Provider [phone] Verónica Shepard RN Unavailable [phone] Rm Tate MD Unavailable [phone] Mary Bear PA-C Unavailable [phone] Gracia Bruner MD Unavailable Dorinda Dayl RN Unavailable [phone] Tahira Carrillo Unavailable [phone] France Boswell RN Unavailable Unavailable Source Comments In the event this information is protected by the Federal Confidentiality of Alcohol and Drug AbusePatient Records regulations: The Federal rules restrict any use of the information to criminally investigate or prosecute any alcohol or drug abuse patient.[facility] Encounter Details Date Type Department Care Team [...] N ot on file 01/28/2020 Data from: https://www.neighborhoodatlas.medicine.[facility]/. 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 Tate 09/29/24, labs 1 week prior documented as of this encounter Visit Diagnoses Not on filedocumented in this encounter Additional Health Concerns Infection Onset Date Last Indicated Resolved Time COVID-19 Rule-Out 12/30/2021 12/30/2021 12/30/2021 4:25 PM EST documented as of this encounter Care Teams Books Salesperson Relationship Specialty Start Date End Date Wong Javed DO [address] [place] [address] PCP - General Internal Medicine 11/04/16 Verónica Shepard RN [address] [place] [address] [place] [address] Specialty Steel Die Printer Hematology/Oncology 02/04/17 09/15/23 Rm Tate MD [address] [place] [address] [place] [address] Physician Hematology/Oncology 03/01/19 Mary Bear, PAStacyC [address] [place] [address] [place] [address] Physician Information Security Director Hematology/Oncology 03/01/19 [place] [address] [place] [address] Physician Blood and Marrow Transplant 09/17/21 Dorinda Daly, HAMZAH [address] [place] [address] Specialty Steel Die Printer Blood and Marrow Transplant 09/17/21 04/03/22 Tahira Carrillo LISW [address] [place] [address] Respiratory Technician Blood and Marrow Transplant 10/09/21 05/28/22 France Boswell, HAMZAH Specialty Steel Die Printer Hematology/Oncology 10/22/23 Dr Hailee Cartagena [address] [place] [address] Physician Oncology 03/05/23 documented as of this encounter
--- OUTSIDE RECORDS SUMMARY | 2024-08-16 14:49 | XMS_ITS | Encounter Summary ---
Author Organization [facility] Address [address] [place] [address] Care Team Providers Care Medical Doctor Name Role Phone Wong Javed Primary Care Provider [phone] Verónica Shepard RN Unavailable [phone] Rm Tate MD Unavailable [phone] Mary Bear PA-C Unavailable [phone] Gracia Bruner MD Unavailable Dorinda Daly RN Unavailable [phone] Tahira Carrillo Unavailable [phone] France Boswell RN Unavailable Unavailable Source Comments In the event this information is protected by the Federal Confidentiality of Alcohol and Drug AbusePatient Records regulations: The Federal rules restrict any use of the information to criminally investigate or prosecute any alcohol or drug abuse patient.[facility] Encounter Details Date Type Department [...] N ot on file 01/28/2020 Data from: https://www.neighborhoodatlas.medicine.[facility]/. 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 Tate 09/29/24, labs 1 week prior documented as of this encounter Visit Diagnoses Not on filedocumented in this encounter Additional Health Concerns Infection Onset Date Last Indicated Resolved Time COVID-19 Rule-Out 01/29/2021 01/28/2021 02/18/2021 8:51 PM EST COVID-19 Rule-Out 12/30/2021 12/30/2021 12/30/2021 4:25 PM EST documented as of this encounter Care Teams Medical Doctor Relationship Specialty Start Date End Date Wong Javed DO [address] [place] [address] PCP - General Internal Medicine 11/04/16 Verónica Shepard RN [address] [place] [address] Specialty Plastics Fabricator And Assembler Hematology/Oncology 02/04/17 09/15/23 Rm Tate MD [address] [place] [address] Physician Hematology/Oncology 03/01/19 Mary Bear, PAStacyC [address] [place] [address] [place] [address] Physician Access Representative Hematology/Oncology 03/01/19 [place] [address] [place] [address] Physician Blood and Marrow Transplant 09/17/21 Dorinda Daly, HAMZAH [address] [place] [address] Specialty Plastics Fabricator And Assembler Blood and Marrow Transplant 09/17/21 04/03/22 Tahira Carrillo LISW [address] [place] [address] Fuller Brush Man Blood and Marrow Transplant 10/09/21 05/28/22 France Boswell, HAMZAH Specialty Plastics Fabricator And Assembler Hematology/Oncology 10/22/23 Dr Hailee Cartagena [address] [address] Physician Oncology 03/05/23 documented as of this encounter
--- OUTSIDE RECORDS SUMMARY | 2024-08-16 14:49 | XMS_ITS | Encounter Summary ---
Author Organization [facility] Address [address] [place] [id number] Care Team Providers Care Wink Cutter Operator Name Role Phone Wong Javed Primary Care Provider [phone] Verónica Shepard RN Unavailable [phone] Rm Tate MD Unavailable [phone] Mary Bear PA-C Unavailable [phone] Gracia Bruner MD Unavailable Dorinda Daly RN Unavailable [phone] Tahira Carrillo Unavailable [phone] France Boswell RN Unavailable Unavailable Source Comments In the event this information is protected by the Federal Confidentiality of Alcohol and Drug AbusePatient Records regulations: The Federal rules restrict any use of the information to criminally investigate or prosecute any alcohol or drug abuse patient.[facility] Encounter Details Date Type Department Care [...] N ot on file 01/28/2020 Data from: https://www.neighborhoodatlas.med[facility].edu/. Last address used for calculation Not on file 01/28/2020 Comments No Sex and Gender Information Value Date Recorded Sex Assigned at Female 10/07/2021 9:30 AM EDT Legal Sex Female 9:02 AM EDT Gender Identity Female 10/07/2021 9:30 AM EDT Sexual Orientation Straight 10/07/2021 9: 30 AM EDT Occupation Industry Job Start Date Job End Date [employer] Not on file Not on [...] Description 09/23/2024 10:30 AM EDT Office Visit [facility] [address] [place] [address] [place] [address] lab 09/30/2024 9:45 AM EDT Visit (SP) Office Hematology [address] [place] [address] Rm Tate MD [address] [place] [address] Tate 09/29/24, labs 1 week prior documented as of this encounter Visit Diagnoses Not on filedocumented in this encounter Additional Health Concerns Infection Onset Date Last Indicated Resolved Time COVID-19 Rule-Out 01/29/2021 01/28/2021 02/18/2021 8:51 PM EST COVID-19 Rule-Out 12/30/2021 12/30/2021 12/30/2021 4:25 PM EST documented as of this encounter Care Teams Wink Cutter Operator Relationship Specialty Start Date End Date Wong Javed DO [address] [place] [address] PCP - General Internal Medicine 11/04/16 Verónica Shepard RN [address] [facility] [place] [address] Specialty Watch Guard Gate Hematology/Oncology 02/04/17 09/15/23 Rm Tate MD [address] [facility] [place] [address] Physician Hematology/Oncology 03/01/19 Mary Bear PA-C [address] [facility] [place] [address] Physician Angle Roll Operator Hematology/Oncology 03/01/19 [place] [address] [place] [address] Physician Blood and Marrow Transplant 09/17/21 Dorinda Daly, HAMZAH [address] [place] [address] Specialty Watch Guard Gate Blood and Marrow Transplant 09/17/21 04/03/22 Tahira Carrillo LISW [address] [place] [address] Cheerleading Coach Blood and Marrow Transplant 10/09/21 05/28/22 France Boswell, HAMZAH Specialty Watch Guard Gate Hematology/Oncology 10/22/23 Dr Hailee Cartagena [address] [place] [id number] Physician Oncology 03/05/23 documented as of this encounter
--- OUTSIDE RECORDS SUMMARY | 2024-08-16 14:49 | XMS_ITS | Data Portability ---
Author Organization [facility] CAREEoeMobile, autoContract Address Pending sale to [facility] [facility] [address] [place] [address] Care Team Providers Care Car Body Mechanic Name Role Phone WONG PRIETO Primary Care Provider [phone] Assessment Encounter Date Assessment Date Assessment LastModified [...] symptoms PLAN -rx: Zofran -fu: pcp Wong Prieto DIAGNOSIS Not available 05/24/2024 14:25:39 Plan of Treatment Reminders Order Date Submit Date Provider Last Modified By Organization Details Last Modified Time Details Appointments None recorded. Lab culture, urine 2023 024 [facility], [address] [place] [address], [address], 07:35:45 SARS CoV 2 RNA, QL, nasopharynx 2023 024 YASHIRA [facility], [address], [place], [address], 4 09:36:28 culture, urine 2023 024 [place] [facility], [address], [place], [address], 4 11:02:59 Referral urologist referral 2023 024 [email or web address] [email or web address] Not available 13:17:29 Procedures None recorded. Surgeries None recorded. Imaging None recorded. Medication Orders ondansetron 4 mg disintegrat ing tablet 2024 025 [facility] [address] [place], [address], 5 13:31:38 Macrobid 100 mg capsule 2023 025 [facility] [address] [place], [address], 5 13:14:00 doxycycline hyclate 100 mg capsule 2023 024 [facility] [address], [address] [place], [address], 4 09:28:08 Medrol (Collin) 4 mg tablets in a dose pack 2023 024 [facility] [address] [place], [address], 4 09:28:11 Claritin 10 mg tablet 2023 024 [facility] [address] [place], [address], 4 09:33:12 azelastine 137 mcg (0.1 %) nasal spray 2023 024 [facility] [address] [place], [address], 4 09:33:52 benzonatate 200 mg capsule 2023 024 [facility] [address] [place], [address], 4 15:32:20 ipratropium bromide 42 mcg (0.06 %) nasal spray 2023 024 [facility] [address] [place], [address], 4 15:32:18 Macrobid 100 mg capsule 2023 024 [email or web address] 3 [facility] [address] [place], [address], 5 13:13:53 Patient TargetsNo targets recorded. Patient Instructions Encounter Date Encounter Id Patient Instructions Last Modified By Organization Details Last Modified Time 04/01/2023 [id number] URINARY TRACT INFECTION A urinary tract infection, [...] if have question/concern. 3. Patient instructed that [facility] IS OPEN EVERY DAY, EVERY HOLIDAY, AND EVERY WEEKEND FROM 8 AM to 8 PM - [phone] extension 1 4. Patient directed to CALL 911/and/or GO IMMEDIATELY to the emergency dept if symptoms worsen. Not available 04/01/2023 10:09:09 04/30/2023 [id number] Viral Respirator y Infection: Care Instructions Viruses [...] specific medicine your doctor prescribes. Take an qdki-pas-gtutwyt pain medicine, such as acetaminophen (Tylenol), ibuprofen [...] if have question/concern. 3. Patient instructed that [facility] EVERY DAY, EVERY HOLIDAY, AND EVERY WEEKEND FROM 8 AM to 8 PM - [phone] extension 1 4. Patient directed to CALL 911/and/or GO IMMEDIATELY to the emergency dept if symptoms worsen [email or web address] Not available 04/30/2023 14:01:58 05/06/2023 [id number] allergies: care instructions Not available 05/06/2023 16:19:55 managing your allergies: care instructions Not available 05/06/2023 16:19:55 cough: care instructions Not available 05/06/2023 15:50:24 1. Patient to follow up here for laboratory and medication review/evaluation /treatment 2. Patient directed to RETURN ANYTIME if have question/concern 3. Patient instructed that [facility] IS OPEN EVERY DAY, 8 AM to 8 PM, EVERY WEEKEND AND HOLIDAY - [phone] 4. Patient directed to CALL 911/and/or GO IMMEDIATELY to the emergency dept if symptoms worsen. Not available 05/06/2023 15:51:54 05/27/2023 [id number] URINARY TRACT INFECTION A urinary tract infection, [...] if have question/concern 3. Patient instructed that [facility] IS OPEN EVERY DAY, 8 AM to 8 PM, EVERY WEEKEND AND HOLIDAY - [phone] 4. Patient directed to CALL 911/and/or GO IMMEDIATELY to the emergency dept if symptoms worsen. 1. Patient to follow up with PRIMARY CARE and or here if the symptoms do not improve. 2. Patient directed to RETURN ANYTIME if have question/concern. 3. Patient instructed that [facility] IS OPEN EVERY DAY, EVERY HOLIDAY, AND EVERY WEEKEND FROM 8 AM to 8 PM - [phone] extension 1 4. Patient directed to CALL 911/and/or GO IMMEDIATELY to the emergency dept if symptoms worsen. [email or web address] Not available 05/27/2023 09:31:54 05/24/2024 [id number] nausea and vomiting: care instructions Not available 05/24/2024 14:26:17 1. Patient to follow up with PRIMARY CARE and or here if the symptoms do not improve. 2. Patient directed to RETURN ANYTIME if have question/concern. 3. Patient instructed that [facility] OPEN EVERY DAY, EVERY HOLIDAY, AND EVERY WEEKEND FROM 8 AM to 8 PM - [phone] extension 1 4. Patient directed to CALL [...] URINE , ROUTI NE Micro Numbe r: [id number] Test Statu s: Final Speci men [...] port Tube. Not Available [facility] [address], [place], [address], 04/03/2023 02:27:07 04/30/19 24 04/30/2023 RPP - VIRAL abnormal status negative Not Available [facility] [address], [place], [address], 05/01/2023 09:36:29 04/30/19 24 05/01/2023 RPP - BACTE RIAL streptococcu s pneumoniae NOT DETECT ED Not Available [facility] [address], [place], [address], 05/01/2023 09:36:28 04/30/19 24 05/01/2023 RPP - BACTE RIAL bordetella pertussis/ho lmesii NOT DETECT ED not detect ed Not Available [facility] [address], [place], [address], 05/01/2023 09:36:28 04/30/19 24 05/01/2023 RPP - BACTE RIAL chlamydophil a pneumoniae NOT DETECT ED not detect ed Not Available [facility] [address], [place], [address], 05/01/2023 09:36:28 04/30/19 24 05/01/2023 RPP - BACTE RIAL haemophilus influenzae NOT DETECT ED not detect ed Not Available [facility] [address], [place], [address], 05/01/2023 09:36:28 04/30/19 24 05/01/2023 RPP - BACTE RIAL klebsiella pneumoniae NOT DETECT ED not detect ed Not Available [facility] - [facility] Facility [address], [place], [address], 05/01/2023 09:36:28 04/30/19 24 05/01/2023 RPP - BACTE RIAL legionella (pneumophila NOT DETECT ED not detect ed Not Available [facility] [address], [place], [address], 05/01/2023 09:36:28 04/30/19 24 05/01/2023 RPP - BACTE RIAL moraxella catarrhalis NOT DETECT ED not detect ed Not Available [facility] - External Facility [address], [place], [address], 05/01/2023 09:36:28 04/30/19 24 05/01/2023 RPP - BACTE RIAL mycoplasma pneumoniae NOT DETECT ED not detect ed Not Available [facility] [address], [place], [address], 05/01/2023 09:36:28 04/30/19 24 05/01/2023 RPP - BACTE RIAL salmonella spp NOT DETECT ED not detect ed Not Available [facility] [address], [place], [address], 05/01/2023 09:36:28 04/30/19 24 05/01/2023 RPP - BACTE RIAL staphylococc us aureus NOT DETECT ED not detect ed Not Available [facility] [address], [place], [address], 05/01/2023 09:36:28 04/30/19 24 05/01/2023 RPP - BACTE RIAL streptococcu s pneumoniae NOT DETECT ED not detect ed Not Available [facility] - [facility] [address], [place], [address], 05/01/2023 09:36:28 04/30/19 24 05/01/2023 COVID 19 (RT-P CR) 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 first test for condition N Not Available [facility] [address], [place], [address], 05/01/2023 09:36:27 04/30/19 24 05/01/2023 COVID 19 (RT-P CR) 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 Not Available [facility] [address], [place], [address], 05/01/2023 09:36:27 04/30/19 24 05/01/2023 COVID 19 (RT-P CR) 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 symptomatic Y Not Available [facility] [address], [place], [address], 05/01/2023 09:36:27 04/30/19 24 05/01/2023 COVID 19 (RT-P CR) 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 date of symptom onset Not Available [facility] [address], [place], [address], 05/01/2023 09:36:27 04/30/19 24 05/01/2023 COVID 19 (RT-P CR) 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 hospitalized because of this condition N Not Available [facility] [address], [place], [address], 05/01/2023 09:36:27 04/30/19 24 05/01/2023 COVID 19 (RT-P CR) 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 in ICU N Not Available [facility] [address], [place], [address], 05/01/2023 09:36:27 04/30/19 24 05/01/2023 COVID 19 (RT-P CR) 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 resides in A congregate care setting N Not Available [facility] [address], [place], [address], 05/01/2023 09:36:27 04/30/19 24 05/01/2023 COVID 19 (RT-P CR) 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 status N Not Available [facility] - [facility] Facility [address], [place], [address], 05/01/2023 09:36:27 04/30/19 24 05/01/2023 COVID 19 (RT-P CR) 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 covid-19 (PCR) NOT DETECT ED negative Not Available [facility] - [facility] Facility [address], [place], [address], 05/01/2023 09:36:27 04/30/19 24 05/01/2023 COVID 19 (RT-P CR) 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 covid-19 (PCR) NEGATI VE not detect ed negative Not Available [facility] [address], [place], [address], 05/01/2023 09:36:27 05/27/19 24 05/29/2023 CULTU RE, URINE , ROUTI NE culture, urine, routine SEE NOTE CULTU RE, URINE , ROUTI NE Micro Numbe r: [id number] Test Statu s: Final Speci men Sourc e: Urine Speci men Quali ty: Adequ ate Resul t: No Growt h A alecia yoo t has been faxed to the [facility]: Faxed to: [phone] on: 05/28 07:08 Not Available [facility] [address], [place], [address], 05/29/2023 07:35:45 Result Notes None recorded. Problems Name Problem SNOMED Code Status Onset Date Resolution Date Notes Provider Name and Address Organization Details Recorded Time Herpes zoster 4523922 [facility] 2023 [facility] 4 10:16:45 Anxiety 50460614 Active 2023 [facility] 4 10:16:52 Depressive disorder 21597706 Active 2023 [facility] 4 10:17:01 Hypothyroidism 54462815 Active 2023 [facility] 4 10:17:10 Problem Notes None recorded. Procedures Surgical History Date Name Laterality Status Provider Name and Address Organization Details Recorded Time 05/27/19 24 Urine dip stick completed Magaly Sinclair, [employer], [address], [place], [address], [facility] 05/27/2023 09:26:21 04/01/19 24 Urine dip stick completed Bhavani Reyes, [employer], [address], [place], [address], [facility] 04/01/2023 10:47:53 chimeric antigen receptor T-cell immunotherapy completed Wilder Mcguire [facility] 04/01/2023 10:18:50 Imaging Results None recorded. Procedure Notes None recorded. Medical Equipment None Reported. Allergies Allergen ID Allergen Name Allergen Category Reaction Reaction Severity Criticality Documentation Date Start Date Code Code System Note Provider Name and Address Organization Details Recorded Time 99506 Bactrim medicatio n Not available Not available Not available 04/01/2023 59133 9 RxNorm [facility] 4 10:10:24 38519 Substance with sulfonami de structure and antibacte rial mechanism of action (substanc e) medicatio n Not available Not available Not available 04/01/2023 01221 8003 SNOMED [facility] 4 10:13:25 50092 clindamyc in Not available Not available Not available Not available 04/01/2023 2582 RxNorm [facility] 4 10:14:14 86866 Darvocet- N medicatio n Not available Not available Not available 04/01/2023 18587 UNK Wilder salazar, [facility] 4 10:14:20 38612 acetamino phen / oxycodone medicatio n Not available Not available Not available 04/01/2023 43739 3 RxNorm [facility] 4 10:14:27 11004 tramadol medicatio n Not available Not available Not available 04/01/2023 33873 RxNorm Wilder salazar, [facility] 4 10:14:31 36519 Tylenol with Codeine medicatio n Not available Not available Not available 04/01/2023 55707 6 RxNorm Wilder salazar, [facility] 4 10:14:40 19527 linezolid medicatio n Not available Not available Not available 04/01/2023 53570 6 RxNorm Wilder salazar, [facility] 4 10:15:36 Medications Name Sig Start Date [...] azelastine 137 mcg (0.1 %) nasal spray Foss 2 sprays twice a day by intranasa l route. 05/26 completed Not Available Not Available Not Available ipratropium bromide 42 mcg (0.06 %) nasal spray Foss 2 sprays 3 times a day by [...] /min 97 % 97 % 97.3 [degF] 79526.8 2 g 25 kg/m2 152.4 cm 111 mm[Hg] 70 mm[Hg] Wilder Mcguire [facility] 4 10:39:17 Date Recorded Body height Respiratory rate Body mass index (BMI) Body weight Heart rate Body temperature Oxygen saturation Oxygen saturation in Arterial blood by Pulse oximetry Systolic blood pressure Diastolic blood pressure Provider Name and Address Organization Details Last Updated DateTime 4 152.4 cm 18 /min 25.2 kg/m2 93142.4 2 g 101 /min 98 [degF] 97 % 97 % 100 mm[Hg] 69 mm[Hg] Marilin Boston [facility] 4 13:57:54 Date Recorded Body height Body temperature Respiratory rate Heart rate Body mass index (BMI) Body weight Oxygen saturation Oxygen saturation in Arterial blood by Pulse oximetry Systolic blood pressure Diastolic blood pressure Provider Name and Address Organization Details Last Updated DateTime 4 152.4 cm 98.1 [degF] 18 /min 92 /min 25.2 kg/m2 31254.4 2 g 96 % 96 % 117 mm[Hg] 72 mm[Hg] Christine Darrius [facility] 4 15:31:43 Date Recorded Body height Heart rate Respiratory rate Body temperature Body mass index (BMI) Body weight Oxygen saturation Oxygen saturation in Arterial blood by Pulse oximetry Systolic blood pressure Diastolic blood pressure Provider Name and Address Organization Details Last Updated DateTime 5 152.4 cm 97 /min 18 /min 98.6 [degF] 26 kg/m2 75112.7 9 g 98 % 98 % 106 mm[Hg] 68 mm[Hg] Bailey Knight [facility] 5 13:11:48 Date Recorded Body height Provider Name an d Address Organization Details Last Updated DateTime 05/27/2023 152.4 cm Magaly Sinclair, [employer], [address], [place], [address], [facility] 05/27/2023 09:21:40 Date Recorded Respiratory rate Body temperature Heart rate Body mass index (BMI) Body weight Oxygen saturation Oxygen saturation in Arterial blood by Pulse oximetry Systolic blood pressure Diastolic blood pressure Provider Name and Address Organization Details Last Updated DateTime 4 18 /min 95 [degF] 81 /min 25.4 kg/m2 19091.0 1 g 95 % 95 % 93 mm[Hg] 57 mm[Hg] JOSHUA Mackenzie [facility] 4 09:38:45 Social History None recorded. Functional [...] completed ALVARADO Mckinley [facility] 04/30/2023 13:56:48 COVID-19, mRNA, LNP-S, PF, 100 mcg/0.5mL dose or 50 mcg/0.25mL dose 1 completed Marilin Lape [facility] 04/30/2023 13:56:48 pneumococcal polysaccharide PPV23 9 completed Marilin [place] null, [facility] 04/30/2023 13:56:48 Influenza, split virus, trivalent, preservative 8 completed Marilin [place] null, [facility] 04/30/2023 13:56:49 Past Encounters Encounter ID Performer Location Encounter Start Date Encounter Closed Date Diagnosis/Indication Diagnosis SNOMED-CT Code Diagnosis ICD10 Code Diagnosis Note [id number] Bhavani Reyes NP, [address] [address] 04/01/2023 09:59:33 04/01/2023 10:45:31 Urinary tract infectious disease 29517469 N39.0 Dysuria 24304100 R30.0 Increased frequency of urination 227823468 R35.0 Microscopic hematuria 19 7338321 R31.29 Likely related to UTI, if it does not resolve with TX, please RTC or PCP for further testing. [id number] Akanksha Lazo NP, [address] [address] 04/30/2023 13:50:01 04/30/2023 14:18:42 Acute upper respiratory infection 27850171 J06.9 Suspected COVID-19 59404 4004 Z20.822 Discussed appropriat e quarantine per [facility]. Results will be available in [facility] mary 24-48 hours. If SOB or CP develop, proceed to ER. Dry cough 04096661 R05.9 Posterior rhinorrhea 758 69443 R09.82 [id number] Magaly Sinclair NP, [address] [address] 05/06/2023 15:25:54 05/06/2023 15:52:39 Productive cough-yellow sputum 164184703 R09.3 Posterior rhinorrhea 758 40816 R09.82 Environmental allergy 42 6378219 T78.49XA [id number] Magaly Sinclair NP, S [address] [address] 05/27/2023 09:20:20 05/27/2023 09:51:11 Urgent desire to urinate 81495625 R39.15 Dysuria 23056608 R30.0 Urinary tr act infectious disease 22232431 N39.0 Urine leuk ocyte test = ++ 896624067 R82.998 Blood in urine 35799828 R31.9 patient returning to [place] Thursday05/30/2023 and will follow up with her PCP [id number] Linh Rangel NP,S [facility] [address] [facility] [address] [place] [address] 05/24/2024 12:50:06 05/24/2024 13:40:10 Nausea 169566535 R11.0 B.R.A.T DIET -I recommende d to keep a LIQUID DIET for 24-48 hours-then move to a B.R.A.T. diet.-this diet is used to help control diarrhea and vomiting symptoms.- Frequent feeding of tea, flat carbonated beverages are encouraged . In 2 days, if you can tolerate clear liquids, you may have:-*Ban anas *Rice *Applesauc e *Beckett (or other simple starches like crackers, soups, [...] Gomez SIS Acute uppe r respiratory infection 27560506 J06.9 Health Concerns Section Related Observation LastModified by Organization Detai ls LastModified Time None Recorded Concern Status LastModified by Organization Details LastModified Time None Recorded Advance Directives Directive None Recorded Payers Insurance Date Sequence Insurance Name Policy Number Policy Varma Covered Member ID Varma Member ID Guarantor Name 05/31/2024 2 [facility] (MEDICARE SUPPLEMENT) Matilda Owens [id number] Matilda Owens 05/24/2024 1 [facility]-[address] [facility] (MEDICARE) Matilda Owens [id number] Matilda Owens Notes Date Note Type [...] times per night Medication reconciliation done. Bhavani Reyes NP, [address], [place], [address], [facility] 04/01/2023 10:48:03 04/30/2023 text/html Upper Respirator y (URI) Symptoms IM FMReported bypatient.Location:c hest; nasal Presentation:nasal discharge;dry cough Severity:no pain Duration:constant [...] [address], [place], [address], [facility] [employer] [facility] 04/30/2023 14:25:10 05/06/2023 text/html Upper Respirator y [...] [address], [place], [address], [facility] [employer] [facility] 05/06/2023 16:20:10 05/27/2023 text/html Bladder Problem( s) [...] S [address], [place], [address], [facility] [employer] [facility] 05/27/2023 09:49:38 05/24/2024 text/html Nausea IM FMReported [...] NP,S [address], [place], [address], [facility] 05/24/2024 14:26:41 OBGyn Episode No OBEpisode recorded.
--- OUTSIDE RECORDS SUMMARY | 2024-08-16 14:49 | XMS_ITS | Data Portability ---
Author Organization [facility] / [facility], [place] Address [address] [place] [address] Care Team Providers Care Paid Internship Name Role Phone HAYLEY PRIETO Primary Care Provider Assessment No assessment recorded. Plan of Treatment Reminders Order Date Submit Date Provider Last Modified By Organization Details Last Modified Time Details Appointments None recorded. Lab None recorded. Referral None recorded. Procedures None recorded. Surgeries None recorded. Imaging None recorded. Medication Orders azithromyc in 250 mg tablet 2019 020 INTERFACE [facility] [address], [address] [place] [address], [address], 0 12:48:51 Patient TargetsNo targets recorded. Patient Instructions Encounter Date Encounter Id Patient Instructions Last Modified By Organization Details Last Modified Time 03/30/2019 [id number] PLAN 1. Patient to follow up with PCP within the next 5-7 days if symptoms persist 2. Patient directed to follow up here if unable to reach PCP 3. Patient instructed on hours of operation and location of each of our clinics ([place], [facility], [facility], [place], [place] and [place] locations), and they are encouraged to return for any questions, concerns, and evaluations. 4. Patient directed to CALL 911/and/or GO IMMEDIATELY to the emergency dept if symptoms worsen 5. Discussed natural and expected course of this diagnosis and need to alert me if symptoms do not follow expected course, or if any worse. [email or web address] Not available 03/30/2019 16:08:53 Reason for Referral None Reported. Procedures Surgical History Date Name Laterality Status Provider Name and Address Organization Details Recorded Time 03/30/19 18 kyphoplasty of fracture of cervical spine using fluoroscopic guidance completed [facility] 03/30/2019 12:41:34 11/24/19 17 kyphoplasty of fracture of spine using fluoroscopic guidance completed [facility] 03/30/2019 12:41:06 12/25/19 14 arthrocentesis completed [facility] 03/30/2019 12:41:14 08/24/19 00 LEFT Rotator Cuff Repair [facility] 03/30/2019 12:40:18 Imaging Results None recorded. Procedure Notes None recorded. Medical Equipment None Reported. Allergies Allergen ID Allergen Name Allergen Category Reaction Reaction Severity Criticality Documentation Date Start Date Code Code System Note Provider Name and Address Organization Details Recorded Time 4144 Ambien medicatio n Not available Not available Not available 03/30/2019 13224 5 RxNorm KELEIGH Root-year by [facility] 0 12:33:36 4145 Bactrim medicatio n Not available Not available Not available 03/30/2019 87690 9 RxNorm KELEIGH [facility] by [facility] 0 12:33:58 4146 clindamyc in Not available Not available Not available Not available 03/30/2019 2582 RxNorm KELEIGH [facility] by [facility] 0 12:34:04 4147 Darvocet- N medicatio n Not available Not available Not available 03/30/2019 57007 UNK KELEIGH Root[facility] by [facility] 0 12:34:10 4148 Product containin g penicilli n (product) medicatio n Not available Not available Not available 03/30/2019 74577 8001 SNOMED KELEIGH [facility] 0 12:34:15 4149 acetamino phen / oxycodone medicatio n Not available Not available Not available 03/30/2019 12334 3 RxNorm KELEIGH [facility] by [facility] 0 12:34:21 4150 Revlimid medicatio n Not available Not available Not available 03/30/2019 02501 5 RxNorm KELEIGH [facility] by [facility] 0 12:34:29 4151 Substance with sulfonami de structure and antibacte rial mechanism of action (substanc e) medicatio n Not available Not available Not available 03/30/2019 04507 8003 SNOMED KELEIGH [facility] 0 12:34:35 4152 tramadol medicatio n Not available Not available Not available 03/30/2019 69908 RxNorm KELEIGH [facility] by [facility] 0 12:34:41 4153 Tylenol with Codeine medicatio n Not available Not available Not available 03/30/2019 18399 6 RxNorm KELEIGH [facility] by [facility] 0 12:34:53 4154 linezolid medicatio n Not available Not available Not available 03/30/2019 65179 6 RxNorm KELEIGH [facility] 0 12:35:01 4155 Valcyte medicatio n Not available Not available Not available 03/30/2019 46597 9 RxNorm KELEIGH [facility] 0 12:35:14 Medications Name Sig Start Date Stop Date Status Note LastModified by Organization Details LastModified Time Colace 100 mg capsule Take 1 capsule every day by oral route at noon. active Not Available Not Available No t Available azithromycin 250 mg tablet TAKE 2 TABLETS (500 MG) BY ORAL ROUTE ONCE DAILY FOR 1 DAY THEN 1 TABLET (250 MG) BY ORAL ROUTE ONCE DAILY FOR 4 DAYS 2019 active Not Available Not Available Not Avai lable Elavil 10 mg tablet Take 1 tablet every day by oral route at bedtime. active Not Available Not Available No t Available levothyroxin e 25 mcg tablet Take 1 tablet every day by oral route. active Not Available Not Available No t Available pantoprazole 40 mg tablet,delay ed release Take 1 tablet every day by oral route. active Not Available Not Available No t Available gabapentin 300 mg capsule take 1 tablet in the morning and 2 tablets at bedtime active Not Available Not Available No t Available clonazepam 0.5 mg disintegrati ng tablet Place 1 tablet 3 times a day by translingua l route in the morning. active Not Available Not Available No t Available Pomalyst 4 mg capsule Take 1 capsule every day by oral route in the evening. active Not Available Not Available No t Available Vitals Date Recorded Heart rate Respiratory rate Body temperature Body height Body mass index (BMI) Body weight Oxygen saturation Oxygen saturation in Arterial blood by Pulse oximetry Systolic blood pressure Diastolic blood pressure Provider Name and Address Organization Details Last Updated DateTime 0 89 /min 17 /min 97.5 [degF] 154.94 cm 25.3 kg/m2 01177.3 8 g 97 % 97 % 100 mm[Hg] 62 mm[Hg] DOMINIC Root[facility] by [facility] 0 12:33:06 Social History None recorded. Functional Status None recorded. Mental Status None recorded. Family History Relationship Description Onset Age of this Age Resolved Age Notes LastModified by Organization Details LastModified Time Father No current problems or disability [email or web address] Not available 12:39:56 Mother No current problems or disability [email or web address] Not available 12:39:56 Medical History No medical history recorded. Gynecological HistoryNo gynecological history recorded. Obstetrics History GPAL:G 0 P 0 0 0 0 Past Encounters Encounter ID Performer Location Encounter Start Date Encounter Closed Date Diagnosis/Indication Diagnosis SNOMED-CT Code Diagnosis ICD10 Code Diagnosis Note [id number] [facility] [address] [place] [phone] 03/30/2019 11:58:39 03/30/2019 12:51:14 Streptococcal sore throat 97296459 J02.0 Acute laryngitis 3021421 J04.0 Acute pharyngitis 766790 003 J02.9 Health Concerns Section Related Observation LastModified by Organization Detai ls LastModified Time None Recorded Concern Status LastModified by Organization Details LastModified Time None Recorded Advance Directives Directive None Recorded Payers Insurance Date Sequence Insurance Name Policy Number Policy Varma Covered Member ID Varma Member ID Guarantor Name 06/28/2019 2 [facility] Matilda Owens [id number] Matilda Jiménez Graciela 03/30/2021 1 [facility] [facility] (MEDICARE) Matilda Owens [id number] Matilda Owens Notes Date Note Type Note Provider Name and Address Organization Details Recorded Time 03/30/2019 text/html Sore ThroatRepor caitlin bypatient.Location:b ilateral Onset/Timing:sudden Duration:03/28/2019 Quality:hoarseness;l aryngitis Severity:worsening Context:no recent travel; no one else with similar symptoms Alleviating factors:none Aggravating factors:none Associated Symptoms:no fever; no cough; no nausea; no vomiting patient presents after losing her voice. She reports to have a slight sore throat. Denies difficulty swallowing, coughing. [facility] 03/30/2019 16:22:18 OBGyn Episode No OBEpisode recorded.
--- OUTSIDE RECORDS SUMMARY | 2024-08-16 14:49 | XMS_ITS | Encounter Summary ---
Author Organization [facility] Address [address] [place] [address] Care Team Providers Care Commercial Portfolio Manager Name Role Phone Wong Javed DO Primary Care Provider [phone] Rm Tate MD Unavailable [phone] Gracia Bruner MD Unavailable France Boswell RN Unavailable Unavailable Source Comments In the event this information is protected by the Federal Confidentiality of Alcohol and Drug AbusePatient Records regulations: The Federal rules restrict any use of the information to criminally investigate or prosecute any alcohol or drug abuse patient.[facility] Encounter Details Date Type Department Care Team (Late st Contact Info) Description 06/22/2024 Telephone [facility]ematology [address] [facility] [address] [place], [place] [id number] Rm Tate MD [address] [place] [address] Social History Tobacco Use Types Packs/Day [...] N ot on file 01/28/2020 Data from: https://www.neighborhoodatlas.medicine.[facility]/. Last address used for calculation Not on file 01/28/2020 Comments No Sex and Gender Information Value Date Recorded Sex Assigned at Female 10/07/2021 9:30 AM EDT Legal Sex Female 9:02 AM EDT Gender Identity Female 10/07/2021 9:30 AM EDT Sexual Orientation Straight 10/07/2021 9: 30 AM EDT Occupation Industry Job Start Date Job End Date [employer] Not on file Not on file [...] calling: self Call patient at: on cell [phone] (home) [phone] (cell) Was an appointment scheduled: No Closing statement: Results or non-symptom based questions: Thank you for calling [facility], your call will be returned within the next business day. Cindy Borjas documented in this encounter Plan of Treatment Upcoming Encounters Date Type Department Care Team (Latest Contact Info) Description 09/23/2024 10:30 AM EDT Office Visit [facility] [address] [place] [address] lab 09/30/2024 9:45 AM EDT Visit (SP) Office Hematology [address] [place], [place] [phone] Rm Tate MD [address] [place] [address] [address] Tate 09/29/24, labs 1 week prior documented as of this encounter Visit Diagnoses Not on filedocumented in this encounter Care Teams Commercial Portfolio Manager Relationship Specialty Start Date End Date Wong Javed DO [address] [place] [address] PCP - General Internal Medicine 11/04/16 Rm Tate MD [address] [place] [address] Physician Hematology/Oncology 03/01/19 [place] [address] [place] [address] Physician Blood and Marrow Transplant 09/17/21 France Boswell, HAMZAH Specialty Education Faculty Member Hematology/Oncology 10/22/23 Dr Hailee Cartagena [address] [place] [address] Physician Oncology 03/05/23 documented as of this encounter
[2024-08-16 15:33] LABS: Bilirubin Urine NEGATIVE (NEGATIVE); Blood Urine TRACE-I (NEGATIVE); Clarity Urine SL CLOUDY (CLEAR); Color Urine LT. YELLOW (YELLOW); Glucose Urine UA NEGATIVE (NEGATIVE); Ketones Urine NEGATIVE (NEGATIVE); Leukocyte Esterase Urine LARGE (NEGATIVE); Nitrite Urine NEGATIVE (NEGATIVE); Protein Urine NEGATIVE (NEG/TRACE); Specific Gravity Urine 1.015 (1.005-1.025); Urobilinogen Urine 0.2 EU/dL (0.2-1.0)
== END 2024-08-16 14:41 | disposition home or self-care (01) ==
LOC: LAB 14:43
PROVIDERS: PCP Internal Medicine; Visit Provider Internal Medicine
DX: R30.0 Dysuria (principal)
CPT/HCPCS: 81003; 87086; 87088; 87186

== ENCOUNTER 2024-09-27 13:20 | Outpatient (OUT) | payer MEDICARE, OTHER, SELFPAY ==
[2024-09-27 14:15] LABS: Alanine Aminotransferase 23 U/L (14-59); Albumin Globulin Ratio 1.3; Albumin Level 4.0 g/dL (3.4-5.0); Alkaline Phosphatase 82 U/L (46-116); Anion Gap 8.5; Aspartate Amino Transferase 24 U/L (15-37); Blood Urea Nitrogen 15.0 mg/dL (7.0-18.0); Calcium 9.5 mg/dL (8.5-10.1); Carbon Dioxide 32.6 mmol/L (21.0-32.0); Chloride 106 mmol/L (98-107); Estimated GFR (African America >60 (>=60 mL/min/1.73m^2); Estimated GFR (Non-African Ame >60 (>=60 mL/min/1.73m^2); Globulin 3.0 g/dL; Glucose 94 mg/dL (74-106); Magnesium 2.0 mg/dL (1.8-2.4); Potassium 4.1 mmol/L (3.5-5.1); Sodium 143 mmol/L (136-145); Thyroid Stimulating Hormone 3.571 uIU/mL (0.358-3.740); Total Protein 7.0 g/dL (6.4-8.2)
== END 2024-09-27 13:21 | disposition home or self-care (01) ==
LOC: LAB 13:23
PROVIDERS: PCP Internal Medicine; Visit Provider Internal Medicine
DX: E06.3 Autoimmune thyroiditis (principal); C90.01 Multiple myeloma in remission; G25.81 Restless legs syndrome; E55.9 Vitamin D deficiency, unspecified
CPT/HCPCS: 36415; 80053; 82306; 83735; 84443